=== PATIENT | female | born 1950 | race Caucasian/White ===

== ENCOUNTER 2024-05-24 18:58 | Emergency (ER) | payer OTHER ==
[2024-05-24] MEDS ORDERED: NA CHLORIDE 0.9% 1,000 ML ONE ×2 (19:07→21:14)
[2024-05-24 19:33] LABS: Absolute Basophils 0.1 K/uL (0-0.5); Absolute Eosinophils 0.2 K/uL (0-0.5); Absolute Lymphocytes (CBC) 0.6 K/uL (0.7-4.9); Absolute Monocytes 0.2 K/uL (0.1-1.3); Absolute Neutrophil 0.3 K/uL (1.8-8.0); Basophils % 6.2 % (0-1.3); Eosinophils % 16.1 % (0-4.4); Hematocrit 20.1 % (36.0-45.0); Hemoglobin 6.3 g/dL (12.0-15.0); Lymphocytes % 38.2 % (15.3-44.8); MCH 23.1 pg (27.0-35.0); MCHC 31.2 g/dL (32.0-36.0); MCV 73.9 fL (80-100); MPV 8.5 fL (7.6-11.3); Monocytes % 16.5 % (3.3-12.3); Nucleated Red Blood Cells % 0.6 % (0-0); Platelets 254 thou/uL (152-406); RBC Red Blood Cell Count 2.72 M/uL (3.86-4.86); Red Cell Distribution Width 18.5 % (12.1-15.2)
[2024-05-24 19:47] LABS: Albumin 2.8 g/dL (3.4-5.0); Albumin/Globulin Ratio 0.9 (1.1-1.8); Alkaline Phosphatase 71 U/L (45-117); Anion Gap 13.7 mEq/L (5.0-15.0); BUN Blood Urea Nitrogen 25 mg/dL (7-18); Bicarbonate 24 mEq/L (21-32); Bilirubin Total 0.2 mg/dL (0.2-1.0); Globulin 3.1 g/dL (2.3-3.5); Glomerular Filtration Rate 88 ml/min (=/>90); Glucose Level 123 mg/dL (74-106); Potassium 3.7 mEq/L (3.5-5.1); Protein, Total 5.9 g/dL (6.4-8.2); Sodium Level 137 mEq/L (136-145)
[2024-05-24 19:54] LABS: ALT/SGPT < 14 U/L (13-56); AST/SGOT < 10 U/L (15-37)
[2024-05-24 19:55] LABS: PTT, Activated Partial Thromb 26.4 SECONDS (24.3-36.9); Protime INR 1.17
[2024-05-24] MEDS ORDERED: NA CHLORIDE 0.9% 250 ML ONE ×2 (20:00→22:25)
[2024-05-24] MEDS ORDERED: PANTOPRAZOLE 40 MG INJ ONE (20:00)
--- NOTE | 2024-05-24 20:45 | RAD REPORT ---
EXAM DESCRIPTION: Simi Single View05/24/2024 7:55 pm CLINICAL HISTORY: hypotension COMPARISON: No comparisons TECHNIQUE: Portable AP view of the chest. FINDINGS: The lungs are clear. No pneumothorax or effusion. The cardiomediastinal contours are unre markable. IMPRESSION: No acute cardiopulmonary process.
[2024-05-24 20:58] LABS: Band Neutrophils 1 % (0-1); Differential Total Cells Count 100; Eosinophils 20 % (0-3); Lymphocytes 38 % (15-42); Monocytes 8 % (0-10); Nucleated Red Blood Cells 3 /100WBC; Segmented Neutrophils 26 % (40-80)
[2024-05-24 20:59] LABS: Blood Morphology Comment NOTED (NOT SEEN); Hypochromasia 3+; Platelet Estimate ADEQ
--- NOTE | 2024-05-24 21:24 | RAD REPORT ---
EXAM DESCRIPTION: CT - Abdomen Pelvis W Contrast - 05/24/2024 8:41 pm CLINICAL HISTORY: abd pain, hypotension COMPARISON: No comparisons TECHNIQUE: Thin cut axial CT imaging of the abdomen and pelvis was performed following intravenous a dministration of iodinated contrast PE Multiplanar reformats were generated and reviewed. All CT scans are performed using dose optimization technique as appropriate and may include automated exposure control or mA/KV adjustment according to patient size. FINDINGS: No suspicious findings in the lung bases. The liver, spleen, adrenal glands, and pancreas show no suspicious findings. Gallbladder and biliary tree are also without suspicious finding. Symmetric renal function is seen with no hydronephrosis or suspicious renal mass. Fat containing smal l right lower renal pole 13 mm lesion suggesting a small angiomyolipoma. No dilated bowel loops. Pronounced wall thickening along a short segment of small bowel in the right hemipelvis, measuring approximately 6.6 cm in length. Lumen patency is maintained. Wall thickening is circumferential and measuring up to 2.5 cm in thickness. No free air, free fluid or inflammatory str anding. Mild colonic diverticulosis without evidence of acute diverticulitis No hernia, mass or bulky lymphadenopathy. The urinary bladder is without significant finding. No suspicious bony findings. Sequelae of posterior approach L3-S1 hardware fusion. IMPRESSION: Marked circumferential wall thickening along a short segment of small bowel in the right hemipelvis, favored to represent lymphomatous involvement given the history. No other suspicious masses or adenopathy in the abdomen and pelvis. Other incidental findings as above.
--- NOTE | 2024-05-24 21:31 | ER ---
Nurse's Notes [facility] Name: Selina Juan Age: 74 yrs Sex: Female : 1950 Arrival Date: 05/24/2024 Time: 18:58 Bed 2 Private MD: Diagnosis: Anemia, unspecified;GI Bleed/ Gastrointestinal hemorrhage, unspecified Presentation: 05/24 19:05 Acuity: TALISHA 2 iw 19:05 Chief complaint: EMS states: low BP, GI bleed, black stool today. hx of lymphoma, iw recently started on chemo. 19:05 Onset of symptoms. iw 19:24 Coronavirus screen: At this time, the client does not indicate any symptoms associated iw with coronavirus-19. Ebola Screen: No symptoms or risks identified at this time. Initial Sepsis Screen: Does the patient meet any 2 criteria? HR > 90 bpm. Does the patient have a suspected source of infection?. Risk Assessment: Do you want to hurt yourself or someone else? Patient reports no desire to harm self or others. 19:24 Method Of Arrival: EMS: [facility] iw Historical: - Allergies: 19:26 Flagyl; iw 19:26 Adhesive; iw - Immunization history:: Adult Immunizations up to date. - Infectious Disease History:: Denies. - Family history:: not pertinent. - Hospitalizations: : Patient was recently seen at. - Social history:: Smoking status: Patient denies any tobacco usage or history of. Screenin:31 [facility] ED Fall Risk Assessment (Adult) History of falling in the last 3 months, iw including since admission No falls in past 3 months (0 pts) Confusion or Disorientation No (0 pts) Intoxicated or Sedated No (0 pts) Impaired Gait No (0 pts) Mobility Assist Device Used No (0 pt) Altered Elimination No (0 pt) Score/Fall Risk Level 0 - 2 = Low Risk Oriented to surroundings, Maintained a safe environment. Abuse screen: Denies injuries from another. Nutritional screening: No deficits noted. Tuberculosis screening: No symptoms or risk factors identified. Assessment: 19:30 General: Appears uncomfortable, ill, Behavior is cooperative, drowsy. Neuro: Level of iw Consciousness is obeys commands, Oriented to person, place, time, situation, Moves all extremities. Full function. Cardiovascular: Respiratory: Respiratory effort is even, unlabored, Respiratory pattern is regular. GI: Abdomen is flat, non-distended, Reports black stool. Derm: Skin is pale. Musculoskeletal: Range of motion: intact in all extremities. 20:30 Reassessment: Patient appears in no apparent distress at this time. No changes from al5 previously documented assessment. Patient and/or family updated on plan of care and expected duration. Pain level reassessed. Patient is alert, oriented x 3, equal unlabored respirations, skin warm/dry/pink. 22:07 Reassessment: Patient appears in no apparent distress at this time. Patient and/or al5 family updated on plan of care and expected duration. Pain level reassessed. Patient is alert, oriented x 3, equal unlabored respirations, skin warm/dry/pink. patient is more alert at this time. Pain: Denies pain. 23:48 Reassessment: Patient appears in no apparent distress at this time. No changes from al5 previously documented assessment. Patient and/or family updated on plan of care and expected duration. Pain level reassessed. Patient is alert, oriented x 3, equal unlabored respirations, skin warm/dry/pink. 05/25 01:13 Reassessment: Patient appears in no apparent distress at this time. No changes from al5 previously documented assessment. Patient and/or family updated on plan of care and expected duration. Pain level reassessed. Patient is alert, oriented x 3, equal unlabored respirations, skin warm/dry/pink. 01:27 Reassessment: patient complete blood transfusion. al5 03:29 Reassessment: gave report to LAXMI brooks at [facility]. al5 Vital Signs: 05/24 19:22 BP 117 / 50; Pulse 108; Resp 18; Temp 98.3; Pulse Ox 100% on R/A; Weight 65.77 kg; iw Height 5 ft. 4 in. ; 20:00 BP 115 / 59; Pulse 102; Resp 19; Pulse Ox 99% on R/A; al5 20:30 BP 116 / 51; Pulse 96; Resp 19; Pulse Ox 100% on R/A; al5 21:00 BP 116 / 51; Pulse 102; ec2 21:30 BP 114 / 54; Pulse 101; Resp 19; Pulse Ox 100% on R/A; al5 22:00 BP 127 / 49; Pulse 98; Resp 18; Pulse Ox 99% on R/A; al5 22:27 al5 23:56 BP 121 / 57; Pulse 92; ec2 05/25 01:27 BP 119 / 53; Pulse 89; Resp 17; Temp 98.5; Pulse Ox 99% on R/A; al5 02:35 BP 106 / 49; Pulse 93; Pulse Ox 97% on R/A; MAP 61 mmHg; tm6 05/24 19:22 Body Mass Index 24.89 (65.77 kg, 162.56 cm) iw 05/24 22:27 see blood transfusion flow sheet for vital signs. al5 ED Course: 18:59 Patient arrived in ED. rn 18:59 Glen Knight MD is Attending Physician. rn 19:04 Inserted saline lock: 20 gauge in left antecubital area, using aseptic technique. Blood iw collected. Flushed with 10 mL NS. 19:04 Inserted saline lock: 20 gauge in right antecubital area, using aseptic technique. iw Blood collected. Flushed with 10 mL NS. 19:13 Radiology exam delayed due to lab results not completed at this time. (BUN/Creatinine) nj IV insertion attempt and/or patient not having appropriate IV at this time. 19:16 Andrea Hernandez, LAXMI is Primary Nurse. tm6 19:24 Triage completed. iw 19:29 Arm band placed on. iw 19:55 Notified ED physician of a critical lab result(s). Lactate 5.1. vc1 19:57 Chest Single View XRAY In Process Unspecified. EDMS 20:26 Attending Physician role handed off by Glen Knight MD ec2 20:26 Bassam Garrison MD is Attending Physician. ec2 20:43 CT Abd/Pelvis - IV Contrast Only In Process Unspecified. EDMS 21:12 EKG done, by ED staff, reviewed by Bassam Garrison MD. tm6 21:32 Urinalysis w/ reflexes Sent. tm6 21:32 Assisted to bedside commode. tm6 22:06 No provider procedures requiring assistance completed. al5 22:07 Patient has correct armband on for positive identification. Placed in gown. Bed in low al5 position. Call light in reach. Side rails up X2. Provided Education on: Blood Transfusion, need for transfer. 05/25 02:48 Packed RBC Leukored Sent. al5 03:20 Patient transferred, IV remains in place. al5 Administered Medications: 05/24 19:15 Drug: NS 0.9% IV (20 ml/kg) 20 ml/kg IV at 1 bolus once Route: IV; Rate: 1 bolus; Site: iw right antecubital; 05/25 01:13 Follow up: Response: No adverse reaction; IV Status: Completed infusion; IV Intake: al5 658ml 02:48 Follow up: Response: No adverse reaction; IV Status: Completed infusion; IV Intake: al5 1000ml 05/24 20:17 Drug: Pantoprazole IVP 40 mg IVP once Route: IVP; Site: right antecubital; tm6 20:48 Follow up: Response: No adverse reaction tm6 20:17 Drug: Pantoprazole IV 8 mg/hr IV at 25 ml/hr continuous; (Standard dilution is 80 mg in tm6 250 mL NS) Route: IV; Rate: 25 ml/hr; Site: right antecubital; 20:48 Follow up: Response: No adverse reaction tm6 21:17 Drug: NS 0.9% IV (20 ml/kg) 10 ml/kg IV at 1 bolus once Route: IV; Rate: 1 bolus; Site: al5 left antecubital; 05/25 02:37 Follow up: Response: No adverse reaction; IV Status: Completed infusion; IV Intake: tm6 657ml Medication: 05/24 19:32 VIS not applicable for this client. iw Intake: 05/25 01:13 IV: 658ml; Total: 658ml. al5 02:37 IV: 657ml; Total: 1315ml. tm6 02:48 IV: 1000ml; Total: 2315ml. al5 Outcome: 05/24 21:30 ER care complete, transfer ordered by . ec2 05/25 03:20 Transferred by ground EMS to [facility], Transfer form completed. X-rays sent al5 w/ patient. Condition: stable Instructed on the need for transfer, 03:38 Patient left the ED. al5 Signatures: Dispatcher [employer] Jody Machuca RN RN iw Glen Knight MD MD rn Jordan, Nathan nj Calcote, Vanessa, RN RN vc1 Bassam Garrison MD MD 2 Andrea Hernandez RN RN tm6 Kacie Steve RN RN al5 Corrections: (The following items were deleted from the chart) 05/24 19:26 19:24 Chief complaint: EMS states: low BP, GI bleed, black stool today. hx of lymphoma, iw recently started on chemo iw 19:32 19:30 GI: Abdomen is flat, non-distended, iw iw 23:14 22:50 Patient admitted, IV remains in place. al5 al5 23:14 22:50 Admitted to Med/surg accompanied by nurse, accompanied by tech, via stretcher, al5 room 230, with chart, al5 23:14 22:50 Instructed on the need for admit, al5 al5 23:14 22:50 Condition: stable al5 al5 05/25 01:12 05/24 22:07 Reassessment: Patient appears in no apparent distress at this time. No al5 changes from previously documented assessment. Patient and/or family updated on plan of care and expected duration. Pain level reassessed. Patient is alert, oriented x 3, equal unlabored respirations, skin warm/dry/pink. al5
--- NOTE | 2024-05-24 21:31 | EDPHYS ---
Physician Documentation [facility] Name: Selina Juan Age: 74 yrs Sex: Female : 1950 Arrival Date: 05/24/2024 Time: 18:58 Bed 2 Private MD: ED Physician Bassam Garrison HPI: 05/24 19:02 This 74 yrs old Female presents to ER via Unassigned with complaints of abdominal pain. rn 19:02 The patient presents with abdominal pain right lower quadrant, in the left lower rn quadrant. Onset: The symptoms/episode began/occurred yesterday. The symptoms do not radiate. Associated signs and symptoms: Pertinent positives: blood in stools, diarrhea, Pertinent negatives: fever. The symptoms are described as achy, crampy. Modifying factors: The symptoms are alleviated by nothing, the symptoms are aggravated by touching the area. Severity of pain: At its worst the pain was moderate in the emergency department the pain is unchanged. The patient has experienced similar episodes in the past. Patient reports has lymphoma, just had her first chemotherapy treatment this past few weeks. Was doing okay, had H\T\H at [facility] [place] that showed was in the se[facility] this week. Comes in today for abdominal pain, lower abdomen, associated with loose stool and dark black stool. Feels generalized weakness. No fever.. Historical: - Allergies: 19:26 Flagyl; iw 19:26 Adhesive; iw - Immunization history:: Adult Immunizations up to date. - Infectious Disease History:: Denies. - Family history:: not pertinent. - Hospitalizations: : Patient was recently seen at. - Social history:: Smoking status: Patient denies any tobacco usage or history of. ROS: 19:02 Constitutional: Negative for fever, chills Cardiovascular: Negative for chest pain, rn palpitations, and edema, Respiratory: Negative for shortness of breath, cough, wheezing, and pleuritic chest pain, Abdomen/GI: Positive for abdominal pain with dark black stool MS/Extremity: Negative for injury and deformity, Skin: Negative for injury, rash, and discoloration, Neuro: Positive for generalized weakness Exam: 19:02 Constitutional: This is a well developed, well nourished patient who is awake, slow to rn respond, appears pale ENT: Dry mucous membranes Cardiovascular: Regular rate and rhythm. No pulse deficits. Respiratory: No increased work of breathing, no retractions or nasal flaring. Abdomen/GI: Soft, mild suprapubic and left lower quadrant as well as right lower quadrant tenderness. MS/ Extremity: Pulses equal, no cyanosis. Neuro: Awake and alert, GCS 15 Vital Signs: 19:22 BP 117 / 50; Pulse 108; Resp 18; Temp 98.3; Pulse Ox 100% on R/A; Weight 65.77 kg; iw Height 5 ft. 4 in. ; 20:00 BP 115 / 59; Pulse 102; Resp 19; Pulse Ox 99% on R/A; al5 20:30 BP 116 / 51; Pulse 96; Resp 19; Pulse Ox 100% on R/A; al5 21:00 BP 116 / 51; Pulse 102; ec2 21:30 BP 114 / 54; Pulse 101; Resp 19; Pulse Ox 100% on R/A; al5 22:00 BP 127 / 49; Pulse 98; Resp 18; Pulse Ox 99% on R/A; al5 22:27 al5 23:56 BP 121 / 57; Pulse 92; ec2 05/25 01:27 BP 119 / 53; Pulse 89; Resp 17; Temp 98.5; Pulse Ox 99% on R/A; al5 02:35 BP 106 / 49; Pulse 93; Pulse Ox 97% on R/A; MAP 61 mmHg; tm6 05/24 19:22 Body Mass Index 24.89 (65.77 kg, 162.56 cm) iw 05/24 22:27 see blood transfusion flow sheet for vital signs. al5 MDM: 18:59 Patient medically screened. rn 19:40 ED course: BP improving with IV fluid bolus. rn 20:38 Data reviewed: vital signs. ED course: Patient signed out to me of his physician, in ec2 brief patient arrives today for evaluation of melena, concern for hypotension. Labs are pertinent for a hemoglobin of 6.3. Patient had outpatient labs yesterday that had a hemoglobin of 7.6. Patient not anticoagulated or on blood thinners. Patient is on chemotherapy for non-Hodgkin's plan is follow-up CT scan of the abdomen pelvis, transfer, transfuse blood. lymphoma, recently treated 2 weeks ago.. 20:47 ED course: Chest x-ray shows no acute intrathoracic process. Chest x-ray independently ec2 reviewed and interpreted by me, shows no acute intrathoracic process.. 20:50 ED course: Family updated regarding plan of care and agreeable.. ec2 21:15 ED course: EKG independently reviewed and interpreted by me, shows sinus tachycardia, ec2 rate 102, no acute ST segment elevations, intervals are nonconcerning. . 21:29 ED course: CT imaging shows lymphomatous disease.Will proceed w/ transfer. . ec2 21:30 ED course: Will attempt transfer to [facility] as patient gets her cancer care ec2 there and also we do not have GI coverage.. 23:45 ED course: Patient with improving lactic acid.. ec2 05/24 19:01 Order name: Type And Screen rn 05/24 19:00 Order name: Blood Culture Adult (2) 05/24 19:00 Order name: CBC with Diff; Complete Time: 21:29 / 19:00 Order name: CMP; Complete Time: 20:27 / 19:00 Order name: Lactate w/ 2H reflex if indic.; Complete Time: 20:27 /16 19:00 Order name: Protime (+inr); Complete Time: 20:27 /16 19:00 Order name: Ptt, Activated; Complete Time: 20:27 /16 19:00 Order name: Urinalysis w/ reflexes; Complete Time: 22:00 / 19:55 Order name: Manual Differential; Complete Time: 21:29 EDDE 05/24 21:14 Order name: Packed RBC Leukored [facility] 05/24 21:41 Order name: ABO/RH no charge; Complete Time: 22:00 EDDE 05/24 22:00 Order name: Ghost Lactate-NO COLLECT Timer; Complete Time: 22:00 EDDE 05/24 22:45 Order name: Lactate Sepsis 2 HR Follow-up; Complete Time: 23:45 EDDE 05/24 19:00 Order name: Chest Single View XRAY; Complete Time: 20:47 rn 05/24 19:00 Order name: CT Abd/Pelvis - IV Contrast Only; Complete Time: 21:29 rn 16 19:00 Order name: Accucheck; Complete Time: 19:33 rn 05/24 19:00 Order name: Cardiac monitoring; Complete Time: 19:32 rn 05/24 19:00 Order name: EKG - Nurse/Tech; Complete Time: 21:07 rn 05/24 19:00 Order name: IV Saline Lock - Large Bore; Complete Time: 19:33 rn 05/24 19:00 Order name: Labs collected and sent; Complete Time: 19:32 rn 05/24 19:00 Order name: O2 Per Protocol; Complete Time: 19:33 rn 05/24 19:00 Order name: O2 Sat Monitoring; Complete Time: 19:33 rn 05/24 19:00 Order name: Vital Signs; Complete Time: 19:33 rn 05/24 20:29 Order name: Consent for Blood Transfusion; Complete Time: 21:06 ec2 05/24 20:29 Order name: IV Saline Lock; Complete Time: 20:52 ec2 Administered Medications: 19:15 Drug: NS 0.9% IV (20 ml/kg) 20 ml/kg IV at 1 bolus once Route: IV; Rate: 1 bolus; Site: iw right antecubital; 05/25 01:13 Follow up: Response: No adverse reaction; IV Status: Completed infusion; IV Intake: al5 658ml 02:48 Follow up: Response: No adverse reaction; IV Status: Completed infusion; IV Intake: al5 1000ml 05/24 20:17 Drug: Pantoprazole IVP 40 mg IVP once Route: IVP; Site: right antecubital; tm6 20:48 Follow up: Response: No adverse reaction tm6 20:17 Drug: Pantoprazole IV 8 mg/hr IV at 25 ml/hr continuous; (Standard dilution is 80 mg in tm6 250 mL NS) Route: IV; Rate: 25 ml/hr; Site: right antecubital; 20:48 Follow up: Response: No adverse reaction tm6 21:17 Drug: NS 0.9% IV (20 ml/kg) 10 ml/kg IV at 1 bolus once Route: IV; Rate: 1 bolus; Site: al5 left antecubital; 05/25 02:37 Follow up: Response: No adverse reaction; IV Status: Completed infusion; IV Intake: tm6 657ml Disposition Summary: 05/24/24 21:30 Transfer Ordered Notes: Transfer Location: [facility] ec2 Reason: Higher level of care ec2 Condition: Stable ec2 Problem: an acute exacerbation ec2 Symptoms: have improved ec2 Accepting Physician: transferring doc(05/25/24 03:38) al5 Diagnosis - Anemia, unspecified ec2 - GI Bleed/ Gastrointestinal hemorrhage, unspecified ec2 Forms: - Medication Reconciliation Form ec2 - SBAR form ec2 Critical care time excluding procedures: 05/24 20:38 Critical care time: Bedside Care: 30 minutes, Consultation: 5 minutes. Total time: 35 ec2 minutes Signatures: Dispatcher [employer] Jody Machuca RN RN Glen Knight MD MD rn Corral, Edwin, MD MD ec2 Andrea Hernandez RN RN tm6 Kacie Steve RN RN al5 Corrections: (The following items were deleted from the chart) 20:47 20:47 ED course: Chest x-ray shows no acute intrathoracic process.. ec2 ec2 21:13 20:29 PACKED RBC LEUKORED+BB.LAB.BRZ ordered. EDMS EDMS 21:13 20:32 ABO/RH typing ordered. EDMS EDMS 21:13 20:32 Antibody Screen ordered. EDMS EDMS 05/25 03:38 05/24 21:30 transferring doc ec2 al5
[2024-05-24 21:48] LABS: Specific Gravity > 1.030 (1.005-1.030); Sqamous Epithelial <5 /HPF (None Seen); Urine Bacteria None Seen /HPF (<20); Urine Bilirubin NEGATIVE (Negative); Urine Blood 2+ (Negative); Urine Clarity Clear (Clear); Urine Color Colorless (Yellow); Urine Culture Reflex Order NOT NEEDED; Urine Glucose NEGATIVE (Negative); Urine Ketones NEGATIVE (Negative); Urine Microscopic Reflex YN ORDER UMIC; Urine Nitrite NEGATIVE (Negative); Urine Protein NEGATIVE (Negative); Urine RBC <5 /HPF (None Seen); Urine Urobilinogen Normal (Normal); Urine WBC <5 /HPF (<5); Urine pH 6.5 (5.0-7.0)
[2024-05-25 03:55] VITALS: TEMP 98.5
[2024-05-25 03:56] VITALS: BP 106/49; O2SAT 97
== END 2024-05-25 03:38 | disposition short-term general hospital (02) ==
LOC: ER 18:58
PROC: 30233N1 Transfusion of Nonautologous Red Blood Cells into Peripheral Vein, Percutaneous Approach (ICD-10-PCS; principal; 2024-05-25)
DX: D64.9 Anemia, unspecified (principal); C85.90 Non-Hodgkin lymphoma, unspecified, unspecified site
CPT/HCPCS: 96361; 87040 ×2; 85025; 81001; 36415; 86900; 86850; 85610; 86901; 83605 ×2; 85730; 86920; 80053; 74177; 71045; 96374; 99285; 36430; Q9967; J2470; P9016; J7050 ×2; J7030 ×2; 93005

== ENCOUNTER 2024-07-17 06:20 | Day surgery (SDC) | payer OTHER ==
[2024-07-16 12:19] LABS: Absolute Basophils 0.1 K/uL (0-0.5); Absolute Eosinophils 0.2 K/uL (0-0.5); Absolute Lymphocytes (CBC) 0.4 K/uL (0.7-4.9); Absolute Monocytes 0.6 K/uL (0.1-1.3); Absolute Neutrophil 3.2 K/uL (1.8-8.0); Basophils % 2.5 % (0-1.3); Eosinophils % 3.9 % (0-4.4); Hematocrit 35.7 % (36.0-45.0); Hemoglobin 11.7 g/dL (12.0-15.0); Lymphocytes % 8.9 % (15.3-44.8); MCH 28.7 pg (27.0-35.0); MCHC 32.7 g/dL (32.0-36.0); MCV 87.7 fL (80-100); Monocytes % 13.4 % (3.3-12.3); Neutrophils % 71.3 % (41.7-73.7); Platelets 335 thou/uL (152-406); RBC Red Blood Cell Count 4.07 M/uL (3.86-4.86); Red Cell Distribution Width 15.1 % (12.1-15.2)
[2024-07-16 12:41] LABS: Anion Gap 8.8 mEq/L (5.0-15.0); Potassium 3.8 mEq/L (3.5-5.1)
[2024-07-17] MEDS: NA CHLORIDE 0.9% 1,000 ML ONE (06:50)
[2024-07-17] MEDS ORDERED: ONDANSETRON 4 MG/2 ML VIAL ONE (07:10)
[2024-07-17] MEDS ORDERED: FENTANYL CITR 100 MCG/2 ML ONE (07:10)
[2024-07-17] MEDS ORDERED: LIDOCAINE 2% MPF 5 ML VIAL ONE (07:10)
[2024-07-17] MEDS ORDERED: propofoL 200 MG/20 ML VIAL IV ONE (07:10)
[2024-07-17] MEDS ORDERED: LIDOCAINE 1% 20 ML MDV ONE (07:24)
[2024-07-17] MEDS ORDERED: NS 0.9% VIAL 20 ML ONE (07:24)
[2024-07-17] MEDS ORDERED: HEPARIN 5000 UNIT/ML 1 ML VIAL ONE (07:24)
[2024-07-17] MEDS: CEFAZOLIN SODIUM 2 GM/VIAL ONE (07:40)
[2024-07-17] MEDS ORDERED: dexAMETHasone 4 MG/ML VIAL ONE (07:55)
--- NOTE | 2024-07-17 08:49 | P.OP ---
Date of Service: 07/17/24 Preop diagnosis: Small bowel lymphoma Postop diagnosis: Same Procedure performed: Right IJ Port-A-Cath device, utilization of Doppler and fluoroscopy Surgeon: Delta Keita MD Electrical Design Engineer: Erum BARRIOS Estimated blood loss: Minimal Specimen: None Findings: Normal anatomy Anesthesia: General Complications: None Drains: None Fluids and blood products: Nonapplicable Disposition: Recovery room Operative note: Patient brought to the OR and placed in the supine position. General anesthesia began. Patient prepped and draped in the usual sterile fashion. Marcaine 0.5% obtained locally. Doppler device used to identify the right internal jugular vein. 18-gauge needle used to access the right internal jugular vein and guidewire passed. Position confirmed with fluoroscopy. 3 cm incision made on the right anterior chest. Pocket created. Bleeding controlled cautery. Tunneling device used to tunnel the catheter between the 2 wounds. Fluoroscopy used to put the tip of the catheter in the right atrial SVC junction. Catheter cut to appropriate size and attached to the Port-A-Cath device. Port-A-Cath device attached to subcutaneous tissue with 3-0 Vicryl. 0 chromic used to reapproximate subcutaneous tissue and close skin. Catheter flushed with heparin and packed with heparin with good blood flow. Sterile resting applied. Patient awakened and taken to recovery room in good general condition. A chest x-ray has been ordered. CC: Dr. Herrera's office
[2024-07-17] MEDS ORDERED: HYDROCODONE/APAP 7.5/325 MG TAB PO PRN (08:52)
--- NOTE | 2024-07-17 09:15 | RAD REPORT ---
EXAM: Fluoroscopy use, Fluoroscopy <1 Hour HISTORY: PORT A CATH COMPARISON: None FINDINGS: A total of 3 images were sent to PACS, during a fluoroscopically guided. No radiologist was involved in protocoling or performance of the study, and no radiologist was present for the duration of the procedure. No interpretation of the saved images will be provided. Total fluoroscopy time: 0.5 minutes. IMPRESSION: Documentation of fluoroscopy use as above.
--- NOTE | 2024-07-17 09:21 | RAD REPORT ---
EXAMINATION: ONE VIEW CHEST XR CLINICAL INDICATION: Status post Port-A-Cath device placement TECHNIQUE: Frontal chest projection is submitted. Examination is limited by patient positioning and t echnique. COMPARISON: 05/24/2024 FINDINGS: Right-sided port catheter is tip in the SVC. No postprocedure pneumothorax. The heart is upper limit of normal in size. IMPRESSION: No postprocedural pneumothorax seen.
[2024-07-17 10:44] VITALS: BP 103/54; TEMP 98; O2SAT 97
== END 2024-07-17 10:20 | disposition home or self-care (01) ==
LOC: OR 06:20
PROVIDERS: ATTEND Surgery
PROC: 0JH60WZ Insertion of Totally Implantable Vascular Access Device into Chest Subcutaneous Tissue and Fascia, Open Approach (ICD-10-PCS; principal; 2024-07-17 07:30)
DX: C83.00 Small cell B-cell lymphoma, unspecified site (principal); I10 Essential (primary) hypertension
CPT/HCPCS: 85025; 80048; 36415; 82947 ×2; 71045; 36561; J1644 ×2; A4216; J2704; J1100; J2001; J3010; J2405; J7030; C1788; 76000

== ENCOUNTER 2024-08-01 10:52 | Emergency (ER) | payer OTHER ==
[2024-08-01] MEDS ORDERED: NA CHLORIDE 0.9% 1,000 ML ONE ×2 (11:29→13:46)
[2024-08-01] MEDS ORDERED: LIDOCAINE HCL JELLY 2% 6 ML SYRINGE TOP ONE (11:39)
[2024-08-01 12:06] LABS: Absolute Monocytes 0.2 K/uL (0.1-1.3); Absolute Neutrophil 2.8 K/uL (1.8-8.0); Basophils % 0.1 % (0-1.3); Eosinophils % 0.1 % (0-4.4); Hemoglobin 10.4 g/dL (12.0-15.0); Lymphocytes % 0.9 % (15.3-44.8); MCHC 32.6 g/dL (32.0-36.0); MCV 85.6 fL (80-100); MPV 8.6 fL (7.6-11.3); Monocytes % 7.5 % (3.3-12.3); Neutrophils % 91.4 % (41.7-73.7); Nucleated Red Blood Cells % 0.1 % (0-0); Platelets 110 thou/uL (152-406); RBC Red Blood Cell Count 3.73 M/uL (3.86-4.86); Red Cell Distribution Width 14.8 % (12.1-15.2)
[2024-08-01 12:12] LABS: PT Prothrombin Time 15.3 SECONDS (9.4-12.5); Protime INR 1.38
[2024-08-01 12:30] LABS: ALT/SGPT 26 U/L (13-56); AST/SGOT 18 U/L (15-37); Albumin 1.9 g/dL (3.4-5.0); Albumin/Globulin Ratio 0.6 (1.1-1.8); Alkaline Phosphatase 70 U/L (45-117); Anion Gap 13.5 mEq/L (5.0-15.0); BUN Blood Urea Nitrogen 11 mg/dL (7-18); Bicarbonate 23 mEq/L (21-32); Bilirubin Direct 0.3 mg/dL (0-0.2); Bilirubin Indirect, Calculated 0.2 mg/dL (0.2-0.8); Bilirubin Total 0.5 mg/dL (0.2-1.0); Globulin 3.3 g/dL (2.3-3.5); Glomerular Filtration Rate 102 ml/min (=/>90); Glucose Level 117 mg/dL (74-106); Magnesium 1.9 mg/dL (1.6-2.4); NT PRO-BNP 318 pg/mL (<125); Potassium 3.5 mEq/L (3.5-5.1); Protein, Total 5.2 g/dL (6.4-8.2); Sodium Level 132 mEq/L (136-145); Troponin High Sensitivity 8.1 pg/mL (<58.9)
[2024-08-01 12:31] LABS: Lipase < 6 U/L (13-75)
--- NOTE | 2024-08-01 12:36 | RAD REPORT ---
EXAMINATION: ONE VIEW CHEST XR CLINICAL INDICATION: COUGH TECHNIQUE: Frontal chest projection is submitted. Examination is limited by patient positioning and t echnique. COMPARISON: 07/17/2024 FINDINGS: Mildly emphysematous lung murcia noted. The heart is upper limit of normal in size. No displaced frac tures identified. Right port catheter is tip in SVC. Left humeral head prosthesis. IMPRESSION: No acute intrathoracic abnormalities.
[2024-08-01 12:37] LABS: Atypical Lymphocytes 1 %; Band Neutrophils 9 % (0-1); Differential Total Cells Count 100; Lymphocytes 1 % (15-42); Monocytes 9 % (0-10); Platelet Estimate DECR; Segmented Neutrophils 80 % (40-80)
[2024-08-01 12:38] LABS: Anisocytosis 1+; Blood Morphology Comment NOTED (NOT SEEN); Dohle Bodies PRESENT; Toxic Granulation 2+
[2024-08-01 14:29] LABS: Specific Gravity < 1.005 (1.005-1.030); Sqamous Epithelial <5 /HPF (None Seen); Urine Bacteria <20 /HPF (<20); Urine Bilirubin NEGATIVE (Negative); Urine Blood Negative (Negative); Urine Clarity Turbid (Clear); Urine Color Light-Yellow (Yellow); Urine Culture Reflex Order NOT NEEDED; Urine Glucose NEGATIVE (Negative); Urine Ketones 1+ (Negative); Urine Microscopic Reflex YN ORDER UMIC; Urine Nitrite NEGATIVE (Negative); Urine Protein NEGATIVE (Negative); Urine RBC <5 /HPF (None Seen); Urine Urobilinogen Normal (Normal); Urine WBC <5 /HPF (<5); Urine WBC Clump Rare /HPF (None Seen); Urine pH 6.5 (5.0-7.0)
--- NOTE | 2024-08-01 15:19 | ER ---
Nurse's Notes [facility] Name: Selina Juan Age: 74 yrs Sex: Female : 1950 Arrival Date: 08/01/2024 Time: 10:52 Bed 6 Private MD: Diagnosis: Weakness;Dehydration Presentation: 08/01 11:04 Chief complaint: Patient states: DIARRHEA X 1 WEEK AND WEAKNESS X 3 DAYS. SENT BY [facility] FOR FLUID HYDRATION. STATES IS RECEIVING TREATMENT FOR LYMPHOMA STAGE 4. Coronavirus screen: Client denies travel out of the [place] in the last 14 days. At this time, the client does not indicate any symptoms associated with coronavirus-19. Ebola Screen: Patient negative for fever greater than or equal to 101.5 degrees Fahrenheit, and additional compatible Ebola Virus Disease symptoms Patient denies exposure to infectious person. Patient denies travel to an Ebola-affected area in the 21 days before illness onset. No symptoms or risks identified at this time. Initial Sepsis Screen: Does the patient meet any 2 criteria? No. Patient's initial sepsis screen is negative. Does the patient have a suspected source of infection? No. Patient's initial sepsis screen is negative. Risk Assessment: Do you want to hurt yourself or someone else? Patient reports no desire to harm self or others. Onset of symptoms was July 28, 2024. 11:04 Method Of Arrival: Wheelchair db 11:04 Acuity: TALISHA 3 db Triage Assessment: 11:05 General: Appears in no apparent distress. uncomfortable, Behavior is calm, cooperative. db Pain: Complains of pain in abdomen. Neuro: Level of Consciousness is awake, alert, obeys commands, Oriented to person, place, time, situation. Respiratory: Airway is patent Respiratory effort is even, unlabored, Respiratory pattern is regular, symmetrical. GI: Reports upper abdominal pain, diarrhea. GI: Reports nausea. Historical: - Allergies: 11: adhesive; db 11: Flagyl; db - PMHx: 11: LYMPHOMA STAGE 4; Hypertensive disorder; Diabetes mellitus; Hypercholesterolemia; db - PSHx: 11:05 MEDIPORT; db - Immunization history:: Adult Immunizations unknown. - Infectious Disease History:: Denies. - Social history:: Smoking status: Patient denies any tobacco usage or history of. Screenin:05 [facility] Fall Risk Assessment (Adult) History of falling in the last 3 months, rs5 including since admission No falls in past 3 months (0 pts) Confusion or Disorientation No (0 pts) Intoxicated or Sedated No (0 pts) Impaired Gait No (0 pts) Mobility Assist Device Used Yes (1 pt) Altered Elimination No (0 pt) Score/Fall Risk Level 0 - 2 = Low Risk Oriented to surroundings, Maintained a safe environment. Abuse screen: Denies threats or abuse. Nutritional screening: No deficits noted. Tuberculosis screening: No symptoms or risk factors identified. Assessment: 11:05 General: Appears in no apparent distress. uncomfortable, Behavior is calm, cooperative. rs5 Pain: Complains of pain in abdomen Pain currently is 3 out of 10 on a pain scale. Quality of pain is described as aching, Pain began suddenly. Neuro: Level of Consciousness is awake, alert, obeys commands, Oriented to person, place, time, situation. Cardiovascular: Patient's skin is warm and dry. Respiratory: Airway is patent Respiratory effort is even, unlabored, Respiratory pattern is regular, symmetrical. GI: Abdomen is round non-distended, Abd is soft and non tender X 4 quads. : No signs and/or symptoms were reported regarding the genitourinary system. EENT: No signs and/or symptoms were reported regarding the EENT system. Derm: Skin is intact, Skin is pink, warm \T\ dry. Musculoskeletal: Range of motion: intact in all extremities. 12:05 Reassessment: Patient and/or family updated on plan of care and expected duration. Pain rs5 level reassessed. Patient is alert, oriented x 3, equal unlabored respirations, skin warm/dry/pink. 13:10 Reassessment: Patient and/or family updated on plan of care and expected duration. Pain rs5 level reassessed. Patient is alert, oriented x 3, equal unlabored respirations, skin warm/dry/pink. 14:15 Reassessment: Patient and/or family updated on plan of care and expected duration. Pain rs5 level reassessed. Patient is alert, oriented x 3, equal unlabored respirations, skin warm/dry/pink. 15:01 Reassessment: No changes from previously documented assessment. rs5 15:35 Reassessment: Patient and/or family updated on plan of care and expected duration. Pain rs5 level reassessed. Patient is alert, oriented x 3, equal unlabored respirations, skin warm/dry/pink. Vital Signs: 11:04 BP 109 / 67; Pulse 113; Resp 18; Temp 98.7(O); Pulse Ox 95% ; Weight 58.97 kg; Height 5 db ft. 1 in. ; Pain 5/10; 12:54 BP 110 / 74; Pulse 80; Resp 17; Pulse Ox 97% on R/A; rs5 15:01 BP 107 / 70; Pulse 74; Resp 17; Pulse Ox 99% on R/A; rs5 11:04 Body Mass Index 24.56 (58.97 kg, 154.94 cm) db 11:04 Pain Scale: Adult db ED Course: 10:58 Patient arrived in ED. sj2 11:03 Cayden Collado MD is Attending Physician. alivia 11:05 Triage completed. db 11:05 Arm band placed on. db 11:05 Patient has correct armband on for positive identification. Placed in gown. Bed in low rs5 position. Call light in reach. Side rails up X2. 11:05 No provider procedures requiring assistance completed. rs5 11:33 Navin Ruffin, RN is Primary Nurse. rs5 12:26 XRAY Chest (1 view) In Process Unspecified. EDMS 15:38 IV discontinued, intact, bleeding controlled, No redness/swelling at site. Pressure rs5 dressing applied. Administered Medications: 11:20 Drug: NS 0.9% IV 1000 ml IV at 1 bolus Per protocol; to be given as a bolus over 60 rs5 minutes Route: IV; Rate: 1 bolus; Site: Port-a-cath; 12:17 Follow up: Response: No adverse reaction; IV Status: Completed infusion; IV Intake: rs5 1000ml 14:00 Drug: NS 0.9% IV 1000 ml IV at 1000 ml once; to be given as a bolus over 60 minutes rs5 Route: IV; Rate: 1000 ml; Site: Port-a-cath; 15:01 Follow up: Response: No adverse reaction; IV Status: Completed infusion rs5 Medication: 12:54 VIS not applicable for this client. rs5 Intake: 12:17 IV: 1000ml; Total: 1000ml. rs5 Outcome: 15:18 Discharge ordered by . alivia 15:38 Discharged to home ambulatory, rs5 15:38 Condition: stable rs5 15:38 Discharge instructions given to patient, family, Instructed on discharge instructions, follow up and referral plans. Demonstrated understanding of instructions, follow-up care, 15:40 Patient left the ED. ss Signatures: Dispatcher [employer] EDIL Cayden Collado MD MD cha Blanchard, Shelby, RN RN Sulma Zhou RN RN db Sotelo, Ricky, RN RN rs Issa Cope [facility]
--- NOTE | 2024-08-01 15:19 | EDPHYS ---
Physician Documentation [facility] Name: Selina Juan Age: 74 yrs Sex: Female : 1950 Arrival Date: 08/01/2024 Time: 10:52 Bed 6 Private MD: LIBERTY Physician Cayden Collado HPI: 08/01 15:11 This 74 yrs old Female presents to ER via Wheelchair with complaints of [facility] SENT FOR IV FLUIDS. 15:11 weak and dehydrated. Onset: The symptoms/episode began/occurred 2 day(s) ago. Severity alivia of symptoms: At their worst the symptoms were mild in the emergency department the symptoms are unchanged. The patient has experienced similar episodes in the past, several times. Historical: - Allergies: 11:05 adhesive; db 11:05 Flagyl; db - PMHx: 11:05 LYMPHOMA STAGE 4; Hypertensive disorder; Diabetes mellitus; Hypercholesterolemia; db - PSHx: 11:05 MEDIPORT; db - Immunization history:: Adult Immunizations unknown. - Infectious Disease History:: Denies. - Social history:: Smoking status: Patient denies any tobacco usage or history of. ROS: 15:15 Constitutional: Negative for fever, chills, and weight loss, Eyes: Negative for injury, alivia pain, redness, and discharge, ENT: Negative for injury, pain, and discharge, Neck: Negative for injury, pain, and swelling, Cardiovascular: Negative for chest pain, palpitations, and edema, Respiratory: Negative for shortness of breath, cough, wheezing, and pleuritic chest pain, Abdomen/GI: Negative for abdominal pain, nausea, vomiting, diarrhea, and constipation, Back: Negative for injury and pain, : Negative for injury, bleeding, discharge, and swelling, MS/Extremity: Negative for injury and deformity, Skin: Negative for injury, rash, and discoloration, Psych: Negative for depression, anxiety, suicide ideation, homicidal ideation, and hallucinations, Allergy/Immunology: Negative for hives, rash, and allergies, Endocrine: Negative for neck swelling, polydipsia, polyuria, polyphagia, and marked weight changes, Hematologic/Lymphatic: Negative for swollen nodes, abnormal bleeding, and unusual bruising, 15:15 Neuro: Positive for weakness, Exam: 15:15 Constitutional: This is a well developed, well nourished patient who is awake, alert, alivia and in no acute distress. Head/Face: Normocephalic, atraumatic. Eyes: Pupils equal round and reactive to light, extra-ocular motions intact. Lids and lashes normal. Conjunctiva and sclera are non-icteric and not injected. Cornea within normal limits. Periorbital areas with no swelling, redness, or edema. ENT: Nares patent. No nasal discharge, no septal abnormalities noted. Tympanic membranes are normal and external auditory canals are clear. Oropharynx with no redness, swelling, or masses, exudates, or evidence of obstruction, uvula midline. Mucous membranes moist. Neck: Trachea midline, no thyromegaly or masses palpated, and no cervical lymphadenopathy. Supple, full range of motion without nuchal rigidity, or vertebral point tenderness. No Meningismus. Chest/axilla: Normal chest wall appearance and motion. Nontender with no deformity. No lesions are appreciated. Cardiovascular: Regular rate and rhythm with a normal S1 and S2. No gallops, murmurs, or rubs. Normal PMI, no JVD. No pulse deficits. Respiratory: Lungs have equal breath sounds bilaterally, clear to auscultation and percussion. No rales, rhonchi or wheezes noted. No increased work of breathing, no retractions or nasal flaring. Abdomen/GI: Soft, non-tender, with normal bowel sounds. No distension or tympany. No guarding or rebound. No evidence of tenderness throughout. Back: No spinal tenderness. No costovertebral tenderness. Full range of motion. Female : Normal external genitalia. Skin: Warm, dry with normal turgor. Normal color with no rashes, no lesions, and no evidence of cellulitis. MS/ Extremity: Pulses equal, no cyanosis. Neurovascular intact. Full, normal range of motion. Neuro: Awake and alert, GCS 15, oriented to person, place, time, and situation. Cranial nerves II-XII grossly intact. Motor strength 5/5 in all extremities. Sensory grossly intact. Cerebellar exam normal. Normal gait. Psych: Awake, alert, with orientation to person, place and time. Behavior, mood, and affect are within normal limits. 15:15 ECG was reviewed by the Attending Physician. Vital Signs: 11:04 BP 109 / 67; Pulse 113; Resp 18; Temp 98.7(O); Pulse Ox 95% ; Weight 58.97 kg; Height 5 db ft. 1 in. ; Pain 5/10; 12:54 BP 110 / 74; Pulse 80; Resp 17; Pulse Ox 97% on R/A; rs5 15:01 BP 107 / 70; Pulse 74; Resp 17; Pulse Ox 99% on R/A; rs5 11:04 Body Mass Index 24.56 (58.97 kg, 154.94 cm) db 11:04 Pain Scale: Adult db MDM: 11:03 Medical Screening Exam initiated [facility] 15:16 Differential Diagnosis altered mental status, sepsis, flu. Data reviewed: vital signs, [facility] nurses notes, lab test result(s), EKG, radiologic studies, plain films. Consideration of Admission/Observation Escalation of care including admission/observation considered. I considered the following discharge prescriptions or medication management in the emergency department Medications were administered in the Emergency Department. See MAR. Independent interpretation of the following test(s) in the Emergency Department EKG: See my EKG interpretation above. Test considered but Not performed: MRI: no mri. Historians other than the Patient: Daughter/Son: daughter well informed. Care significantly affected by the following chronic conditions: Diabetes, Hypertension, Cancer, Chronic Kidney Disease, lymphoma, high chlesterol. Counseling: I had a detailed discussion with the patient and/or guardian regarding the historical points, exam findings, and any diagnostic results supporting the discharge/admit diagnosis, lab results, radiology results, the need for outpatient follow up, for definitive care, a family practitioner. 08/01 11:03 Order name: Basic Metabolic Panel; Complete Time: 13:35 [facility] 08/01 11:03 Order name: CBC with Diff; Complete Time: 13:35 [facility] 08/01 11:03 Order name: LFT's; Complete Time: 13:35 [facility] 08/01 11:03 Order name: Magnesium; Complete Time: 13:35 [facility] 08/01 11:03 Order name: NT PRO-BNP; Complete Time: 13:35 [facility] 08/01 11:03 Order name: PT-INR; Complete Time: 13:35 [facility] 08/01 11:03 Order name: Troponin HS; Complete Time: 13:35 [facility] 08/01 11:03 Order name: Urinalysis w/ reflexes; Complete Time: 15:10 [facility] 08/01 11:03 Order name: Lipase; Complete Time: 13:35 [facility] 08/01 12:38 Order name: Manual Differential; Complete Time: 13:35 EDMS 08/01 11:03 Order name: XRAY Chest (1 view); Complete Time: 13:35 [facility] 08/01 11:03 Order name: EKG; Complete Time: 11:04 [facility] 08/01 11:03 Order name: Cardiac monitoring; Complete Time: 12:52 [facility] 08/01 11:03 Order name: EKG - Nurse/Tech; Complete Time: 12:52 [facility] 08/01 11:03 Order name: IV Saline Lock; Complete Time: 12:52 [facility] 08/01 11:03 Order name: Labs collected and sent; Complete Time: 12:52 [facility] 08/01 11:03 Order name: O2 Per Protocol; Complete Time: 12:52 [facility] 08/01 11:03 Order name: O2 Sat Monitoring; Complete Time: 12:52 [facility] EC:15 Rate is 94 beats/min. Rhythm is regular. QRS [place] is Normal. PA interval is normal. QRS alivia interval is normal. QT interval is normal. No Q waves. T waves are Normal. No ST changes noted. Clinical impression: Normal ECG and No evidence of ischemia. Interpreted by me. Reviewed by me. Administered Medications: 11:20 Drug: NS 0.9% IV 1000 ml IV at 1 bolus Per protocol; to be given as a bolus over 60 rs5 minutes Route: IV; Rate: 1 bolus; Site: Port-a-cath; 12:17 Follow up: Response: No adverse reaction; IV Status: Completed infusion; IV Intake: rs5 1000ml 14:00 Drug: NS 0.9% IV 1000 ml IV at 1000 ml once; to be given as a bolus over 60 minutes rs5 Route: IV; Rate: 1000 ml; Site: Port-a-cath; 15:01 Follow up: Response: No adverse reaction; IV Status: Completed infusion rs5 Disposition Summary: 08/01/24 15:18 Discharge Ordered Notes: Location: Home alivia Problem: new alivia Symptoms: have improved alivia Condition: Stable alivia Diagnosis - Weakness alivia - Dehydration alivia Followup: alivia - With: Private Physician - When: 2 - 3 days - Reason: Recheck today's complaints, Continuance of care, Re-evaluation by your physician Discharge Instructions: - Discharge Summary Sheet alivia - Dehydration, Elderly alivia - Weakness alivia - Fatigue alivia - Weakness, [id number] alivia - Rehydration, Elderly alivia - Dehydration, Elderly, [id number] alivia - Deconditioning alivia Forms: - Medication Reconciliation Form alivia - Antibiotic Education alivia - Prescription Opioid Use alivia - Patient Portal Instructions alivia - Leadership Thank You Letter alivia Prescriptions: - ondansetron 4 mg Oral Tablet,disintegrating - take 1 tablet ORAL route every 8 hours for 5 days prn nausea; 20 tablet; alivia Refills: 0, Product Selection Permitted Signatures: Dispatcher [employer] EDCayden Fuchs MD MD cha Benton, Danielle, RN RN db Navin Ruffin RN RN rs5
[2024-08-01 20:34] VITALS: TEMP 98.7
[2024-08-01 20:37] VITALS: BP 107/70; O2SAT 99
--- NOTE | 2024-08-02 14:15 | EKG ---
Test Date: 2024-08-01 Test Time: 12:16:44 [employer]: GRIS MEASUREMENT RESULTS: Intervals: Rate: 94 CT: 150 QRSD: 84 QT: 372 QTc: 465 [place]: P: 60 CT: 150 QRS: 36 T: 44 INTERPRETIVE STATEMENTS: Normal sinus rhythm Normal ECG Compared to ECG 05/24/2024 21:06:44 Sinus tachycardia no longer present Electronically Signed On 08-02-24 14:12:35 CDT by John Adkins
== END 2024-08-01 15:40 | disposition home or self-care (01) ==
LOC: ER 10:52
DX: R53.1 Weakness (principal); E86.0 Dehydration; C85.90 Non-Hodgkin lymphoma, unspecified, unspecified site
CPT/HCPCS: 96361; 93005; 85025; 81001; 80048; 36415; 83735; 85610; 80076; 84484; 83690; 83880; 71045; 96360; 99284; J7030 ×2

== ENCOUNTER 2024-08-11 15:43 | Emergency (ER) | payer OTHER ==
[2024-08-11] MEDS ORDERED: NA CHLORIDE 0.9% 1,000 ML ONE (15:56)
[2024-08-11] MEDS ORDERED: ONDANSETRON 4 MG/2 ML VIAL ONE (15:56)
[2024-08-11] MEDS ORDERED: HYDROMORPHONE HCL 1 MG/ML INJ ONE (15:56)
[2024-08-11 16:45] LABS: Absolute Lymphocytes (CBC) 0.2 K/uL (0.7-4.9); Absolute Monocytes 1.5 K/uL (0.1-1.3); Absolute Neutrophil 11.7 K/uL (1.8-8.0); Basophils % 0.1 % (0-1.3); Eosinophils % 0.1 % (0-4.4); Hematocrit 29.4 % (36.0-45.0); Hemoglobin 9.7 g/dL (12.0-15.0); Lymphocytes % 1.3 % (15.3-44.8); MCH 27.6 pg (27.0-35.0); MCHC 32.9 g/dL (32.0-36.0); MCV 83.9 fL (80-100); MPV 6.8 fL (7.6-11.3); Monocytes % 11.5 % (3.3-12.3); Platelets 500 thou/uL (152-406); Red Cell Distribution Width 15.8 % (12.1-15.2)
[2024-08-11 16:57] LABS: ALT/SGPT 15 U/L (13-56); Albumin 1.9 g/dL (3.4-5.0); Albumin/Globulin Ratio 0.7 (1.1-1.8); Alkaline Phosphatase 72 U/L (45-117); BUN Blood Urea Nitrogen 14 mg/dL (7-18); Bicarbonate 22 mEq/L (21-32); Bilirubin Total 0.6 mg/dL (0.2-1.0); Globulin 2.7 g/dL (2.3-3.5); Glomerular Filtration Rate 101 ml/min (=/>90); Glucose Level 102 mg/dL (74-106); Protein, Total 4.6 g/dL (6.4-8.2); Sodium Level 134 mEq/L (136-145)
[2024-08-11 17:05] LABS: AST/SGOT < 10 U/L (15-37)
--- NOTE | 2024-08-11 17:38 | EDPHYS ---
Physician Documentation [facility] Name: Selina Juan Age: 74 yrs Sex: Female : 1950 Arrival Date: 08/11/2024 Time: 15:43 Bed 7 Private MD: ED Physician Srini Friedman HPI: 08/11 16:11 This 74 yrs old Female presents to ER via Wheelchair with complaints of Diarrhea. sp3 16:11 74-year-old female with history of diabetes, hypertension, stage IV lymphoma currently sp3 on chemo without any immunotherapy or radiation now presents to the ED with recurrent dehydration and profuse diarrhea post treatment. Patient was here for last week for similar symptoms. She denies any new pain or fever or any other out of routine side effect. Review of systems otherwise negative for headache, fever, neck pain, chest pain, shortness of breath, rash, or any other signs or symptoms on ROS at this time.. Historical: - Allergies: 15:46 adhesive; ll1 15:46 Flagyl; ll1 - PMHx: 15:46 diabetes mellitus; Hypercholesterolemia; Hypertensive disorder; LYMPHOMA STAGE 4; ll1 - PSHx: 15:46 MEDIPORT; ll1 - Immunization history:: Adult Immunizations up to date. - Infectious Disease History:: Denies. - Social history:: Smoking status: Patient denies any tobacco usage or history of. ROS: 16:12 Constitutional: Negative for fever, chills, and weight loss, Eyes: Negative for injury, sp3 pain, redness, and discharge, ENT: Negative for injury, pain, and discharge, Neck: Negative for injury, pain, and swelling, Cardiovascular: Negative for chest pain, palpitations, and edema, Respiratory: Negative for shortness of breath, cough, wheezing, and pleuritic chest pain, Back: Negative for injury and pain, MS/Extremity: Negative for injury and deformity, Skin: Negative for injury, rash, and discoloration, Neuro: Negative for headache, weakness, numbness, tingling, and seizure, Endocrine: Negative for neck swelling, polydipsia, polyuria, polyphagia, and marked weight changes, 16:12 All other systems are negative, Exam: 16:12 Constitutional: This is a well developed, well nourished patient who is awake, alert, sp3 and in no acute distress. Head/Face: Normocephalic, atraumatic. Eyes: Pupils equal round and reactive to light, extra-ocular motions intact. Lids and lashes normal. Conjunctiva and sclera are non-icteric and not injected. Cornea within normal limits. Periorbital areas with no swelling, redness, or edema. Neck: Trachea midline, no thyromegaly or masses palpated, and no cervical lymphadenopathy. Supple, full range of motion without nuchal rigidity, or vertebral point tenderness. No Meningismus. Chest/axilla: Normal chest wall appearance and motion. Nontender with no deformity. No lesions are appreciated. Cardiovascular: Regular rate and rhythm with a normal S1 and S2. No gallops, murmurs, or rubs. Normal PMI, no JVD. No pulse deficits. Respiratory: Lungs have equal breath sounds bilaterally, clear to auscultation and percussion. No rales, rhonchi or wheezes noted. No increased work of breathing, no retractions or nasal flaring. Back: No spinal tenderness. No costovertebral tenderness. Full range of motion. Skin: Warm, dry with normal turgor. Normal color with no rashes, no lesions, and no evidence of cellulitis. MS/ Extremity: Pulses equal, no cyanosis. Neurovascular intact. Full, normal range of motion. 16:12 Abdomen/GI: Diffuse mild tenderness to palpation without peritoneal signs, rebound or guarding., Vital Signs: 16:10 Resp 17; Temp 98.1; Weight 58.97 kg; Height 5 ft. 1 in. ; Pain 8/10; ll1 16:13 BP 143 / 65; Pulse 92; Pulse Ox 96% on R/A; ll1 18:20 BP 132 / 77; Pulse 77; Resp 16; Pulse Ox 97% on R/A; rs5 19:00 BP 137 / 74; Pulse 74; Resp 17; Pulse Ox 97% on R/A; rs5 16:10 Body Mass Index 24.56 (58.97 kg, 154.94 cm) ll1 16:10 Pain Scale: Adult ll1 MDM: 15:49 Medical Screening Exam initiated sp3 16:13 Data reviewed: vital signs, nurses notes, lab test result(s). ED course: 74-year-old sp3 female with diarrhea and dehydration as a side effect from chemotherapy. Not suspicious of primary infection or other concerning findings including sepsis or shock. Also not highly suspicious for acute coronary syndrome. Workup will include laboratory values and IV hydration coupled with ondansetron and Dilaudid for symptomatic control. Probable discharge if patient is improved and no significant findings on diagnostics.. 17:37 ED course: Patient feels better and we will safely discharge her home at this time sp3 after current IV fluids are complete.. 08/11 15:52 Order name: CBC with Diff sp3 08/11 15:52 Order name: CMP; Complete Time: 17:13 sp3 08/11 15:52 Order name: Magnesium; Complete Time: 17:13 sp3 08/11 15:52 Order name: Lactate w/ 2H reflex if indic.; Complete Time: 17:13 sp3 08/11 15:52 Order name: IV Saline Lock; Complete Time: 16:46 sp3 08/11 15:52 Order name: Labs collected and sent; Complete Time: 16:46 sp3 Administered Medications: 16:20 Drug: Ondansetron IVP 4 mg IVP once; over 2 minutes Route: IVP; Site: Port-a-cath; rs5 16:40 Follow up: Response: No adverse reaction; Nausea is decreased rs5 16:20 Drug: NS 0.9% IV 1000 ml IV at 1 bolus Per protocol; to be given as a bolus over 60 rs5 minutes Route: IV; Rate: 1 bolus; Site: Port-a-cath; 17:23 Follow up: Response: No adverse reaction; IV Status: Completed infusion; IV Intake: rs5 1000ml 16:20 Drug: HYDROmorphone IVP 1 mg IVP once Route: IVP; Site: Port-a-cath; rs5 16:41 Follow up: Response: No adverse reaction; Pain is decreased rs5 Disposition Summary: 08/11/24 17:38 Discharge Ordered Notes: Location: Home sp3 Condition: Stable sp3 Diagnosis - Nausea, vomiting, clinical dehydration, chemotherapy side effect sp3 Followup: sp3 - With: Private Physician - When: Upon discharge from the Emergency Department - Reason: Continuance of care Discharge Instructions: - Discharge Summary Sheet sp3 - Managing Chemotherapy Side Effects, Adult sp3 Forms: - Medication Reconciliation Form sp3 - Antibiotic Education sp3 - Prescription Opioid Use sp3 - Patient Portal Instructions sp3 - Leadership Thank You Letter sp3 Signatures: Dispatcher [employer] Mainor Abrams, RN RN ll1 Srini Friedman MD MD sp3 Navin Ruffin RN RN rs5
--- NOTE | 2024-08-11 17:38 | ER ---
Nurse's Notes [facility] Name: Selina Juan Age: 74 yrs Sex: Female : 1950 Arrival Date: 08/11/2024 Time: 15:43 Bed 7 Private MD: Diagnosis: Nausea, vomiting, clinical dehydration, chemotherapy side effect Presentation: 08/11 15:54 Chief complaint: Patient states: Diarrhea for 4 days with chills. Coronavirus screen: ll1 Client denies travel out of the [place] in the last 14 days. diarrhea, fatigue, Client presents with at least one sign or symptom that may indicate coronavirus-19. Standard/surgical mask placed on the client. Ebola Screen: Patient denies travel to an Ebola-affected area in the 21 days before illness onset. Initial Sepsis Screen: Does the patient meet any 2 criteria? No. Patient's initial sepsis screen is negative. Does the patient have a suspected source of infection? No. Patient's initial sepsis screen is negative. Risk Assessment: Do you want to hurt yourself or someone else? Patient reports no desire to harm self or others. 15:54 [facility] Acuity: TALISHA 3 ll1 16:10 Onset of symptoms was August 08, 2024. 1 Triage Assessment: 15:56 General: Appears uncomfortable, Behavior is calm, cooperative, appropriate for age. ll1 Pain: Denies pain. GI: Reports diarrhea, nausea. 15:56 General: Reports chills for. 1 Historical: - Allergies: 15:46 adhesive; ll1 15:46 Flagyl; ll1 - PMHx: 15:46 diabetes mellitus; Hypercholesterolemia; Hypertensive disorder; LYMPHOMA STAGE 4; ll1 - PSHx: 15:46 MEDIPORT; ll1 - Immunization history:: Adult Immunizations up to date. - Infectious Disease History:: Denies. - Social history:: Smoking status: Patient denies any tobacco usage or history of. Screenin:47 [facility] ED Fall Risk Assessment (Adult) History of falling in the last 3 months, rs5 including since admission No falls in past 3 months (0 pts) Confusion or Disorientation No (0 pts) Intoxicated or Sedated No (0 pts) Impaired Gait Yes (1 pt) Mobility Assist Device Used Yes (1 pt) Altered Elimination No (0 pt) Score/Fall Risk Level 0 - 2 = Low Risk Oriented to surroundings, Maintained a safe environment. Abuse screen: Denies threats or abuse. Nutritional screening: No deficits noted. Tuberculosis screening: No symptoms or risk factors identified. Assessment: 15:47 General: Appears in no apparent distress. uncomfortable, Behavior is calm, cooperative. rs5 15:47 Neuro: Level of Consciousness is awake, alert, obeys commands, Oriented to person, rs5 place, time, situation. Cardiovascular: Patient's skin is warm and dry. Respiratory: Airway is patent Respiratory effort is even, unlabored, Respiratory pattern is regular, symmetrical. GI: Abdomen is round non-distended, Abd is soft and non tender X 4 quads. Reports diarrhea. : No signs and/or symptoms were reported regarding the genitourinary system. EENT: No signs and/or symptoms were reported regarding the EENT system. Derm: Skin is intact, Skin is pink, warm \T\ dry. Musculoskeletal: Range of motion: intact in all extremities. 16:57 Reassessment: Patient and/or family updated on plan of care and expected duration. Pain rs5 level reassessed. Patient is alert, oriented x 3, equal unlabored respirations, skin warm/dry/pink. 18:01 Reassessment: Patient and/or family updated on plan of care and expected duration. Pain rs5 level reassessed. Patient is alert, oriented x 3, equal unlabored respirations, skin warm/dry/pink. 18:58 Reassessment: Patient and/or family updated on plan of care and expected duration. Pain rs5 level reassessed. Patient is alert, oriented x 3, equal unlabored respirations, skin warm/dry/pink. Vital Signs: 16:10 Resp 17; Temp 98.1; Weight 58.97 kg; Height 5 ft. 1 in. ; Pain 8/10; ll1 16:13 BP 143 / 65; Pulse 92; Pulse Ox 96% on R/A; ll1 18:20 BP 132 / 77; Pulse 77; Resp 16; Pulse Ox 97% on R/A; rs5 19:00 BP 137 / 74; Pulse 74; Resp 17; Pulse Ox 97% on R/A; rs5 16:10 Body Mass Index 24.56 (58.97 kg, 154.94 cm) ll1 16:10 Pain Scale: Adult ll1 ED Course: 15:44 Patient arrived in ED. ra3 15:46 Arm band placed on Patient placed in an exam room, on a stretcher. ll1 15:47 Srini Friedman MD is Attending Physician. sp3 15:47 Patient has correct armband on for positive identification. Bed in low position. Call rs5 light in reach. Side rails up X2. 15:47 No provider procedures requiring assistance completed. rs5 15:49 Srini Friedman MD is Attending Physician. sp3 15:54 Triage completed. ll1 16:00 Inserted port to right upper chest accessed using aseptic technique. rs5 16:03 Kirsten Cabrera, RN is Primary Nurse. me1 16:09 Navin Ruffin, LAXMI is Primary Nurse. rs5 17:38 Srini Friedman MD is Referral Physician. sp3 19:00 IV discontinued, intact, bleeding controlled, No redness/swelling at site. Pressure rs5 dressing applied. Administered Medications: 16:20 Drug: Ondansetron IVP 4 mg IVP once; over 2 minutes Route: IVP; Site: Port-a-cath; rs5 16:40 Follow up: Response: No adverse reaction; Nausea is decreased rs5 16:20 Drug: NS 0.9% IV 1000 ml IV at 1 bolus Per protocol; to be given as a bolus over 60 rs5 minutes Route: IV; Rate: 1 bolus; Site: Port-a-cath; 17:23 Follow up: Response: No adverse reaction; IV Status: Completed infusion; IV Intake: rs5 1000ml 16:20 Drug: HYDROmorphone IVP 1 mg IVP once Route: IVP; Site: Port-a-cath; rs5 16:41 Follow up: Response: No adverse reaction; Pain is decreased rs5 Medication: 17:01 VIS not applicable for this client. rs5 Intake: 17:23 IV: 1000ml; Total: 1000ml. rs5 Outcome: 17:38 Discharge ordered by . sp3 19:01 Discharged to home ambulatory, rs5 19:01 Discharged to home rs5 19:01 Condition: stable 19:01 Discharge instructions given to patient, family, Instructed on discharge instructions, follow up and referral plans. Demonstrated understanding of instructions, follow-up care, 19:04 Patient left the ED. rs5 Signatures: Mainor Martinez RN RN ll1 Srini Friedman MD MD sp3 Navin Ruffin RN RN rs5 Kirsten Cabrera RN RN me1 Ashley Yu ra3 Corrections: (The following items were deleted from the chart) 16:11 15:54 Chief complaint: Patient states: Diarrhea ll1 ll1 19:29 15:47 GI: Abdomen is round non-distended, Abd is soft and non tender X 4 quads. rs5 rs5
[2024-08-11] MEDS ORDERED: HEPARIN 500 UNIT/5 ML SYR IV ONE (18:46)
[2024-08-11 19:07] VITALS: TEMP 98.1
[2024-08-11 19:08] VITALS: BP 143/65; O2SAT 96
[2024-08-11 20:08] LABS: Blood Morphology Comment NOT SEEN (NOT SEEN); Platelet Estimate ADEQ; White Blood Cell Scan OK (OK)
== END 2024-08-11 19:04 | disposition home or self-care (01) ==
LOC: ER 15:43
DX: E86.0 Dehydration (principal); T45.1X5A Adverse effect of antineoplastic and immunosuppressive drugs, initial encounter; C85.90 Non-Hodgkin lymphoma, unspecified, unspecified site; E11.9 Type 2 diabetes mellitus without complications; I10 Essential (primary) hypertension
CPT/HCPCS: 96361; 85025; 36415; 83735; 83605; 80053; 96375; 96374; 99284; J1171; J1642; J2405; J7030

== ENCOUNTER 2024-08-30 14:13 | Inpatient (IN) | payer OTHER ==
[2024-08-30] MEDS ORDERED: NA CHLORIDE 0.9% 1,000 ML ONE ×3 (15:03→17:52)
[2024-08-30 15:18] LABS: Absolute Eosinophils 0.1 K/uL (0-0.5); Absolute Lymphocytes (CBC) 0.1 K/uL (0.7-4.9); Absolute Monocytes 0.5 K/uL (0.1-1.3); Absolute Neutrophil 2.4 K/uL (1.8-8.0); Basophils % 1.1 % (0-1.3); Eosinophils % 2.3 % (0-4.4); Hematocrit 25.8 % (36.0-45.0); Hemoglobin 8.8 g/dL (12.0-15.0); Lymphocytes % 4.6 % (15.3-44.8); MCH 28.3 pg (27.0-35.0); MCHC 33.9 g/dL (32.0-36.0); MCV 83.5 fL (80-100); MPV 8.6 fL (7.6-11.3); Monocytes % 15.4 % (3.3-12.3); Neutrophils % 76.6 % (41.7-73.7); Nucleated Red Blood Cells % 0.2 % (0-0); Platelets 175 thou/uL (152-406); Red Cell Distribution Width 19.1 % (12.1-15.2)
[2024-08-30 15:34] LABS: PT Prothrombin Time 15.7 SECONDS (9.4-12.5); PTT, Activated Partial Thromb 27.4 SECONDS (24.3-36.9); Protime INR 1.42
[2024-08-30 15:35] LABS: ALT/SGPT < 14 U/L (13-56); AST/SGOT < 10 U/L (15-37); Albumin 2.2 g/dL (3.4-5.0); Albumin/Globulin Ratio 0.8 (1.1-1.8); Alkaline Phosphatase 66 U/L (45-117); Anion Gap 10.7 mEq/L (5.0-15.0); BUN Blood Urea Nitrogen 13 mg/dL (7-18); Bicarbonate 23 mEq/L (21-32); Globulin 2.9 g/dL (2.3-3.5); Glomerular Filtration Rate 93 ml/min (=/>90); Glucose Level 104 mg/dL (74-106); NT PRO-BNP 317 pg/mL (<125); Potassium 2.7 mEq/L (3.5-5.1); Protein, Total 5.1 g/dL (6.4-8.2); Sodium Level 129 mEq/L (136-145); Troponin High Sensitivity 6.6 pg/mL (<58.9)
[2024-08-30 16:18] LABS: Specific Gravity 1.012 (1.005-1.030); Sqamous Epithelial <5 /HPF (None Seen); Urine Bacteria <20 /HPF (<20); Urine Bilirubin NEGATIVE (Negative); Urine Blood Negative (Negative); Urine Clarity Turbid (Clear); Urine Color Yellow (Yellow); Urine Crystals Unidentified Few /HPF (None Seen); Urine Culture Reflex Order REFLEXED; Urine Glucose NEGATIVE (Negative); Urine Ketones NEGATIVE (Negative); Urine Microscopic Reflex YN ORDER UMIC; Urine Mucus Slight /HPF (None Seen); Urine Nitrite NEGATIVE (Negative); Urine Protein TRACE (Negative); Urine RBC <5 /HPF (None Seen); Urine Urobilinogen 1+ (Normal); Urine WBC Clump Rare /HPF (None Seen); Urine Yeast (Budding) Trace /HPF (None Seen); Urine pH 6.5 (5.0-7.0)
[2024-08-30] MEDS ORDERED: KCL 20 MEQ/100 mL IVPB 100 ML IV ONE (16:42)
[2024-08-30] MEDS ORDERED: CEFTRIAXONE 1000 MG/VIAL ONE (16:42)
--- NOTE | 2024-08-30 16:43 | RAD REPORT ---
EXAM: CT brain without contrast HISTORY: Confusion/alteration of consciousness COMPARISON: None TECHNIQUE: Multiple contiguous axial images were obtained and a CT of the brain without contrast.. Sagittal and coronal reconstruction performed. Automated exposure control, adjustment of the mA and/or kV according to patient size, and/or iterative reconstruction. Unless otherwise specified, incidental f indings do not require dedicated imaging follow-up FINDINGS: An intracranial bleed is not seen Ventricles are normal caliber No extra-axial fluid collection noted No significant hypodensity within the brain No fluid within the visualized sinuses or mastoids noted. IMPRESSION: No acute intracranial abnormality noted. If the patient's symptoms persist MRI of the brain would be recommended.
--- NOTE | 2024-08-30 16:54 | RAD REPORT ---
EXAMINATION: CT ABDOMEN AND PELVIS WITH CONTRAST CLINICAL INDICATION: Abdominal pain TECHNIQUE: CT abdomen and pelvis was performed, after the administration of 100 cc Isovue-300.. Sagit lisa and coronal reconstructions were obtained. One or more of the following dose reduction techniques were used: Automated exposure control, adjustment of the mA and kV according to patient si ze, and iterative reconstruction. Unless otherwise specified, incidental findings do not require dedicated imaging follow-up. [id number]. Oral contrast was not given which limits evaluation of bowel and appendix. COMPARISON: May 2024 FINDINGS: Liver, spleen, pancreas, adrenals and kidneys appear unremarkable No evidence of diverticulitis. Marked thickening wall of the entire colon. Post surgical changes involve the small bowel. Postsurgical changes lumbar spine with prominent spondylosis. Hysterectomy. No adnexal mass : IMPRESSION: Marked thickening wall of the entire colon compatible with a pancolitis
[2024-08-30 16:55] LABS: Band Neutrophils 39 % (0-1); Differential Total Cells Count 100; Eosinophils 2 % (0-3); Lymphocytes 9 % (15-42); Monocytes 15 % (0-10); Segmented Neutrophils 29 % (40-80)
--- NOTE | 2024-08-30 16:55 | RAD REPORT ---
Procedure: Chest Single View HISTORY: Hypotension COMPARISON: July 2024 FINDINGS: The lungs appear clear of acute infiltrate. No significant pleural effusion noted. The heart is normal size. Central venous catheter in place IMPRESSION: No acute abnormality is displayed.
[2024-08-30 16:56] LABS: Anisocytosis 1+; Blood Morphology Comment NOTED (NOT SEEN); Dohle Bodies PRESENT; Metamyelocytes 4 % (0-0); Platelet Estimate ADEQ; Polychromasia SLIGHT; Toxic Granulation PRESENT
[2024-08-30] MEDS ORDERED: PIPERACIL/TAZO 3.375 GM VIAL IV ONE (17:53)
[2024-08-30] MEDS ORDERED: NA CHLORIDE 0.9% 100 ML ONE (17:53)
--- NOTE | 2024-08-30 18:10 | ER ---
Nurse's Notes [facility] Name: Selina Juan Age: 74 yrs Sex: Female : 1950 Arrival Date: 08/30/2024 Time: 14:13 Bed 7 Private MD: Diagnosis: Severe sepsis without septic shock;Colitis;Hypokalemia;Altered mental status, unspecified Presentation: 08/30 14:25 Chief complaint: Patient states: Patient presents in the ED c/o hypotension and altered os mental status for the past 3 days. Coronavirus screen: Vaccine status: Patient reports receiving the 2nd dose of the covid vaccine. At this time, the client does not indicate any symptoms associated with coronavirus-19. Ebola Screen: No symptoms or risks identified at this time. Initial Sepsis Screen: Does the patient meet any 2 criteria? Systolic BP < 90 mmHg. Mean Arterial Pressure (MAP) < 65. Altered Mental Status. HR > 90 bpm. Yes Does the patient have a suspected source of infection?. Risk Assessment: Do you want to hurt yourself or someone else? Patient reports no desire to harm self or others. Onset of symptoms was August 27, 2024. 14:25 Method Of Arrival: Wheelchair os 14:25 Acuity: TALISHA 2 os Historical: - Allergies: 14:29 adhesive; os 14:29 Flagyl; os - PMHx: 14:29 diabetes mellitus; Hypercholesterolemia; Hypertensive disorder; LYMPHOMA STAGE 4; os - PSHx: 14:29 MEDIPORT; os - Immunization history:: Adult Immunizations up to date. - Infectious Disease History:: Denies. - Social history:: Smoking status: Patient denies any tobacco usage or history of. Screenin:45 [facility] ED Fall Risk Assessment (Adult) History of falling in the last 3 months, aa5 including since admission No falls in past 3 months (0 pts) Confusion or Disorientation No (0 pts) Intoxicated or Sedated No (0 pts) Impaired Gait Yes (1 pt) Mobility Assist Device Used Yes (1 pt) Altered Elimination Yes (1 pt) Score/Fall Risk Level 3 or more points = High Risk Oriented to surroundings, Maintained a safe environment, Educated pt \T\ family on fall prevention, incl call for assistance when getting out of bed, Assessed \T\ reinforced patient's understanding of fall precautions, Hourly rounding (assess needs \T\ fall precautionary measures) done. Abuse screen: Denies threats or abuse. Nutritional screening: No deficits noted. Tuberculosis screening: No symptoms or risk factors identified. Assessment: 14:45 General: Appears comfortable, Behavior is calm, cooperative. Pain: Denies pain. Neuro: aa5 Level of Consciousness is awake, alert, obeys commands, Oriented to person, place, time, situation, Appropriate for age Moves all extremities. Cardiovascular: Heart tones S1 S2 present Patient's skin is warm and dry. Rhythm is sinus rhythm. Respiratory: Airway is patent Respiratory effort is even, unlabored, Respiratory pattern is regular, symmetrical, Denies cough, shortness of breath. GI: Abdomen is round non-distended, Bowel sounds present X 4 quads. Abd is soft and non tender X 4 quads. : No signs and/or symptoms were reported regarding the genitourinary system. EENT: No signs and/or symptoms were reported regarding the EENT system. Derm: Skin is pink, warm \T\ dry. Musculoskeletal: Range of motion: intact in all extremities. 15:30 Reassessment: Patient is alert, oriented x 3, equal unlabored respirations, skin aa5 warm/dry/pink. Pt assisted to bedside commode and urine specimen collection. . 16:00 Reassessment: Patient is alert, oriented x 3, equal unlabored respirations, skin aa5 warm/dry/pink. 17:11 Reassessment: Patient is alert, oriented x 3, equal unlabored respirations, skin aa5 warm/dry/pink. 18:16 Reassessment: Patient is alert, oriented x 3, equal unlabored respirations, skin aa5 warm/dry/pink. 19:30 Reassessment: No changes from previously documented assessment. Patient is alert, dd2 oriented x 3, equal unlabored respirations, skin warm/dry/pink. Pt c/o pain 05/18. Medicated per DEC. Patient states symptoms have not improved. Vital Signs: 14:25 BP 88 / 48; Pulse 104; Resp 17; Temp 97.6; Pulse Ox 100% on R/A; Weight 56.93 kg; os 15:00 BP 100 / 55; Pulse 98; aa5 15:43 BP 105 / 44; Pulse 97; Resp 18 S; Pulse Ox 98% on R/A; aa5 16:30 BP 101 / 45; Pulse 99; Resp 16 S; Pulse Ox 100% on R/A; aa5 17:23 BP 92 / 50; Pulse 100; Resp 16 S; Pulse Ox 100% on R/A; aa5 17:41 BP 93 / 54; Pulse 102; Resp 16 S; Pulse Ox 99% on R/A; aa5 18:16 BP 112 / 58; Pulse 91; Resp 14 S; Pulse Ox 100% on R/A; aa5 19:30 BP 107 / 52; Pulse 97; Resp 16; Pulse Ox 100% on R/A; dd2 19:55 BP 106 / 65; Pulse 108; Resp 16; Temp 98.1; Pulse Ox 98% ; dd2 ED Course: 14:15 Patient arrived in ED. ec2 14:16 Cayden Johansen PA is PHCP. cp 14:16 Bassam Garrison MD is Attending Physician. cp 14:29 Triage completed. os 14:34 Susan Brooks, LAXMI is Primary Nurse. aa5 14:45 Patient has correct armband on for positive identification. Bed in low position. Call aa5 light in reach. Side rails up X2. Adult w/ patient. Client placed on continuous cardiac and pulse oximetry monitoring. NIBP monitoring applied. commercial credit head on. Pulse ox on. NIBP on. 14:53 Inserted saline lock: 20 gauge in right forearm, using aseptic technique. Flushed with aa5 10 mL NS. 14:56 Initial lab(s) drawn, by me, sent to lab. aa5 14:56 First set of blood cultures drawn by me. aa5 15:02 EKG done, by ED staff. tm3 15:15 Second set of blood cultures drawn by me. aa5 15:54 Chest Single View XRAY In Process Unspecified. EDMS 16:11 Urine collected: clean catch specimen, clear. tm3 16:25 CT Head Brain wo Cont In Process Unspecified. EDMS 16:26 CT Abd/Pelvis - IV Contrast Only In Process Unspecified. EDMS 18:07 Prince Aguayo MD is Hospitalizing Provider. cp 19:00 No provider procedures requiring assistance completed. aa5 19:00 Report given to LAXMI Cabrales and LAXMI Stevens. aa5 19:30 Awaiting bed assignment. dd2 19:30 Patient maintains SpO2 saturation greater than 95% on room air. dd2 19:30 Provided Education on: CALL LIGHT, MEDICATION/SIDE EFFECTS. Door closed. Noise dd2 minimized. Lights dimmed. Warm blanket given. Pillow given. PO fluids given. Verbal reassurance given. 20:46 Patient admitted, IV remains in place. dd2 Administered Medications: 15:00 Drug: NS 0.9% IV 1000 ml IV at 1000 ml once; to be given as a bolus over 60 minutes aa5 Route: IV; Rate: 1000 ml; Site: right forearm; 16:00 Follow up: IV Status: Completed infusion; IV Intake: 1000ml aa5 17:11 Drug: Potassium Chloride IV 20 mEq IV at calculated rate once; administer over 1-2 aa5 hours Route: IV; Rate: calculated rate; Site: right forearm; 18:16 Follow up: Response: No adverse reaction aa5 17:11 Drug: Rocephin IV 1 grams IV at calculated rate once; Given slow IV push per pharmacy aa5 instructions Route: IV; Rate: calculated rate; Site: right forearm; 17:20 Follow up: Response: No adverse reaction aa5 17:11 Drug: NS 0.9% IV 1000 ml IV at 75 ml/hr continuous Route: IV; Rate: 75 ml/hr; Site: aa5 right forearm; 19:33 Follow up: Response: No adverse reaction dd2 20:48 Follow up: IV Status: Infusion continued upon admission dd2 17:39 Drug: NS 0.9% IV 680 ml IV at 1 bolus Per protocol; to be given as a bolus over 60 aa5 minutes Route: IV; Rate: 1 bolus; Site: right forearm; 18:39 Follow up: IV Status: Completed infusion; IV Intake: 680ml aa5 17:40 CANCELLED (Physician Discretion): ns 0.9% 710 ml IV at calculated rate once; for total aa5 bolus of 30 cc/kg 18:00 Drug: Piperacillin-Tazobactam IVPB 3.375 grams IVPB once over 60 mins; (mix in NS 100 aa5 mL) Route: IVPB; Infused Over: 60 mins; Site: right forearm; 19:00 Follow up: IV Status: Completed infusion; IV Intake: 100ml aa5 19:09 CANCELLED (Physician Discretion): ativan0.5 mg IVP once cp 19:09 CANCELLED (Physician Discretion): [id number] mg IVP once cp 19:16 CANCELLED (Physician Discretion): hydromorphone1 mg IVP once cp 19:28 Drug: HYDROmorphone IVP 0.5 mg IVP once Route: IVP; Site: right forearm; dd2 19:43 Follow up: Response: No adverse reaction; Pain is decreased dd2 Medication: 15:44 VIS not applicable for this client. aa5 Intake: 16:00 IV: 1000ml; Total: 1000ml. aa5 18:39 IV: 680ml; Total: 1680ml. aa5 19:00 IV: 100ml; Total: 1780ml. aa5 Outcome: 18:09 Decision to Hospitalize by Provider. cp 20:46 Admitted to Med/surg accompanied by tech, room 205, with chart, dd2 20:46 Condition: stable 20:46 Instructed on the need for admit, 20:47 Patient left the ED. dd2 Signatures: Dispatcher [facility] EDKS Troy Sabillon tm3 Susan Brooks, RN RN aa5 Cayden Johansen PA PA cp Lionel Hernandez, RN RN os Bassam Garrison MD MD ec2 RADHA FULTON RN RN dd2 Corrections: (The following items were deleted from the chart) 19:19 14:45 [facility] ED Fall Risk Assessment (Adult) History of falling in the last 3 months, aa5 including since admission No falls in past 3 months (0 pts) Confusion or Disorientation No (0 pts) Intoxicated or Sedated No (0 pts) Impaired Gait No (0 pts) Mobility Assist Device Used No (0 pt) Altered Elimination No (0 pt) Score/Fall Risk Level 0 - 2 = Low Risk Oriented to surroundings, Maintained a safe environment, Educated pt \T\ family on fall prevention, incl call for assistance when getting out of bed, aa5
--- NOTE | 2024-08-30 18:10 | EDPHYS ---
Physician Documentation [facility] Name: Selina Juan Age: 74 yrs Sex: Female : 1950 Arrival Date: 08/30/2024 Time: 14:13 Bed 7 Private MD: ED Physician Bassam Garrison HPI: 08/30 14:45 This 74 yrs old Female presents to ER via Wheelchair with complaints of Altered Mental cp Status, LOW BP. 14:45 The patient presents with confusion. cp 14:45 Onset: The symptoms/episode began/occurred 3 day(s) ago. cp 14:45 Possible causes: uti. Associated signs and symptoms: Pertinent positives: weakness, cp Pertinent negatives: abdominal pain, chest pain, combativeness, diarrhea, headache, vomiting. Current symptoms: In the emergency department the patient's symptoms are unchanged from the initial presentation, despite home interventions. Patient's baseline: Neuro: alert and fully oriented, Motor: no deficits, Ambulation: walks without assistance, Speech: normal. Historical: - Allergies: 14:29 adhesive; os 14:29 Flagyl; os - PMHx: 14:29 diabetes mellitus; Hypercholesterolemia; Hypertensive disorder; LYMPHOMA STAGE 4; os - PSHx: 14:29 MEDIPORT; os - Immunization history:: Adult Immunizations up to date. - Infectious Disease History:: Denies. - Social history:: Smoking status: Patient denies any tobacco usage or history of. ROS: 14:50 Neuro: Positive for altered mental status, weakness, cp 14:50 Eyes: Negative for injury, pain, redness, and discharge, cp 14:50 Constitutional: Negative for fever, 14:50 Cardiovascular: Negative for chest pain, 14:50 Respiratory: Negative for cough, shortness of breath, wheezing, 14:50 Abdomen/GI: Negative for abdominal pain, vomiting, diarrhea, constipation, 14:50 Skin: Negative for rash, 14:50 All other systems are negative, Exam: 14:55 Constitutional: The patient appears in no acute distress, alert, awake, cp non-diaphoretic, non-toxic, well developed, well nourished, 14:55 Head/Face: Normocephalic, atraumatic. cp 14:55 Eyes: Periorbital structures: appear normal, Pupils: equal, round, and reactive to light and accomodation, Extraocular movements: intact throughout, Conjunctiva: normal, no exudate, no injection, Sclera: no appreciated abnormality, Lids and lashes: appear normal, bilaterally, 14:55 ENT: External ear(s): are unremarkable, Nose: is normal, Mouth: Lips: moist, Oral mucosa: pink and intact, moist, Posterior pharynx: Airway: no evidence of obstruction, patent, 14:55 Chest/axilla: Inspection: normal, 14:55 Cardiovascular: Rate: tachycardic, Rhythm: regular, Edema: is not appreciated, JVD: is not appreciated, 14:55 Respiratory: the patient does not display signs of respiratory distress, Respirations: normal, no use of accessory muscles, no retractions, labored breathing, is not present, Breath sounds: are clear throughout, no decreased breath sounds, no stridor, no wheezing, 14:55 Abdomen/GI: Inspection: abdomen appears normal, Bowel sounds: active, all quadrants, Palpation: abdomen is soft and non-tender, in all quadrants, 14:55 Skin: cellulitis, is not appreciated, no rash present. 14:55 Neuro: Orientation: to person, place, situation, Mentation: able to follow commands, Motor: moves all fours, no focal deficits, Sensation: no obvious gross deficits, 15:03 ECG was reviewed by the Attending Physician. cp Vital Signs: 14:25 BP 88 / 48; Pulse 104; Resp 17; Temp 97.6; Pulse Ox 100% on R/A; Weight 56.93 kg; os 15:00 BP 100 / 55; Pulse 98; aa5 15:43 BP 105 / 44; Pulse 97; Resp 18 S; Pulse Ox 98% on R/A; aa5 16:30 BP 101 / 45; Pulse 99; Resp 16 S; Pulse Ox 100% on R/A; aa5 17:23 BP 92 / 50; Pulse 100; Resp 16 S; Pulse Ox 100% on R/A; aa5 17:41 BP 93 / 54; Pulse 102; Resp 16 S; Pulse Ox 99% on R/A; aa5 18:16 BP 112 / 58; Pulse 91; Resp 14 S; Pulse Ox 100% on R/A; aa5 19:30 BP 107 / 52; Pulse 97; Resp 16; Pulse Ox 100% on R/A; dd2 19:55 BP 106 / 65; Pulse 108; Resp 16; Temp 98.1; Pulse Ox 98% ; dd2 MDM: 17:15 Data reviewed: vital signs, nurses notes, lab test result(s), EKG, radiologic studies, cp CT scan, plain films, and as a result, I will admit patient. 17:15 Differential Diagnosis: electrolyte abnormality, pneumonia, sepsis, UTI, volume cp depletion. I considered the following discharge prescriptions or medication management in the emergency department Medications were administered in the Emergency Department. See MAR. Independent interpretation of the following test(s) in the Emergency Department EKG: See my EKG interpretation above. Historians other than the Patient: Daughter/Son: daughter provides HPI. Care significantly affected by the following chronic conditions: Diabetes, Hypertension, Cancer. Counseling: I had a detailed discussion with the patient and/or guardian regarding the historical points, exam findings, and any diagnostic results supporting the discharge/admit diagnosis, lab results, radiology results, the need for further work-up and treatment in the hospital. 18:09 Medical Screening Exam initiated 18:15 Management of patient was discussed with the following: Hospitalist: DR Aguayo will cp admit after discussion. 18:15 Post IV fluid administration reassessment for Sepsis: Client prescribed 30 mL/kg IVF. Sepsis focused reassessment complete. Heart: Regular rate/rhythm noted. Lungs: Noted to be clear bilaterally. Current vital signs reviewed: Yes. Neuro: Neurological examination improved from previous exam. Cardio: Cardiovascular examination improved from previous exam. Heart rate and blood pressure have improved. Response to treatment: the patient's symptoms have mildly improved after treatment. 08/30 14:43 Order name: Blood Culture Adult (2) 08/30 14:43 Order name: CBC with Diff; Complete Time: 17:11 08/30 15:30 Interpretation: Normal except: WBC 3.10; RBC 3.10; HGB 8.8; HCT 25.8; RDW 19.1; NYA% cp 76.6; LYM% 4.6; MN% 15.4; LYMA 0.1. 08/30 14:43 Order name: CMP; Complete Time: 16:19 08/30 16:19 Interpretation: Normal except: NA 129; K 2.7; AST < 10; TP 5.1; ALB 2.2; A/G 0.8. cp 08/30 14:43 Order name: Lactate w/ 2H reflex if indic.; Complete Time: 15:29 cp 08/30 15:30 Interpretation: Reviewed. 08/30 14:43 Order name: Protime (+inr); Complete Time: 16:19 cp 08/30 14:43 Order name: Ptt, Activated; Complete Time: 16:19 cp 08/30 14:43 Order name: Urinalysis w/ reflexes; Complete Time: 16:19 08/30 16:19 Interpretation: Normal except: UCLA Turbid; UPROT TRACE; UUROB 1+; UESTR 25; UWBC cp 10-20; BYST Trace. 08/30 14:44 Order name: Troponin High Sensitivity; Complete Time: 16:19 08/30 14:44 Order name: BNP; Complete Time: 16:19 08/30 16:21 Order name: Urine Culture EDMS 08/30 16:57 Order name: Manual Differential; Complete Time: 17:11 EDMS 08/30 17:12 Interpretation: Reviewed. 08/30 18:20 Order name: Lactate w/ 2H reflex if indic. EDMS 08/30 18:20 Order name: Magnesium EDMS 08/30 18:20 Order name: Phosphorus EDMS 08/30 18:20 Order name: T4 Free EDMS 08/30 18:20 Order name: Thyroid Stimulating Hormone EDMS 08/30 18:20 Order name: Urinalysis w/ reflexes EDMS 08/30 18:20 Order name: Basic Metabolic Panel EDMS 08/30 18:20 Order name: Basic Metabolic Panel EDMS 08/30 18:20 Order name: CBC with Automated Diff EDMS 08/30 18:20 Order name: CBC with Automated Diff EDMS 08/30 18:20 Order name: Lipid Profile EDMS 08/30 18:20 Order name: Lipid Profile EDMS 08/30 18:23 Order name: Ammonia EDMS 08/30 18:23 Order name: Procalcitonin EDMS 08/30 18:48 Order name: Stool Culture EDMS 08/30 18:51 Order name: Basic Metabolic Panel EDMS 08/30 14:43 Order name: Chest Single View XRAY; Complete Time: 17:11 08/30 14:44 Order name: CT Head Brain wo Cont; Complete Time: 17:11 08/30 14:44 Order name: CT Abd/Pelvis - IV Contrast Only 08/30 18:49 Order name: Occupational Therapy Consult [facility] 08/30 18:49 Order name: Physical Therapy Consult [facility] 08/30 14:43 Order name: Cardiac monitoring; Complete Time: 15:00 08/30 14:44 Order name: EKG - Nurse/Tech; Complete Time: 15:00 08/30 14:44 Order name: IV Saline Lock - Large Bore; Complete Time: 15:01 08/30 14:44 Order name: Labs collected and sent; Complete Time: 15:01 08/30 14:44 Order name: O2 Per Protocol; Complete Time: 15:01 08/30 14:44 Order name: O2 Sat Monitoring; Complete Time: 15:01 08/30 14:44 Order name: Vital Signs; Complete Time: 15:01 EC:03 Rate is 100 beats/min. Rhythm is regular. AK interval is normal. QRS interval is cp normal. QT interval is normal. Interpreted by me. Reviewed by me. Administered Medications: 15:00 Drug: NS 0.9% IV 1000 ml IV at 1000 ml once; to be given as a bolus over 60 minutes aa5 Route: IV; Rate: 1000 ml; Site: right forearm; 16:00 Follow up: IV Status: Completed infusion; IV Intake: 1000ml aa5 17:11 Drug: Potassium Chloride IV 20 mEq IV at calculated rate once; administer over 1-2 aa5 hours Route: IV; Rate: calculated rate; Site: right forearm; 18:16 Follow up: Response: No adverse reaction aa5 17:11 Drug: Rocephin IV 1 grams IV at calculated rate once; Given slow IV push per pharmacy aa5 instructions Route: IV; Rate: calculated rate; Site: right forearm; 17:20 Follow up: Response: No adverse reaction aa5 17:11 Drug: NS 0.9% IV 1000 ml IV at 75 ml/hr continuous Route: IV; Rate: 75 ml/hr; Site: aa5 right forearm; 19:33 Follow up: Response: No adverse reaction dd2 20:48 Follow up: IV Status: Infusion continued upon admission dd2 17:39 Drug: NS 0.9% IV 680 ml IV at 1 bolus Per protocol; to be given as a bolus over 60 aa5 minutes Route: IV; Rate: 1 bolus; Site: right forearm; 18:39 Follow up: IV Status: Completed infusion; IV Intake: 680ml aa5 17:40 CANCELLED (Physician Discretion): ns 0.9% 710 ml IV at calculated rate once; for total aa5 bolus of 30 cc/kg 18:00 Drug: Piperacillin-Tazobactam IVPB 3.375 grams IVPB once over 60 mins; (mix in NS 100 aa5 mL) Route: IVPB; Infused Over: 60 mins; Site: right forearm; 19:00 Follow up: IV Status: Completed infusion; IV Intake: 100ml aa5 19:09 CANCELLED (Physician Discretion): ativan0.5 mg IVP once cp 19:09 CANCELLED (Physician Discretion): [id number] mg IVP once cp 19:16 CANCELLED (Physician Discretion): hydromorphone1 mg IVP once cp 19:28 Drug: HYDROmorphone IVP 0.5 mg IVP once Route: IVP; Site: right forearm; dd2 19:43 Follow up: Response: No adverse reaction; Pain is decreased dd2 Disposition: 08/31 16:08 Critical Care:. cp Disposition Summary: 08/30/24 18:09 Hospitalization Ordered Notes: Hospitalization Status: Inpatient Admission cp Provider: Prince amanda Aguayo Condition: Stable cp Problem: new cp Symptoms: have improved cp Bed/Room Type: Standard cp [facility] 19:37[facility] Room Assignment: [facility](08/30/24 19:37) Diagnosis - Severe sepsis without septic shock cp - Colitis cp - Hypokalemia cp - Altered mental status, unspecified cp Forms: - Medication Reconciliation Form cp - SBAR form cp - Leadership Thank You Letter cp Critical care time excluding procedures: 16:08 Critical care time: Bedside Care: 5 minutes, Consultation: 25 minutes, Family cp Intervention: 5 minutes. Total time: 35 minutes Addendum: 09/18/2024 09:55 I was immediately available for consultation during this patient's visit. I did not e c2 personally see the patient or discuss the patient with the NICOLETTE. . Signatures: Dispatcher [employer] Susan oMon RN RN aa5 Gardenia Nascimento RN RN ss Cayden Johansen PA PA cp Ethel Vallejo RN RN vc1 Lionel Hernandez, RN RN os Bassam Garrison MD MD ec2 RADHA FULTON RN RN dd2 Corrections: (The following items were deleted from the chart) 08/30 14:44 14:44 Chest Single View+RAD.RAD.BRZ ordered. EDMS EDMS 14:44 14:44 Head Brain Wo Cont+CT.RAD.BRZ ordered. EDMS EDMS 14:44 14:44 Abdomen Pelvis W Con+CT.RAD.BRZ ordered. EDMS EDMS 15:20 14:43 Accucheck ordered. cp aa5 17:40 17:39 NS 0.9% IV 710 ml IV at calculated rate once; for total bolus of 30 cc/kg aa5 ordered. cp 19:09 19:07 Ativan IVP 0.5 mg IVP once ordered. cp cp 19:09 19:07 Ketorolac IVP 15 mg IVP once ordered. cp cp 19:16 19:09 HYDROmorphone IVP 1 mg IVP once ordered. cp cp 19:27 18:09 Telemetry/MedSurg (Inpatient) cp vc1 19:27 18:09 cp vc1 19:37 19:27 BR ER HOLD vc1 ss 19:37 19:27 ERHOLD- vc1 ss
[2024-08-30] MEDS ORDERED: SODIUM CHLORIDE 0.9% 10ML INJ IV PRN (18:26)
[2024-08-30] MEDS: PIPER TAZO 3.375 GM in NA CHLORIDE 0.9% 100 ML IV SCH (18:30)
--- NOTE | 2024-08-30 18:46 | P.HP ---
Certification for Inpatient Patient admitted to: Inpatient With expected LOS: >2 Midnights Practitioner: I am a practitioner with admitting privileges, knowledge of patient current condition, hospital course, and medical plan of care. 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 She presented to the ER accompanied by daughter. Patient has been having altered mental status for the past 3 days. Her altered mental status is manifested by confusion and irritability. Patient also states she has been having abdominal pain accompanied by diarrhea. Her diarrhea is nonbloody. She has nausea but no vomiting. She denies fever and chills. Workup in the ER reveals evidence of pancolitis on CAT scan. Patient is also hypokalemic and hyponatremic with a potassium level of 2.7 and a sodium of 129 respectively. During my evaluation, patient was awake and answered questions appropriately. Daughter was at bedside. Patient is DNR. She received potassium replacement an d 1 dose of ceftriaxone and Zosyn in the ER. Allergies metronidazole [From Flagyl] Allergy (Verified 07/16/24 12:04) Anaphylaxis adhesive Adverse Reaction (Verified 07/16/24 12:04) Rash Home Medications: Duloxetine HCl 90 mg PO DAILY 07/16/24 Fluconazole 200 mg PO DAILY 07/16/24 Lansoprazole 30 mg PO BEDTIME 07/16/24 Losartan/Hydrochlorothiazide [Losartan-Hctz 100-25 mg Tab] 1 tab PO DAILY 07/16/24 Metformin ER [Glucophage ER*] 500 mg PO BEDTIME 07/16/24 Rosuvastatin [Crestor*] 20 mg PO BEDTIME 07/16/24 Valacyclovir [Valtrex*] 500 mg PO BID 07/16/24 Physical Examination - Physical Exam General: Other (Frail) HEENT: Atraumatic, Normocephalic Respiratory: Clear to auscultation bilaterally, Normal air movement Cardiovascular: No edema, Normal pulses, Regular rate/rhythm, Normal S1 S2, O ther (Chemo-Port in place), Systolic murmur Gastrointestinal: Soft and benign, Non-distended Integumentary: Other (Dry skin. Pale) Neurological: Normal speech - Studies Laboratory Data (last 24 hrs) 08/30/24 08/30/24 08/30/24 15:15 14:56 14:56 WBC 3.10 L Hgb 8.8 L Hct 25.8 L Plt Count 175 PT 15.7 H INR 1.42 APTT 27.4 Sodium 129 L Potassium 2.7 L BUN 13 Creatinine 0.64 Glucose 104 Total Bilirubin 1.0 AST < 10 L ALT < 14 Alkaline Phosphatase 66 Assessment and Plan - Problems (Diagnosis) (1) Pancolitis Current Visit: Yes Status: Acute (2) Lymphoma of small bowel Current Visit: Yes Status: Acute (3) Hyponatremia Current Visit: Yes Status: Acute (4) Hypokalemia Current Visit: Yes Status: Acute - Plan Assessment This is a 74-year-old female with a past medical history of small bowel lymphoma status post resection and currently on chemotherapy. She is being admitted for pancolitis after she presented with altered mental status. She has a negative CT head. Patient also has several electrolyte abnormalities. Pancolitis Small bowel lymphoma Hypokalemia Hyponatremia Generalized weakness Plan: Will admit inpatient with telemetry Continue supportive care with IV fluid infusion Will also continue patient on Zosyn Follow blood culture ordered by ER Will also add stool cultures Antiemetics and GI prophylaxis Will obtain PT and OT before discharge Patient is DNR - Advance Directives Does patient have a Living Will: No Does patient have a Durable POA for Healthcare: No
[2024-08-30] MEDS: NA CHLORIDE 0.9% 1,000 ML IV SCH (19:00)
[2024-08-30] MEDS ORDERED: HYDROMORPHONE HCL 0.5 MG/0.5 ML INJ ONE (19:21)
[2024-08-30 21:16] VITALS: BMI 23.7
[2024-08-30] MEDS: PANTOPRAZOLE 40 MG INJ IVP SCH (22:32)
[2024-08-30 23:00] LABS: Anion Gap 9.2 mEq/L (5.0-15.0); Magnesium 1.6 mg/dL (1.6-2.4); Phosphorus 2.2 mg/dL (2.5-4.9); Potassium 3.2 mEq/L (3.5-5.1); Thyroid Stimulating Hormone 1.16 uIU/mL (0.358-3.740)
[2024-08-30] MEDS: MAGNESIUM SULFATE 1 gm IVPB 1 GM/100 ML BAG IV ONE (23:32)
[2024-08-31] MEDS: POTASSIUM PHOS IN 0.9 % NACL 15 MMOL/250 ML BAG IV ONE (01:17)
[2024-08-31 06:11] LABS: Absolute Eosinophils 0.1 K/uL (0-0.5); Absolute Lymphocytes (CBC) 0.1 K/uL (0.7-4.9); Absolute Monocytes 0.9 K/uL (0.1-1.3); Absolute Neutrophil 4.5 K/uL (1.8-8.0); Basophils % 0.8 % (0-1.3); Eosinophils % 1.4 % (0-4.4); Hematocrit 19.7 % (36.0-45.0); Hemoglobin 6.6 g/dL (12.0-15.0); Lymphocytes % 2.4 % (15.3-44.8); MCHC 33.3 g/dL (32.0-36.0); MCV 84.2 fL (80-100); MPV 8.2 fL (7.6-11.3); Monocytes % 16.4 % (3.3-12.3); Nucleated Red Blood Cells % 0.1 % (0-0); Platelets 183 thou/uL (152-406); RBC Red Blood Cell Count 2.34 M/uL (3.86-4.86); Red Cell Distribution Width 18.8 % (12.1-15.2)
[2024-08-31 06:26] LABS: Anion Gap 10.2 mEq/L (5.0-15.0); Potassium 3.2 mEq/L (3.5-5.1)
[2024-08-31] MEDS ORDERED: NA CHLORIDE 0.9% 250 ML IV SCH (07:00)
[2024-08-31] MEDS ORDERED: POTASSIUM CL 40 MEQ in NA CHLORIDE 0.9% 500 ML IV SCH (08:00)
[2024-08-31 08:05] LABS: Anisocytosis 1+; Band Neutrophils 25 % (0-1); Blood Morphology Comment NOTED (NOT SEEN); Differential Total Cells Count 100; Eosinophils 1 % (0-3); Hypochromasia 1+; Lymphocytes 3 % (15-42); Metamyelocytes 2 % (0-0); Monocytes 17 % (0-10); Myelocytes 2 % (0-0); Platelet Estimate ADEQ; Segmented Neutrophils 49 % (40-80); Toxic Granulation 1+
[2024-08-31 08:06] LABS: Polychromasia SLIGHT
[2024-08-31] MEDS: ENOXAPARIN 40 MG/0.4 ML SQ SCH (08:27)
[2024-08-31] MEDS: KCL 20 MEQ/100 mL IVPB 100 ML IV SCH (08:27)
--- NOTE | 2024-08-31 10:25 | P.PN ---
Subjective Date of Service: 08/31/24 Chief Complaint: altered mental status, colitis Subjective: No new changes Patient complaining of back pain, watery diarrhea 1 or 2 times since admission, small amount,, nausea but no vomiting, anorexia. She reports that she has a same problem each time she received chemotherapy for her cancer. Review of Systems Other: Consitutional; fever(-), chills (-), rigor(-), night sweat(-), unintentional weight loss(-) HEENT; epistaxis (-), otorrhea (-), otalgia (-) Respiratory; shortness of breath (-), wheezing (-), cough (-), sputum (-), pleuritic chest pain (-) Cardiovascular; chest pain (-), peripheral edema (-), paroxysmal nocturnal dyspnea (-), orthopnea (-) Gastrointestinal; nausea (+), vomiting (-), abdominal pain (+), diarrhea (+), constipation (-), melena (-), hematochezia (-) Urinary; urinary frequency (-), dysuria (-), urgency (-), flank pain (-), gross hematuria (-) Skin; rash (-), pruritus (-) 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 General: Fragile, chronic ill-looking, in no apparent distress,. HEENT: Normocephalic, atraumatic,. Neck: Supple, without JVD or goiter or thyroid mass. Respiratory: Normal breathing effort, clear to auscultation bilaterally, no crackles no wheezing or rhonchi. Cardiovascular: Regular rate and rhythm, S1, S2 normal, no murmur no gallop. Gastrointestinal: Surgical scar on abdomen , increased bowel sounds, nondistended, nontender, No ascites, , No masses, no hepatosplenomegaly. Musculoskeletal: No clubbing, No peripheral edema. Integumentary: No rashes. Lymphatics: No axilla or cervical lymphadenopathy. Neurology; alert awake oriented x3, no focal neurologic deficit - Studies Laboratory Data (last 24 hrs) 08/30/24 08/30/24 08/30/24 15:15 14:56 14:56 WBC 3.10 L Hgb 8.8 L Hct 25.8 L Plt Count 175 PT 15.7 H INR 1.42 APTT 27.4 Sodium 129 L Potassium 2.7 L BUN 13 Creatinine 0.64 Glucose 104 Total Bilirubin 1.0 AST < 10 L ALT < 14 Alkaline Phosphatase 66 Assessment And Plan - Plan This is a 74-year-old female with a past medical history of small bowel lymphoma status post resection and currently on chemotherapy. Her last chemotherapy was a week ago. She was admitted through ER for pancolitis after she presented with confusion, irritation, abdominal pain and diarrhea. #1 chemotherapy-induced acute diarrhea with pancolitis by CT scan #2 history of GI lymphoma on ongoing chemotherapy #3 anemia secondary to dilutional anemia and bone marrow suppression due to chemotherapy Borderline hypotension, remained afebrile, CT of the abdomen on admission personally reviewed, mucosal and submucosal edema of entire small bowel, no sign of toxic megacolon, absolute neutrophil was 2400, no neutropenia today but repeat hemoglobin 6.6 from 8.8, no clinical bleeding, will give 1 unit packed RBCs transfusion, check C. difficile toxin, continue IV fluid, pain medication and empiric antibiotic with Zosyn. Patient wants to leave after transfusion because she cannot tolerate hospital food. I informed the patient she needs to sign AMA paper. Patient is DNR
[2024-08-31] MEDS: ACETAMINOPHEN 500 MG TAB PO ONE (10:43)
[2024-08-31] MEDS: DIPHENHYDRAMINE 50 MG/ML VIAL IV ONE (10:44)
[2024-08-31] MEDS: MORPHINE 2 MG/ML SYR IV PRN (11:01)
[2024-08-31] MEDS: ONDANSETRON 4 MG/2 ML VIAL IV PRN (11:03)
[2024-08-31] MEDS: POTASSIUM CL SA 10 MEQ TAB PO ONE ×2 (13:16→20:10)
[2024-08-31 15:59] LABS: Hematocrit 23.8 % (36.0-45.0); Hemoglobin 7.9 g/dL (12.0-15.0)
[2024-09-01 04:07] LABS: C.diff Antigen/Toxin Ag pos : Tox pos (NEG : NEG); CDIFF INTERNAL NEG CONTROL White Background (WHITE BKGD); STOOL CONSISTENCY Formed/Solid (soft)
[2024-09-01] MEDS: LOPERAMIDE HCL 2 MG CAPSULE PO ONE (04:32)
[2024-09-01] MEDS: VANCOMYCIN HCL 125 MG CAPSULE PO SCH (09:04)
[2024-09-01] MEDS: DULOXETINE 30 MG CAP PO SCH (10:30)
--- NOTE | 2024-09-01 11:53 | P.PN ---
Subjective Date of Service: 09/01/24 Chief Complaint: altered mental status, colitis Subjective: Worsening She is complaining of multiple watery diarrhea overnight, epigastric cramping pain but no nausea and vomiting fever chills. She denied any urinary symptoms such as dysuria or urinary frequency or flank pain. Patient states that she goes to [facility] in [place]. Review of Systems Other: Consitutional; fever(-), chills (-), rigor(-), night sweat(-), unintentional weight loss(-) HEENT; epistaxis (-), otorrhea (-), otalgia (-) Respiratory; shortness of breath (-), wheezing (-), cough (-), sputum (-), pleuritic chest pain (-) Cardiovascular; chest pain (-), peripheral edema (-), paroxysmal nocturnal dyspnea (-), orthopnea (-) Gastrointestinal; nausea (-), vomiting (-), abdominal pain (+), diarrhea (+), constipation (-), melena (-), hematochezia (-) Urinary; urinary frequency (-), dysuria (-), urgency (-), flank pain (-), gross hematuria (-) Skin; rash (-), pruritus (-) TRACK GREASER; headache (-), paresthesia (-), numbness (-), paralysis (-), tremor (-), ataxia (-), dysphagia (-), dysarthria (-), diplopia (-) Physical Examination - Vital Signs Temperature: 98.5 F Blood Pressure: 126/58 Pulse: 82 Respirations: 18 Pulse Ox (%): 98 - Physical Exam Other Physical/Emotional Findings: - Physical Exam. General: Fragile, chronic ill-looking, in no apparent distress,. HEENT: Normocephalic, atraumatic,. Nec k: Supple, without JVD or goiter or thyroid mass. Respiratory: Normal breathing effort, clear to auscultation bilaterally, no crackles no wheezing or rhonchi. Cardiovascular: Regular rate and rhythm, S1, S2 normal, no murmur no gallop. Gastrointestinal: Surgical scar on abdomen , increased bowel sounds, nondistended, nontender, No ascites, , No masses, no hepatosplenomegaly. Musculoskeletal: No clubbing, No peripheral edema, port a catheter in place in the chest wall. Integumentary: No rashes. Lymphatics: No axilla or cervical lymphadenopathy. Neurology; alert awake oriented x3, no focal neurologic deficit - Studies Microbiology Data (last 24 hrs): 08/30/24 16:00 Clean Catch Urine Moody Count - Final BETWEEN 10,000 & 100,000 CFU/ML 08/30/24 16:00 Clean Catch Urine - Final Escherichia Coli Esbl Assessment And Plan - Plan This is a 74-year-old female with a past medical history of small bowel lymphoma status post resection and currently on chemotherapy. Her last chemotherapy was a week ago. She was admitted through ER for pancolitis after she presented with confusion, irritation, abdominal pain and diarrhea. #1 chemotherapy-induced acute diarrhea with pancolitis by CT scan CT of the abdomen on admission personally reviewed, mucosal and submucosal edema of entire small bowel, no sign of toxic megacolon, #2 nonsevere C. difficile colitis #3 history of GI lymphoma on ongoing chemotherapy #4 anemia secondary to dilutional anemia and bone marrow suppression due to chemotherapy #5 asymptomatic bacteriuria with ESBL E. coli C. difficile toxin came back positive, hemoglobin up to 7.9 from 6.6 after 1 unit packed cell transfusion, remained afebrile, borderline hypotension, absolute neutrophil was 2400, no neutropenia, no clinical bleeding, I will start oral vancomycin 125 mg 4 times daily, Imodium as needed, continue IV fluid, pain medication. I will discontinue empiric antibiotics because patient diarrhea most likely due to a combination of C. difficile colitis and chemotherapy induced and she is not neutropenic. She does not need any treatment for asymptomatic bacteriuria. I will request a follow-up CBC, and electrolytes tomorrow morning. Patient 's condition and treatment plan was discussed during rounding with her daughter on the phone. Patient is DNR
[2024-09-01] MEDS: VALACYCLOVIR 500 MG TAB PO SCH (13:51)
[2024-09-01] MEDS: FLUCONAZOLE 100 MG TAB PO SCH (13:51)
[2024-09-02] MEDS: LOPERAMIDE HCL 2 MG CAPSULE PO PRN (03:54)
[2024-09-02 05:46] LABS: Absolute Basophils 0.1 K/uL (0-0.5); Absolute Eosinophils 0.1 K/uL (0-0.5); Absolute Lymphocytes (CBC) 0.4 K/uL (0.7-4.9); Absolute Monocytes 0.9 K/uL (0.1-1.3); Absolute Neutrophil 13.7 K/uL (1.8-8.0); Basophils % 0.7 % (0-1.3); Eosinophils % 0.5 % (0-4.4); Hematocrit 27.9 % (36.0-45.0); Lymphocytes % 2.5 % (15.3-44.8); MCH 27.9 pg (27.0-35.0); MCHC 32.4 g/dL (32.0-36.0); MCV 86.1 fL (80-100); MPV 8.1 fL (7.6-11.3); Neutrophils % 90.3 % (41.7-73.7); Platelets 322 thou/uL (152-406); RBC Red Blood Cell Count 3.24 M/uL (3.86-4.86); Red Cell Distribution Width 18.5 % (12.1-15.2)
[2024-09-02 05:48] LABS: Magnesium 1.7 mg/dL (1.6-2.4); Phosphorus 1.9 mg/dL (2.5-4.9)
--- NOTE | 2024-09-02 06:02 | P.PN ---
Date of Service: 09/02/24 Subjective Reports 3 loose stools overnight, currently being treated for C. difficile, Review of Systems 10 point review of system negative unless listed in HPI Physical Examination - Vital Signs reviewed - Physical Exam - Physical Exam General: Other (Frail) HEENT: Atraumatic, Normocephalic Respiratory: Clear to auscultation bilaterally, Normal air movement Cardiovascular: No edema, Normal pulses, Regular rate/rhythm, Normal S1 S2, Gastrointestinal: Abdominal tenderness, Integumentary: Other (Dry skin. Pale) Neurological: Normal speech Assessment And Plan - Plan C. difficile diarrhea Severe on admission with hypotension improved Hypotension with tachycardia on admission IV fluids, treated with Zosyn, transition to p.o. vancomycin, noted on probiotic Contact precaution E. coli ESBL of the urine IV meropenem Blood cultures no growth chemotherapy-induced acute diarrhea with pancolitis by CT scan Imodium, prior to C. difficile diagnosis history of GI lymphoma on ongoing chemotherapy Follow-up with oncology after discharge anemia secondary to dilutional anemia and bone marrow suppression due to chemotherapy Iron infusion Trend H&H DNR DVT Diet Disposition Home independent Time with patient 30-minute
[2024-09-02] MEDS: PIPER TAZO 3.375 GM in NA CHLORIDE 0.9% 100 ML IV SCH (06:14)
[2024-09-02 08:19] LABS: Band Neutrophils 2 % (0-1); Differential Total Cells Count 100; Lymphocytes 5 % (15-42); Metamyelocytes 2 % (0-0); Monocytes 13 % (0-10); Segmented Neutrophils 75 % (40-80)
[2024-09-02 08:20] LABS: Anisocytosis 1+; Blood Morphology Comment NOTED (NOT SEEN); Dohle Bodies PRESENT; Myelocytes 2 % (0-0); Platelet Estimate ADEQ; Platelets Clumped MANY; Toxic Granulation PRESENT
[2024-09-02] MEDS: LACTOBACILLUS/ACIDOPHILUS TAB PO SCH (09:52)
[2024-09-02 11:15] LABS: Absolute Basophils 0.1 K/uL (0-0.5); Absolute Eosinophils 0.1 K/uL (0-0.5); Absolute Lymphocytes (CBC) 0.3 K/uL (0.7-4.9); Absolute Monocytes 1.1 K/uL (0.1-1.3); Absolute Neutrophil 12.7 K/uL (1.8-8.0); Basophils % 0.8 % (0-1.3); Eosinophils % 0.4 % (0-4.4); Hematocrit 26.3 % (36.0-45.0); Hemoglobin 8.5 g/dL (12.0-15.0); MCH 27.9 pg (27.0-35.0); MCHC 32.4 g/dL (32.0-36.0); MCV 86.1 fL (80-100); MPV 7.8 fL (7.6-11.3); Monocytes % 7.8 % (3.3-12.3); Platelets 311 thou/uL (152-406); RBC Red Blood Cell Count 3.06 M/uL (3.86-4.86); Red Cell Distribution Width 18.9 % (12.1-15.2)
--- NOTE | 2024-09-02 12:04 | EKG ---
Test Date: 2024-08-30 Test Time: 14:54:36 Replanting Machine Crewman: GABBY MEASUREMENT RESULTS: Intervals: Rate: 100 TN: 138 QRSD: 76 QT: 404 QTc: 521 [place]: P: 67 TN: 138 QRS: 42 T: 74 INTERPRETIVE STATEMENTS: Normal sinus rhythm Nonspecific ST abnormality Prolonged QT Abnormal ECG Compared to ECG 08/01/2024 12:16:44 ST (T wave) deviation now present Prolonged QT interval now present Electronically Signed On 09-02-24 12:01:34 [employer] by John Adkins
[2024-09-02] MEDS: Meropenem 1,000 MG in NA CHLORIDE 0.9% 100 ML IV SCH (21:46)
[2024-09-02 23:15] VITALS: O2SAT 97
[2024-09-03 05:20] LABS: Absolute Basophils 0.1 K/uL (0-0.5); Absolute Eosinophils 0.1 K/uL (0-0.5); Absolute Lymphocytes (CBC) 0.4 K/uL (0.7-4.9); Absolute Monocytes 1.3 K/uL (0.1-1.3); Absolute Neutrophil 14.7 K/uL (1.8-8.0); Basophils % 0.7 % (0-1.3); Eosinophils % 0.4 % (0-4.4); Hematocrit 25.1 % (36.0-45.0); Hemoglobin 8.3 g/dL (12.0-15.0); Lymphocytes % 2.2 % (15.3-44.8); MCH 28.1 pg (27.0-35.0); MCHC 33.3 g/dL (32.0-36.0); MCV 84.5 fL (80-100); MPV 7.9 fL (7.6-11.3); Monocytes % 7.7 % (3.3-12.3); Nucleated Red Blood Cells % 0.1 % (0-0); Platelets 350 thou/uL (152-406); RBC Red Blood Cell Count 2.97 M/uL (3.86-4.86); Red Cell Distribution Width 18.5 % (12.1-15.2)
[2024-09-03 05:41] LABS: Albumin 1.8 g/dL (3.4-5.0); Anion Gap 9.3 mEq/L (5.0-15.0); Phosphorus 2.9 mg/dL (2.5-4.9); Potassium 4.3 mEq/L (3.5-5.1)
--- NOTE | 2024-09-03 07:35 | P.PN ---
Date of Service: 09/03/24 Subjective Tolerated breakfast, reports 1 loose stool overnight Review of Systems 10 point review of system negative unless listed in HPI Physical Examination - Vital Signs reviewed - Physical Exam General: Alert oriented x 3, no acute distress HEENT: Atraumatic, Normocephalic Respiratory: Clear to auscultation bilaterally, Normal air movement Cardiovascular: No edema, Normal pulses, Regular rate/rhythm, Normal S1 S2, Gastrointestinal: Abdominal tenderness, Musculoskeletal moderate generalized weakness Integumentary: Other (Dry skin. Pale) Neurological: Normal speech Assessment And Plan - Plan C. difficile diarrhea Severe on admission with hypotension improved Hypotension with tachycardia on admission IV fluids, treated with Zosyn, transition to p.o. vancomycin, noted on probiotic, Questran Contact precaution E. coli ESBL of the urine IV meropenem Blood cultures no growth Afebrile, leukocytosis, ESBL of the urine, started on meropenem Plan for PICC line for Invanz for IV antibiotics for ESBL urine after Infectious disease consulted for leukocytosis chemotherapy-induced acute diarrhea with pancolitis by CT scan Imodium, prior to C. 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
[2024-09-03] MEDS: MAGNESIUM SULFATE 1 gm IVPB 1 GM/100 ML BAG IV ONE ×2 (08:00→11:45)
--- NOTE | 2024-09-03 10:08 | EKG ---
Test Date: 2024-08-30 Test Time: 14:56:10 Branch Service Representative: GABBY MEASUREMENT RESULTS: Intervals: Rate: 100 WI: 144 QRSD: 82 QT: 338 QTc: 436 [place]: P: 69 WI: 144 QRS: 37 T: 61 INTERPRETIVE STATEMENTS: Normal sinus rhythm Nonspecific ST and T wave abnormality Abnormal ECG Compared to ECG 08/30/2024 14:54:36 Prolonged QT interval no longer present ST (T wave) deviation still present Electronically Signed On 09-03-24 10:06:57 [employer] by John Adkins
[2024-09-03] MEDS: Magnesium Sulfate 2gm IVPB 2 G/50 ML BAG IV ONE (12:37)
--- NOTE | 2024-09-03 12:59 | P.DS ---
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 She presented to the ER accompanied by daughter. Patient has been having altered mental status for the past 3 days. Her altered mental status is manifested by confusion and irritability. Patient also states she has been having abdominal pain accompanied by diarrhea. Her diarrhea is nonbloody. She has nausea but no vomiting. She denies fever and chills. Workup in the ER reveals evidence of pancolitis on CAT scan. Patient is also hypokalemic and hyponatremic with a potassium level of 2.7 and a sodium of 129 respectively. During my evaluation, patient was awake and answered questions appropriately. Daughter was at bedside. Patient is DNR. She received potassium replacement and 1 dose of ceftriaxone and Zosyn in the ER. She was seen by infectious disease, was noted to have a UTI, C. difficile, plan to discharge home on p.o. antibiotics for C. difficile, IV antibiotics for UTI, tolerating diet, stable to discharge follow-up with oncology after discharge - Physical Exam General: Other (Frail) HEENT: Atraumatic, Normocephalic Respiratory: Clear to auscultation bilaterally, Normal air movement Cardiovascular: No edema, Normal pulses, Regular rate/rhythm, Normal S1 S2, Gastrointestinal: Abdominal tenderness, Integumentary: Other (Dry skin. 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 She presented to the ER accompanied by daughter. Patient has been having altered mental status for the past 3 days. Her altered mental status is manifested by confusion and irritability. Patient also states she has been having abdominal pain accompanied by diarrhea. Her diarrhea is nonbloody. She has nausea but no vomiting. She denies fever and chills. Workup in the ER reveals evidence of pancolitis on CAT scan. Patient is also hypokalemic and hyponatremic with a potassium level of 2.7 and a sodium of 129 treated with electrolyte replacement. Patient is DNR. She received potassium replacement and 1 dose of ceftriaxone and Zosyn in the ER. She was seen by infectious disease, was noted to have a UTI, C. difficile, plan to discharge home on p.o. antibiotics for C. difficile, IV antibiotics for UTI, tolerating diet, stable to discharge follow-up with oncology after discharge with [facility] for IV antibiotics. Discharge medications Questran, probiotics, Vancomycin p.o. daily for total of 14 days Invanz 1 g IV daily for 5 days, Assessment C. difficile teated with po vancomyacin 4 times daily for total of 14 days E. coli ESBL of the urine plan to discharge home on Invanz 1 g daily for 5 days Chemotherapy-induced vs c diff, with acute diarrhea with pancolitis History of GI lymphoma with ongoing chemotherapy Anemia secondary to bone marrow suppression due to chemotherapy potassium level of 2.7 and a sodium of 129 treated with electrolyte replacement Continue home medicines as previously prescribed GOAL: Clear understanding of disease process INSTRUCTIONS: Physician Discharge Instructions: -Follow-up with oncology after -Follow-up with PCP in 1 to 2 weeks -Please call Dr. Dickinson at [phone] if any questions regarding hospital stay -Please call nursing station at [phone] if any nursing or medication questions -Return to the emergency room if symptoms worsen Diet: ADA, low sodium Activity: Fall precautions Vital Signs/Physical Exam: Temp Pulse Resp BP Pulse Ox 97.6 F 94 H 18 144/69 H 98 09/03/24 12:00 09/03/24 12:00 09/03/24 12:00 09/03/24 12:00 09/03/24 12:00 Other Physical/Emotional Findings: - Physical Exam. General: Fragile, chronic ill-looking, in no apparent distress,. HEENT: Normocephalic, atraumatic,. Neck: Supple, without JVD or goiter or thyroid mass. Respiratory: Normal breathing effort, clear to auscultation bilaterally, no crackles no wheezing or rhonchi. Cardiovascular: Regular rate and rhythm, S1, S2 normal, no murmur no gallop. Gastrointestinal: Surgical scar on abdomen , increased bowel sounds, nondistended, nontender, No ascites, , No masses, no hepatosplenomegaly. Musculoskeletal: No clubbing, No peripheral edema, port a catheter in place in the chest wall. Integumentary: No rashes. Lymphatics: No axilla or cervical lymphadenopathy. Neurology; alert awake oriented x3, no focal neurologic deficit Laboratory Data at Discharge: WBC 16.60 thou/uL (4.3-10.9) H 09/03/24 04:39 Hgb 8.3 g/dL (12.0-15.0) L 09/03/24 04:39 Hct 25.1 % (36.0-45.0) L 09/03/24 04:39 Plt Count 350 thou/uL (152-406) 09/03/24 04:39 PT 15.7 SECONDS (9.4-12.5) H 08/30/24 15:15 INR 1.42 08/30/24 15:15 APTT 27.4 SECONDS (24.3-36.9) 08/30/24 15:15 Sodium 135 mEq/L (136-145) L 09/03/24 04:39 Potassium 4.3 mEq/L (3.5-5.1) 09/03/24 04:39 BUN 6 mg/dL (7-18) L 09/03/24 04:39 Creatinine 0.48 mg/dL (0.55-1.02) L 09/03/24 04:39 Glucose 102 mg/dL (74-106) 09/03/24 04:39 Phosphorus 2.9 mg/dL (2.5-4.9) 09/03/24 04:39 Magnesium 1.7 mg/dL (1.6-2.4) 09/03/24 04:39 Total Bilirubin 1.0 mg/dL (0.2-1.0) 08/30/24 14:56 AST < 10 U/L (15-37) L 08/30/24 14:56 ALT < 14 U/L (13-56) 08/30/24 14:56 Alkaline Phosphatase 66 U/L (45-117) 08/30/24 14:56 Triglycerides 161 mg/dL (<150) H 08/31/24 05:53 Cholesterol 93 mg/dL (<200) 08/31/24 05:53 HDL Cholesterol 11 mg/dL (40-60) L 08/31/24 05:53 Cholesterol/HDL Ratio 8.45 08/31/24 05:53 Home Medications: Duloxetine HCl 90 mg PO DAILY 10/08/24 Fluconazole 200 mg PO DAILY 07/16/24 Valacyclovir [Valtrex*] 500 mg PO DAILY 07/16/24 Acidophilus/Bifido Longum [Lactobacillus Capsule] 16 mg PO BID 30 Days #60 cap 09/04/24 Cholestyramine/Asp [Questran Light*] 4 gm PO BIDWM 30 Days #60 packet 09/04/24 Loperamide [Imodium*] 2 mg PO Q4H PRN #0 cap 09/04/24 Valacyclovir [Valtrex*] 500 mg PO DAILY tab 09/04/24 Vancomycin HCl 125 mg PO QID 7 Days #28 cap 09/04/24 New Medications: Acidophilus/Bifido Longum [Lactobacillus Capsule] 16 mg PO BID 30 Days #60 cap Cholestyramine/Asp [Questran Light*] 4 gm PO BIDWM 30 Days #60 packet Vancomycin HCl 125 mg PO QID 7 Days #28 cap Physician Discharge Instructions: 74-year-old female with a 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 She presented to the ER accompanied by daughter. Patient has been having altered mental status for the past 3 days. Her altered mental status is manifested by confusion and irritability. Patient also states she has been having abdominal pain accompanied by diarrhea. Her diarrhea is nonbloody. She has nausea but no vomiting. She denies fever and chills. Workup in the ER reveals evidence of pancolitis on CAT scan. Patient is also hypokalemic and hyponatremic with a potassium level of 2.7 and a sodium of 129 respectively. During my evaluation, patient was awake and answered questions appropriately. Daughter was at bedside. Patient is DNR. She received potassium replacement and 1 dose of ceftriaxone and Zosyn in the ER. She was seen by infectious disease, was noted to have a UTI, C. difficile, plan to discharge home on p.o. antibiotics for C. difficile, IV antibiotics for UTI, tolerating diet, stable to discharge follow-up with oncology after discharge Discharge medications As needed Questran for thickening stools,, , (while on antibiotic) probiotics,- Vancomycin p.o. daily for total of 14 days Invanz 1 g IV daily for 4 days, Assessment C. difficile 4 times daily for total of 14 days E. coli ESBL of the urine plan to discharge home on Invanz 1 g daily for 5 days Chemotherapy-induced acute diarrhea with pancolitis History of GI lymphoma with ongoing chemotherapy Anemia secondary to bone marrow suppression due to chemotherapy Continue home medicines as previously prescribed GOAL: Clear understanding of disease process INSTRUCTIONS: Physician Discharge Instructions: -Follow-up with oncology after -Follow-up with PCP in 1 to 2 weeks -Please call Dr. Dickinson at [phone] if any questions regarding hospital stay -Please call nursing station at [phone] if any nursing or medication questions -Return to the emergency room if symptoms worsen Diet: ADA, low sodium Activity: Fall precautions Followup: Frances Vázquze MD [Primary Care Provider] - 1-2 Weeks Time spent managing pt's care (in minutes): 45
[2024-09-03] MEDS: CHOLESTYRAMINE/ASP 4 GM/PKT PO SCH (14:17)
--- NOTE | 2024-09-03 16:41 | CON ---
History Of Present Illness: This is a 74-year-old female was consulted to evaluate for worsening WBC and urinary tract infection secondary to ESBL. The patient was found to have E coli ESBL in urine c ultures from 08/30, also her C diff toxin has been positive. The patient was brought in to hospital on August 30 with significant past medical history of small bowel lymphoma, status post bowel res ection and currently getting chemotherapy with a Port-A-Cath placed in the right chest wall. The pat annamaria was brought to the emergency room because of altered mental status for 3 days. Patient also hav ing abdominal discomfort and diarrhea. Currently, patient is being treated with meropenem and p.o. v ancomycin. The patient also getting Valtrex, probiotics, fluconazole. Past Medical History: As per HPI. Social History: Nonsmoker, nondrinker. Family History: Noncontributory. Medication: Meropenem, fluconazole, probiotic, Imodium, Valtrex, vancomycin p.o. See MARs for other medication. Allergies: TO METRONIDAZOLE AND ADHESIVE. Review of Systems: A 10-point review was performed. Physical Examination: General: This is a 74-year-old female, sitting in bed, daughter by the bedside, not in any acute car diopulmonary distress. Vital Signs: Temperature 98, pulse 91, respirations 18, blood pressure 149/73. HEENT: Unremarkable. Neck: Supple. Lungs: Basal crackles. Heart: S1, S2. Regular. Abdomen: Soft. Bowel sounds hyperactive. Extremities: No edema. Laboratory Data: Shows WBC 16.6, hemoglobin 8.3, platelets are 350. Chemistry shows BUN of 6, creat inine 0.4. Analysis shows WBC of 10 to 20. Micro data shows urine cultures being positive for E coli . Blood cultures negative. CT abdomen and pelvis done on 08/30 marked thickening wall of the entire colon compatible with pancolitis and C diff antigen and toxin are positive from 09/01. Assessment And Plan: Leukocytosis in a 74-year-old female with history of small bowel lymphoma statu s post resection and currently being treated with vancomycin p.o. and probiotics. We will recommend to add Questran and consider starting Dificid for 10 days if not improved on current regimen. Merope nem for urinary tract infection, extended-spectrum beta-lactamase, will be continued or can be switch ed to Invanz if the patient is going home for 7 days to complete total course of 7 days. Leukocytosi s most likely secondary to pancolitis versus urinary tract infection. Monitor CBC and BMP if the pat ient is going home. Continue supportive care and hydration. The patient was also told that if she g oes home, then she needs to be aware of possible transmission of this bacteria to people with low imm une system will stay away during the weekend from family members and friends who have is madhavi with low immune system. We will follow the patient closely. Thank you Dr. Dickinson for consult. NF/ARAMISL Voice ID: [id number] Report ID: [id number]
[2024-09-04 05:07] LABS: Absolute Basophils 0.1 K/uL (0-0.5); Absolute Eosinophils 0.1 K/uL (0-0.5); Absolute Lymphocytes (CBC) 0.3 K/uL (0.7-4.9); Absolute Neutrophil 10.1 K/uL (1.8-8.0); Basophils % 0.9 % (0-1.3); Eosinophils % 0.6 % (0-4.4); Hematocrit 22.7 % (36.0-45.0); Hemoglobin 7.6 g/dL (12.0-15.0); Lymphocytes % 2.4 % (15.3-44.8); MCH 28.1 pg (27.0-35.0); MCHC 33.3 g/dL (32.0-36.0); MCV 84.4 fL (80-100); MPV 7.4 fL (7.6-11.3); Monocytes % 8.7 % (3.3-12.3); Nucleated Red Blood Cells % 0.1 % (0-0); Platelets 394 thou/uL (152-406); RBC Red Blood Cell Count 2.69 M/uL (3.86-4.86); Red Cell Distribution Width 19.1 % (12.1-15.2)
[2024-09-04 05:12] LABS: Neutrophils % 87.4 % (41.7-73.7)
[2024-09-04 05:27] LABS: Albumin 1.7 g/dL (3.4-5.0); Magnesium 2.1 mg/dL (1.6-2.4)
[2024-09-04] MEDS ORDERED: ERTAPENEM SODIUM 1 GM VIAL IVPB SCH (06:00)
[2024-09-04] MEDS: ERTAPENEM NA 1 GM in NA CHLORIDE 0.9% 100 ML IVPB SCH (07:38)
[2024-09-04 12:22] VITALS: BP 135/59; TEMP 98.1
--- NOTE | 2024-09-04 14:23 | PN ---
Subjective: Patient is being discharged today. No new acute event. Chart reviewed. Objective: Vital Signs: Temperature 98, pulse 80, respirations 20, blood pressure 143/67. Lungs: Basal crackles. Heart: S1, S2. Regular. Abdomen: Soft. Bowel sounds present. Extremities: No edema. Laboratory Data: Shows WBC 11.5, hemoglobin 7.6, platelets 394. Assessment And Plan: Escherichia coli extended-spectrum beta-lactamase urosepsis. Continue meropene m total of 7 days. The patient will be discharged on getting IV antibiotic to complete her course. Clostridium difficile colitis with pancolitis. The patient is currently on vancomycin p.o. If not i mproved, we will recommend to start patient on Dificid. Continue probiotic and consider adding Quest ran. We will follow the patient as needed. Leukocytosis. Anemia of chronic disease. Small bowel c ancer. We will follow the patient as needed. NF/MODL Voice ID: [id number] Report ID: [id number]
== END 2024-09-04 12:40 | disposition home health service (06) | DRG 872 ==
LOC: ER 14:13 → ERHOLD 18:15 → 2ND 20:37
PROVIDERS: ADMIT Internal Medicine; ATTEND Hospitalist
PROC: 02HV33Z Insertion of Infusion Device into Superior Vena Cava, Percutaneous Approach (ICD-10-PCS; 2024-08-30)
PROC: 30233N1 Transfusion of Nonautologous Red Blood Cells into Peripheral Vein, Percutaneous Approach (ICD-10-PCS; principal; 2024-08-31)
DX: A41.51 Sepsis due to Escherichia coli [E. coli] (principal); C85.90 Non-Hodgkin lymphoma, unspecified, unspecified site; E87.1 Hypo-osmolality and hyponatremia; K52.1 Toxic gastroenteritis and colitis; Z16.12 Extended spectrum beta lactamase (ESBL) resistance; A04.72 Enterocolitis due to Clostridium difficile, not specified as recurrent; N39.0 Urinary tract infection, site not specified; R65.20 Severe sepsis without septic shock; E11.9 Type 2 diabetes mellitus without complications; E78.00 Pure hypercholesterolemia, unspecified; I10 Essential (primary) hypertension; E87.6 Hypokalemia; D64.81 Anemia due to antineoplastic chemotherapy; T45.1X5A Adverse effect of antineoplastic and immunosuppressive drugs, initial encounter; Z66 Do not resuscitate; Z88.8 Allergy status to other drugs, medicaments and biological substances; Z79.84 Long term (current) use of oral hypoglycemic drugs; Z79.899 Other long term (current) drug therapy
CPT/HCPCS: 36415; 70450; 71045; 74177; 80048; 80053; 80061; 80069; 81001; 82140; 83605; 83735; 83880; 84100; 84132; 84145; 84439; 84443; 84484; 85014; 85018; 85025; 85610; 85730; 86850; 86900; 86901; 86920; 87040; 87077; 87086; 87088; 87186; 87324; 93005; 96361; 96365; 96375; 99285; J0696; J1171; J1200; J1335; J1650; J2185; J2270; J2405; J2470; J2543; J3475; J3480; J7030; J7040; J7050; P9016; Q9967

== ENCOUNTER 2024-10-12 11:27 | Inpatient (IN) | payer OTHER ==
[2024-10-12] MEDS ORDERED: IPRATROPIUM BROM 0.5MG/2.5ML ONE (11:43)
[2024-10-12] MEDS ORDERED: NA CHLORIDE 0.9% 250 ML ONE (11:43)
[2024-10-12] MEDS ORDERED: CEFTRIAXONE 1000 MG/VIAL ONE (11:43)
[2024-10-12] MEDS ORDERED: NA CHLORIDE 0.9% 2,000 ML ONE (11:43)
[2024-10-12] MEDS ORDERED: AZITHROMYCIN 500 MG INJ IVPB ONE (11:43)
[2024-10-12] MEDS ORDERED: ALBUTEROL 2.5 MG/3 ML NEB SOL ONE (11:43)
[2024-10-12 12:11] LABS: PT Prothrombin Time 18.2 SECONDS (9.4-12.5); PTT, Activated Partial Thromb 29.4 SECONDS (24.3-36.9); Protime INR 1.65
[2024-10-12 12:12] LABS: Absolute Lymphocytes (CBC) 0.1 K/uL (0.7-4.9); Absolute Monocytes 0.4 K/uL (0.1-1.3); Absolute Neutrophil 5.7 K/uL (1.8-8.0); Basophils % 0.1 % (0-1.3); Eosinophils % 0.1 % (0-4.4); Hematocrit 24.5 % (36.0-45.0); Hemoglobin 8.1 g/dL (12.0-15.0); Lymphocytes % 1.3 % (15.3-44.8); MCH 31.3 pg (27.0-35.0); MCHC 33.1 g/dL (32.0-36.0); MCV 94.6 fL (80-100); MPV 9.3 fL (7.6-11.3); Monocytes % 6.2 % (3.3-12.3); Neutrophils % 92.3 % (41.7-73.7); Nucleated Red Blood Cells % 0.1 % (0-0); Platelets 255 thou/uL (152-406); RBC Red Blood Cell Count 2.59 M/uL (3.86-4.86); Red Cell Distribution Width 16.8 % (12.1-15.2)
[2024-10-12 12:22] LABS: Albumin/Globulin Ratio 0.6 (1.1-1.8); Alkaline Phosphatase 75 U/L (45-117); Anion Gap 9.3 mEq/L (5.0-15.0); BUN Blood Urea Nitrogen 18 mg/dL (7-18); Bicarbonate 27 mEq/L (21-32); Bilirubin Total 0.5 mg/dL (0.2-1.0); Globulin 3.4 g/dL (2.3-3.5); Glomerular Filtration Rate 97 ml/min (=/>90); Glucose Level 149 mg/dL (74-106); Potassium 3.3 mEq/L (3.5-5.1); Protein, Total 5.4 g/dL (6.4-8.2); Sodium Level 135 mEq/L (136-145)
[2024-10-12 12:27] LABS: ALT/SGPT < 14 U/L (13-56); AST/SGOT < 10 U/L (15-37)
--- NOTE | 2024-10-12 13:04 | RAD REPORT ---
EXAMINATION: ONE VIEW CHEST XR CLINICAL INDICATION: COUGH TECHNIQUE: Frontal chest projection is submitted. Examination is limited by patient positioning and t echnique. COMPARISON: 08/30/2024 FINDINGS: Bilateral pulmonary opacities are noted, similar to prior study likely related to chronic underlying changes. The heart is normal in size. No displaced fractures identified. Right-sided venous catheters tip in SVC. IMPRESSION: Stable chest since comparative study dated 08/30/2024.
[2024-10-12] MEDS ORDERED: LORazepam 2 MG/ML VIAL ONE (13:34)
[2024-10-12 13:47] LABS: Arterial Blood Carboxyhemoglob 0.8 % (0-1.5); Blood Gas Oxyhemoglobin 88.6 % (94-97); Blood Gas THB 7.4 g/dl (12-18); Blood O2 Saturation 90.9 % (92-98.5)
[2024-10-12 14:27] LABS: Band Neutrophils 55 % (0-1); Blood Morphology Comment NOTED (NOT SEEN); Differential Total Cells Count 100; Lymphocytes 8 % (15-42); Metamyelocytes 2 % (0-0); Monocytes 4 % (0-10); Myelocytes 2 % (0-0); Platelet Estimate ADEQ; Reactive Lymphocytes 11 %; Segmented Neutrophils 18 % (40-80)
[2024-10-12 14:28] LABS: Anisocytosis 1+; Teardrop Cell 1+; Toxic Granulation 2+
--- NOTE | 2024-10-12 14:57 | RAD REPORT ---
EXAMINATION: CTA CHEST PE CLINICAL INDICATION: eval for pe TECHNIQUE: This examination was performed according to an angiographic protocol with 3D post-processi ng. This involves 3D reconstructions, MIPs, volume rendered images and/or shaded surface rendering. One or more of the following dose reduction techniques were used: Automated exposure control, adjustm ent of the mA and/or kV according to patient size, and/or iterative reconstruction. Unless otherwise specified, incidental findings do not require dedicated imaging follow-up. COMPARISON: No prior exam. FINDINGS: PULMONARY ARTERIES: Normal caliber. No evidence of pulmonary emboli to the segmental level. Assessme nt limited by respiratory motion artifact. THORACIC AORTA: Normal caliber and configuration. LUNGS: Extensive chronic changes throughout the lungs. Areas of airspace opacity are present in the u pper lobes, greater on the right as well as in the right middle lobe suggestive of superimposed infiltrate/pneumonia. PLEURA: No pleural effusion. No pneumothorax. MEDIASTINUM AND LYMPH NODES: No mediastinal mass or fluid collection. Normal size mediastinal, hilar, and axillary lymph nodes. OSSEOUS STRUCTURES AND CHEST WALL: Intact. Mild thoracic dextroscoliosis. UPPER ABDOMEN: No significant abnormalities. IMPRESSION: No evidence of pulmonary emboli to the segmental level. The distal vessel assessment is limited by respiratory motion artifact. Chronic changes throughout the lungs with superimposed pneumonia/infiltrate likely present particular ly in the right upper lobe and right middle lobe.
--- NOTE | 2024-10-12 15:02 | ER ---
Nurse's Notes [facility] Name: Selina Juan Age: 74 yrs Sex: Female : 1950 Arrival Date: 10/12/2024 Time: 11:27 Bed 4 Private MD: Diagnosis: Severe sepsis without septic shock;Pneumonia, unspecified organism Presentation: 10/12 11:38 Chief complaint: Patient states: shortness of breath and cough X3 days. Pt currently cm10 being treated for URI with antibiotics and steroids. Coronavirus screen: Client denies travel out of the [place] in the last 14 days. Ebola Screen: Patient denies travel to an Ebola-affected area in the 21 days before illness onset. Initial Sepsis Screen: Does the patient meet any 2 criteria? RR > 20 per min. HR > 90 bpm. Does the patient have a suspected source of infection? No. Patient's initial sepsis screen is negative. Risk Assessment: Do you want to hurt yourself or someone else? Patient reports no desire to harm self or others. Onset of symptoms was October 09, 2023. 11:38 Method Of Arrival: Wheelchair cm10 11:38 Acuity: TALISHA 2 cm10 Triage Assessment: 11:40 General: Appears distressed, uncomfortable, Behavior is anxious. Pain: Denies pain. cm10 Neuro: No deficits noted. Level of Consciousness is awake, alert, Oriented to person, place, time, situation, Appropriate for age. Respiratory: Reports shortness of breath cough that is labored breathing since 3 days Airway is patent Respiratory effort is labored, Respiratory pattern is tachypnea Breath sounds are diminished bilaterally. Onset: The symptoms/episode began/occurred 3 days, the patient has moderate shortness of breath. Historical: - Allergies: 11:39 adhesive; cm10 11:39 Flagyl; cm10 - PMHx: 11:39 diabetes mellitus; Hypercholesterolemia; Hypertensive disorder; LYMPHOMA STAGE 4; cm10 - PSHx: 11:39 MEDIPORT; cm10 - Immunization history:: Adult Immunizations up to date. - Infectious Disease History:: Denies. - Social history:: Smoking status: unknown. Screenin:45 [facility] ED Fall Risk Assessment (Adult) History of falling in the last 3 months, cm10 including since admission No falls in past 3 months (0 pts) Confusion or Disorientation No (0 pts) Intoxicated or Sedated No (0 pts) Impaired Gait Yes (1 pt) Mobility Assist Device Used Yes (1 pt) Altered Elimination No (0 pt) Score/Fall Risk Level 0 - 2 = Low Risk Oriented to surroundings, Maintained a safe environment, Hourly rounding (assess needs \T\ fall precautionary measures) done. Abuse screen: Denies threats or abuse. Denies injuries from another. Nutritional screening: No deficits noted. Tuberculosis screening: No symptoms or risk factors identified. Assessment: 11:39 Cardiovascular: Rhythm is sinus tachycardia. cm10 13:19 Reassessment: Pt complaining of increased shortness of breath. O2 sat 81% on 3L NC. Pt cm10 placed on non-rebreather and RT paged to place pt on BiPap. Dr. Garrison at bedside speaking with pt. Pt states that in the event that intubation is needed, she would not like to be intubated. 13:19 Respiratory: Airway is patent Respiratory effort is labored, Respiratory pattern is cm10 tachypnea. 13:30 General: Pt placed on BiPap at this time.. cm10 16:22 Reassessment: Patient appears in no apparent distress at this time. Patient and/or cm10 family updated on plan of care and expected duration. Pain level reassessed. Patient states feeling better. Patient states symptoms have improved. Vital Signs: 11:38 BP 157 / 77; Pulse 116; Resp 28; Temp 98.1; Pulse Ox 74% on R/A; Weight 58.97 kg; cm10 Height 5 ft. 1 in. ; Pain 0/10; 11:39 Pulse Ox 94% ; ec2 12:15 BP 155 / 85; Pulse 117; Resp 28; Pulse Ox 100% on 8 lpm Nebulizer Mask; cm10 12:45 BP 154 / 74; Pulse 113; Resp 26; Pulse Ox 97% on 3 lpm NC; cm10 13:00 BP 163 / 94; Pulse 119; Resp 37; Pulse Ox 97% on 3 lpm NC; cm10 13:30 BP 135 / 63; Pulse 130; Resp 35; Pulse Ox 97% on BiPAP; FiO2 40 %; cm10 15:00 BP 123 / 68; Pulse 119; Resp 28; Pulse Ox 95% on BiPAP; FiO2 40 %; cm10 15:04 Pulse 122; ec2 15:30 BP 105 / 87; Pulse 119; Resp 26; Pulse Ox 95% on BiPAP; FiO2 40 %; cm10 16:00 BP 118 / 65; Pulse 117; Resp 27; Pulse Ox 96% on BiPAP; FiO2 40 %; cm10 17:00 BP 121 / 68; Pulse 115; Resp 27; Pulse Ox 97% on BiPAP; FiO2 40 %; cm10 11:38 Body Mass Index 24.56 (58.97 kg, 154.94 cm) cm10 11:38 Pain Scale: Adult cm10 ED Course: 11:28 Patient arrived in ED. ra3 11:30 Bassam Garrison MD is Attending Physician. ec2 11:38 Amanda Jugde, LAXMI is Primary Nurse. cm10 11:39 Triage completed. cm10 11:39 Arm band placed on right wrist. Patient placed in an exam room, on a stretcher, on cm10 oxygen, on pulse oximetry. 11:39 Patient has correct armband on for positive identification. Placed in gown. Bed in low cm10 position. Call light in reach. Side rails up X2. 11:39 Provided Education on: ER process and procedures. Client placed on continuous cardiac cm10 and pulse oximetry monitoring. NIBP monitoring applied. cafeteria monitor on. 11:39 Oxygen administration via nasal cannula \T\ 3L/min. cm10 11:52 Initial lab(s) drawn, by me, sent to lab. First set of blood cultures drawn by me. cm10 Inserted saline lock: 20 gauge in left antecubital area, using aseptic technique. Blood collected. Flushed with 10 mL NS. 11:58 CBC with Diff Sent. cm10 11:58 CMP Sent. cm10 11:58 Lactate w/ 2H reflex if indic. Sent. cm10 11:58 Protime (+inr) Sent. cm10 11:58 Ptt, Activated Sent. cm10 12:24 Accessed peripheral vein via ultrasound, utilizing dynamic ultrasound technique Blood cm10 collected. Clean \T\ dry. Dressing intact. Good blood return. Flushes easily. 20g right upper arm. 12:24 Second set of blood cultures drawn by me. cm10 12:58 Chest Single View XRAY In Process Unspecified. EDMS 13:33 Radiology exam delayed due to Patient not stable for CT at this time, per , RN, and mw3 RT. 14:45 CT Chest For PE Angio In Process Unspecified. EDMS 15:00 Ivan Knight MD is Hospitalizing Provider. ec2 17:29 No provider procedures requiring assistance completed. Patient admitted, IV remains in cm10 place. Administered Medications: 11:45 Drug: DuoNeb Nebulize (3:1) (2.5 mg - 0.5 mg) 3 ml Nebulizer once Route: Nebulizer; cm10 12:24 Follow up: Response: No adverse reaction cm10 12:26 Drug: NS 0.9% IV 2000 ml IV at 2 bolus Per protocol; to be given as a bolus over 60 cm10 minutes Route: IV; Rate: 2 bolus; Site: left antecubital; 13:42 Follow up: Response: No adverse reaction; IV Status: Completed infusion; IV Intake: cm10 1500ml 12:34 Drug: Rocephin IV 1 grams IV at calculated rate once; Given slow IV push per pharmacy cm10 instructions Route: IV; Rate: calculated rate; Site: right upper arm; 12:36 Follow up: Response: No adverse reaction; IV Status: Completed infusion; IV Intake: [id number] 12:37 Drug: AZITHromycin IVPB 500 mg IVPB once over 1 hrs; (mix in 250 mL NS) Route: IVPB; cm10 Infused Over: 1 hrs; Site: right upper arm; 13:42 Follow up: Response: No adverse reaction; IV Status: Completed infusion; IV Intake: cm10 250ml 13:42 Drug: Ativan IVP 0.5 mg IVP once Route: IVP; Site: left antecubital; cm10 14:22 Follow up: Response: No adverse reaction cm10 Medication: 17:30 VIS not applicable for this client. cm10 Intake: 12:36 IV: 10ml; Total: 10ml. cm10 13:42 IV: 250ml; Total: 260ml. cm10 13:42 IV: 1500ml; Total: 1760ml. cm10 Outcome: 15:01 Decision to Hospitalize by Provider. ec2 17:29 Admitted to ICU accompanied by nurse, via stretcher, room 4, with oxygen, on monitor, cm10 Report called to LAXMI Wilson 17:29 Condition: good 17:29 Instructed on the need for admit, 17:32 Patient left the ED. cm10 Addendum: 10/14/2024 14:41 Addendum: Other Bipap ordered \T\ 1319 on 10/12/24. Pt placed on Bipap by Solange RT at kb3 1330 on 10/12/24. Signatures: Dispatcher [employer] Kirsten Horne mw3 Ashley Thompson RN RN kb3 Amanda Judge RN RN cm10 Bladimir, MD TARAN Banegas ec2 Ashley Yu 3 Corrections: (The following items were deleted from the chart) 10/12 13:51 13:19 Reassessment: Pt complaining of increased shortness of breath. O2 sat 81% on 3L cm10 NC. Pt placed on non-rebreather and RT paged to place pt on BiPap. Dr. Garrison at bedside speaking with pt. Pt states that in the event that intubation is needed, she would not like to be intubated. cm10
--- NOTE | 2024-10-12 15:02 | EDPHYS ---
Physician Documentation [facility] Name: Selina Juan Age: 74 yrs Sex: Female : 1950 Arrival Date: 10/12/2024 Time: 11:27 Bed 4 Private MD: ED Physician Bassam Garrison HPI: 10/12 12:12 This 74 yrs old Female presents to ER via Wheelchair with complaints of ec2 Breathing Difficulty. 12:12 Patient with history of blood-borne cancer arrives today for cough and cold symptoms, ec2 difficulty breathing. Reports she been feeling unwell and had poor p.o. intake. Recent chemotherapy.. Historical: - Allergies: 11:39 adhesive; cm10 11:39 Flagyl; cm10 - PMHx: 11:39 diabetes mellitus; Hypercholesterolemia; Hypertensive disorder; LYMPHOMA STAGE 4; cm10 - PSHx: 11:39 MEDIPORT; cm10 - Immunization history:: Adult Immunizations up to date. - Infectious Disease History:: Denies. - Social history:: Smoking status: unknown. ROS: 12:13 Constitutional: as per hpi ec2 Exam: 12:13 Constitutional: GEN: NAD Head: atraumatic Eyes: EOMI Ears: External ears are ec2 normal. CV: Tachycardia LUNGS: Tachypnea, resting multiple lung murcia. ABD: non-distended SKIN: no evidence of rashes MSK: no evidence of trauma Vital Signs: 11:38 BP 157 / 77; Pulse 116; Resp 28; Temp 98.1; Pulse Ox 74% on R/A; Weight 58.97 kg; cm10 Height 5 ft. 1 in. ; Pain 0/10; 11:39 Pulse Ox 94% ; ec2 12:15 BP 155 / 85; Pulse 117; Resp 28; Pulse Ox 100% on 8 lpm Nebulizer Mask; cm10 12:45 BP 154 / 74; Pulse 113; Resp 26; Pulse Ox 97% on 3 lpm NC; cm10 13:00 BP 163 / 94; Pulse 119; Resp 37; Pulse Ox 97% on 3 lpm NC; cm10 13:30 BP 135 / 63; Pulse 130; Resp 35; Pulse Ox 97% on BiPAP; FiO2 40 %; cm10 15:00 BP 123 / 68; Pulse 119; Resp 28; Pulse Ox 95% on BiPAP; FiO2 40 %; cm10 15:04 Pulse 122; ec2 15:30 BP 105 / 87; Pulse 119; Resp 26; Pulse Ox 95% on BiPAP; FiO2 40 %; cm10 16:00 BP 118 / 65; Pulse 117; Resp 27; Pulse Ox 96% on BiPAP; FiO2 40 %; cm10 17:00 BP 121 / 68; Pulse 115; Resp 27; Pulse Ox 97% on BiPAP; FiO2 40 %; cm10 11:38 Body Mass Index 24.56 (58.97 kg, 154.94 cm) cm10 11:38 Pain Scale: Adult cm10 MDM: 11:33 Medical Screening Exam initiated ec2 12:13 Data reviewed: vital signs, nurses notes. ED course: Patient arrives today for ec2 respiratory complaints. Examination he is tachycardic and tachypneic individual. Will obtain a septic workup, empirically treat with antibiotics.. 12:34 ED course: EKG independently reviewed and interpreted by me, shows sinus tachycardia, ec2 rate of 119, no acute ST segment elevations, intervals are nonactionable.. 12:35 ED course: Metabolic profile shows slight hypokalemia with potassium of 3.3. Lactate ec2 within normal ranges. CBC shows slight anemia.. 13:50 ED course: Patient with increased work of breathing, will hold additional crystalloid ec2 at this time. Placed on BiPAP, will obtain CT scan of the chest to evaluate for PE as well.. 13:50 ED course: Or distress and BiPAP, I discussed possible intubation if symptoms progress, ec2 patient states that she did not want to be intubated and understood that if she underwent respiratory failure and could no longer breathe that she would .. 13:57 ED course: Family member agreed and stated that her being DNI was consistent with her ec2 wishes.. 14:17 ED course: On reassessment patient with improving respiratory status.. ec2 15:00 ED course: CT imaging shows likely superimposed pneumonia. Will admit for sepsis ec2 secondary to pneumonia. Discussed with hospitalist, pending admission.. 10/12 11:39 Order name: Blood Culture Adult (2) ec2 10/12 11:39 Order name: CBC with Diff; Complete Time: 14:59 ec2 10/12 11:39 Order name: CMP; Complete Time: 12:35 ec2 10/12 11:39 Order name: Lactate w/ 2H reflex if indic.; Complete Time: 12:35 ec2 10/12 11:39 Order name: Protime (+inr); Complete Time: 12:35 ec2 10/12 11:39 Order name: Ptt, Activated; Complete Time: 12:35 ec2 10/12 12:17 Order name: Manual Differential; Complete Time: 14:59 EDMS 10/12 13:22 Order name: BNP; Complete Time: 14:17 ec2 10/12 13:22 Order name: Influenza Screen (a \T\ B); Complete Time: 15:21 ec2 10/12 13:22 Order name: SARS RAPID; Complete Time: 15:21 ec2 10/12 13:22 Order name: ABG; Complete Time: 14:17 ec2 10/12 11:39 Order name: Chest Single View XRAY; Complete Time: 13:05 ec2 10/12 13:06 Order name: CT Chest For PE Angio; Complete Time: 14:59 ec2 10/12 11:39 Order name: EKG; Complete Time: 11:39 ec2 10/12 11:39 Order name: Accucheck; Complete Time: 13:48 ec2 10/12 11:39 Order name: Cardiac monitoring; Complete Time: 12:41 ec2 10/12 11:39 Order name: EKG - Nurse/Tech; Complete Time: 12:41 ec2 10/12 11:39 Order name: IV Saline Lock - Large Bore; Complete Time: 11:58 ec2 10/12 11:39 Order name: Labs collected and sent; Complete Time: 11:58 ec2 10/12 11:39 Order name: O2 Per Protocol; Complete Time: 11:58 ec2 10/12 11:39 Order name: O2 Sat Monitoring; Complete Time: 11:58 ec2 10/12 11:39 Order name: Vital Signs; Complete Time: 11:58 ec2 Administered Medications: 11:45 Drug: DuoNeb Nebulize (3:1) (2.5 mg - 0.5 mg) 3 ml Nebulizer once Route: Nebulizer; cm10 12:24 Follow up: Response: No adverse reaction cm10 12:26 Drug: NS 0.9% IV 2000 ml IV at 2 bolus Per protocol; to be given as a bolus over 60 cm10 minutes Route: IV; Rate: 2 bolus; Site: left antecubital; 13:42 Follow up: Response: No adverse reaction; IV Status: Completed infusion; IV Intake: cm10 1500ml 12:34 Drug: Rocephin IV 1 grams IV at calculated rate once; Given slow IV push per pharmacy cm10 instructions Route: IV; Rate: calculated rate; Site: right upper arm; 12:36 Follow up: Response: No adverse reaction; IV Status: Completed infusion; IV Intake: [id number] 12:37 Drug: AZITHromycin IVPB 500 mg IVPB once over 1 hrs; (mix in 250 mL NS) Route: IVPB; cm10 Infused Over: 1 hrs; Site: right upper arm; 13:42 Follow up: Response: No adverse reaction; IV Status: Completed infusion; IV Intake: cm10 250ml 13:42 Drug: Ativan IVP 0.5 mg IVP once Route: IVP; Site: left antecubital; cm10 14:22 Follow up: Response: No adverse reaction cm10 Disposition Summary: 10/12/24 15:01 Hospitalization Ordered Notes: Hospitalization Status: Inpatient Admission ec2 Provider: Ivan Knight ec2 Location: Intensive Care Unit ec2 Condition: Fair ec2 Problem: an acute exacerbation ec2 Symptoms: have improved ec2 Bed/Room Type: Standard ec2 Room Assignment: 4-(10/12/24 17:29) eb Diagnosis - Severe sepsis without septic shock ec2 - Pneumonia, unspecified organism ec2 Forms: - Medication Reconciliation Form ec2 - SBAR form ec2 - Leadership Thank You Letter ec2 Critical care time excluding procedures: 15:00 Critical care time: Bedside Care: 30 minutes, Consultation: 5 minutes. Total time: 35 ec2 minutes Signatures: Dispatcher [employer] EDMS Bartolo Gaytan, ENGINEERING AGENT-C ENGINEERING AGENT-Cla1 Lorena Vargas Clarissa, RN RN cm10 Bassam Garrison MD MD ec2 Corrections: (The following items were deleted from the chart) 13:22 13:22 PROBNP+C.LAB.BRZ ordered. EDMS EDMS 13:22 13:22 Influenza Screen (A \T\ B)+BA.LAB.BRZ ordered. EDMS EDMS 13:22 13:22 SARS-COV-2 Antigen Rapid+I.LAB.BRZ ordered. EDMS EDMS 13:22 13:22 Arterial Blood Gas+RC.LAB.BRZ ordered. EDMS EDMS 17:29 15:01 ec2 eb
[2024-10-12 15:20] LABS: SARS-CoV-2 Antigen CONTROL BLUE LINE VIS/BG OK; SARS-CoV-2 Antigen Rapid Res Negative (Negative)
[2024-10-12] MEDS ORDERED: ONDANSETRON 4 MG/2 ML VIAL IV PRN (16:08)
[2024-10-12] MEDS ORDERED: ACETAMINOPHEN 325 MG TABLET PO PRN (16:08)
--- NOTE | 2024-10-12 16:50 | P.HP ---
Certification for Inpatient Patient admitted to: Inpatient With expected LOS: >2 Midnights Patient will require the following post-hospital care: None Practitioner: I am a practitioner with admitting privileges, knowledge of patient current condition, hospital course, and medical plan of care. Services: Services provided to patient in accordance with Admission requirements found in Title 42 Section 412.3 of the Code of Federal Regulations Patient History Date of Service: 10/12/24 Reason for admission: Pneumonia, sepsis History of Present Illness: 74-year-old female with history of hypertension, diet-controlled diabetes, lymphoma on chemotherapy presents to the emergency department with chief complaint of shortness of breath. Daughters report that she began having symptoms about 3 days ago, she was seen at an urgent care and given steroids and breathing treatments, subsequently prescribed different steroids and breathing treatments by her PCP but not getting better. She was brought to the emergency department found to be hypoxic and placed on nasal cannula, she was still in respiratory distress despite the use of nasal cannula and for that reason she was placed on BiPAP. Her imaging was significant for a right sided pneumonia. Her last chemotherapy was on September 30, she gets it every 3 weeks and has a port in place. She is a DNI/DNR. Of note she was also treated for C. difficile and ESBL UTI in late August at our facility. She was started on IV antibiotics and placed on BiPAP, will need to be admitted to the ICU for close monitoring/continuous BiPAP. Family states that he be okay with vasopressors, no CPR or intubation. Allergies metronidazole [From Flagyl] Allergy (Verified 07/16/24 12:04) Anaphylaxis adhesive Adverse Reaction (Verified 07/16/24 12:04) Rash Home Medications: Duloxetine HCl 90 mg PO DAILY 07/16/24 Fluconazole 200 mg PO DAILY 07/16/24 Valacyclovir [Valtrex*] 500 mg PO DAILY 07/16/24 Acidophilus/Bifido Longum [Lactobacillus Capsule] 16 mg PO BID 30 Days #60 cap 09/04/24 Cholestyramine/Asp [Questran Light*] 4 gm PO BIDWM 30 Days #60 packet 09/04/24 Loperamide [Imodium*] 2 mg PO Q4H PRN #0 cap 09/04/24 Valacyclovir [Valtrex*] 500 mg PO DAILY tab 09/04/24 Vancomycin HCl 125 mg PO QID 7 Days #28 cap 09/04/24 - Past Medical/Surgical History -: small bowel lymphoma-current chemo -: Hypertension -: Diet controlled diabetes -: Bowel resection Psychosocial/ Personal History: Lives at home with daughter - Social History Alcohol use: No CD- Drugs: No Place of Residence: Home Review of Systems 10-point ROS is otherwise unremarkable Respiratory: Cough, Shortness of Breath Physical Examination - Vital Signs Pulse: 134 Pulse Ox (%): 97 - Physical Exam General: Oriented x2, Other (Drowsy) HEENT: Atraumatic Neck: Supple Respiratory: Diminished, Other (BiPAP 40% FiO2) Cardiovascular: Normal pulses, Normal S1 S2 Capillary refill: <2 Seconds Gastrointestinal: Non-distended Musculoskeletal: No contractures, No erythema Integumentary: No tenderness/swelling, No erythema Neurological: Sensation intact - Studies Laboratory Data (last 24 hrs) 10/12/24 10/12/24 10/12/24 11:52 11:52 11:52 WBC 6.20 Hgb 8.1 L Hct 24.5 L Plt Count 255 PT 18.2 H INR 1.65 APTT 29.4 Sodium 135 L Potassium 3.3 L BUN 18 Creatinine 0.54 L Glucose 149 H Total Bilirubin 0.5 AST < 10 L ALT < 14 Alkaline Phosphatase 75 Microbiology Data (last 24 hrs): 10/12/24 14:56 Nasopharnyx Influenza Type A Antigen Screen - Final 10/12/24 14:56 Nasopharnyx Influenza Type B Antigen Screen - Final Assessment and Plan - Plan Assessment: Sepsis secondary to right-sided pneumonia Acute hypoxic respiratory failure secondary to above Lymphoma on chemotherapy last dose 09/30/2024 Hypertension Diet controlled diabetes mellitus type 2 Plan: Sepsis secondary to right-sided pneumonia Acute hypoxic respiratory failure secondary to above Continue broad-spectrum antibiotics, BiPAP for respiratory support Pulmonology consult Admit to ICU for continuous BiPAP DNR/DNI, okay for vasopressor therapy As needed medications for anxiety to tolerate BiPAP Family states patient very sensitive to medications, try low doses first Lymphoma on chemotherapy last dose 09/30/2024 Family states patient has 1 more chemo in 3 weeks They also report oncology say during scans they did not see for cancer and the chemo is working Hypertension Takes or blood pressure medicine Hold during acute phase of infection/sepsis Resume when appropriate Diet controlled diabetes mellitus type 2 Monitor glucose with labs, if persistently elevated will increase to ACHS Accu- Chek and sliding scale insulin DVT PPX: Lovenox Code status:DNR Discharge Plan: Home Plan to discharge in: Greater than 2 days - Advance Directives Does patient have a Living Will: Yes Does patient have a Durable POA for Healthcare: Yes - Code Status/Comfort Care Code Status Assessed: Yes (DNR) Critical Care: No Time Spent Managing Pts Care (In Minutes): 70
[2024-10-12] MEDS: METHYLPREDNISOLONE 40 MG INJ IV SCH (18:09)
[2024-10-12] MEDS: NA CHLORIDE 0.9% 1,000 ML IV SCH (18:10)
[2024-10-12] MEDS: CEFEPIME 1 GM in NA CHLORIDE 0.9% 100 ML IV SCH (18:10)
[2024-10-12] MEDS: VANCOMYCIN 1 GM in NA CHLORIDE 0.9% 250 ML IVPB SCH (18:10)
[2024-10-12 18:38] VITALS: BMI 24.3
[2024-10-13] MEDS: LORazepam 2 MG/ML VIAL IV PRN (03:38)
[2024-10-13] MEDS: HYDROMORPHONE HCL 1 MG/ML INJ IV ONE (03:59)
[2024-10-13 06:22] LABS: Hematocrit 20.1 % (36.0-45.0); Hemoglobin 6.7 g/dL (12.0-15.0); MCH 31.7 pg (27.0-35.0); MCHC 33.3 g/dL (32.0-36.0); MCV 95.2 fL (80-100); Platelets 204 thou/uL (152-406); RBC Red Blood Cell Count 2.11 M/uL (3.86-4.86); Red Cell Distribution Width 16.8 % (12.1-15.2)
[2024-10-13 06:31] LABS: Albumin 1.6 g/dL (3.4-5.0); Albumin/Globulin Ratio 0.6 (1.1-1.8); Alkaline Phosphatase 64 U/L (45-117); Anion Gap 9.9 mEq/L (5.0-15.0); BUN Blood Urea Nitrogen 17 mg/dL (7-18); Bicarbonate 24 mEq/L (21-32); Bilirubin Total 0.3 mg/dL (0.2-1.0); Globulin 2.7 g/dL (2.3-3.5); Glomerular Filtration Rate 106 ml/min (=/>90); Glucose Level 148 mg/dL (74-106); Potassium 3.9 mEq/L (3.5-5.1); Protein, Total 4.3 g/dL (6.4-8.2); Sodium Level 140 mEq/L (136-145)
[2024-10-13 06:33] LABS: ALT/SGPT < 14 U/L (13-56); AST/SGOT < 10 U/L (15-37)
[2024-10-13] MEDS ORDERED: NA CHLORIDE 0.9% 250 ML IV SCH (07:00)
[2024-10-13 07:23] LABS: Band Neutrophils 5 % (0-1); Blood Morphology Comment NOT SEEN (NOT SEEN); Differential Total Cells Count 100; Lymphocytes 3 % (15-42); Metamyelocytes 2 % (0-0); Monocytes 5 % (0-10); Platelet Estimate ADEQ; Segmented Neutrophils 85 % (40-80)
[2024-10-13] MEDS: ENOXAPARIN 40 MG/0.4 ML SQ SCH (08:42)
[2024-10-13] MEDS: POTASSIUM 25 MEQ EFFERV TAB PO ONE (08:42)
[2024-10-13] MEDS ORDERED: LOPERAMIDE HCL 2 MG CAPSULE PO PRN (08:46)
[2024-10-13] MEDS: HOME MED 1 EA UNK (Duloxetine Hcl [Duloxetine Hcl] 60 MG Capsule.Dr) PO SCH (08:47)
--- NOTE | 2024-10-13 08:47 | P.PN ---
Date of Service: 10/13/24 Subjective: Was able to be weaned off of BiPAP overnight Has had some improvement Hemoglobin dropped overnight to 6.6 ROS: 10 point ROS as noted above, otherwise negative Physical exam GEN: Alert, oriented, NAD HEENT: Pale conjunctiva, sclera anicteric, CV: Regular rate and rhythm, no edema Pulm: Nonlabored respirations on nasal cannula ABD: Soft, nontender, nondistended MSK: No joint tenderness Integumentary: No rashes,skin pale Neuro: Normal speech, normal affect Vitals reviewed Assessment: Sepsis secondary to right-sided pneumonia Acute hypoxic respiratory failure secondary to above Lymphoma on chemotherapy last dose 09/30/2024 Anemia of chronic disease/malignancy Hypertension Diet controlled diabetes mellitus type 2 Plan: Sepsis secondary to right-sided pneumonia Acute hypoxic respiratory failure secondary to above Continue broad-spectrum antibiotics Weaned off BiPAP, tolerating nasal cannula at this time Pulmonology consult DNR/DNI, okay for vasopressor therapy As needed medications for anxiety to tolerate BiPAP Family states patient very sensitive to medications, try low doses first Overnight, hemoglobin dropped, irradiated PRBCs ordered Lymphoma on chemotherapy last dose 09/30/2024 Family states patient has 1 more chemo in 3 weeks They also report oncology say during scans they did not see for cancer and the chemo is working Anemia of chronic disease/malignancy Hemoglobin 6.6 this morning Ordered 1 unit irradiated PRBC Check H&H hours after blood is transfused Monitor H&H daily Iron studies ordered No signs of active bleeding, hold Lovenox today Hypertension Takes or blood pressure medicine Hold during acute phase of infection/sepsis Resume when appropriate Diet controlled diabetes mellitus type 2 ACHS Accu-Cheks, sliding scale insulinmild DVT PPX: Lovenox Code status:DNR Discharge Plan: Home Plan to discharge in: Greater than 2 days Time Spent Managing Pts Care (In Minutes): 35
[2024-10-13] MEDS ORDERED: HYDROCODONE/APAP 5/325 MG TAB PO PRN (08:50)
[2024-10-13] MEDS: Mupirocin NASAL 2 APPL/1 GM TUBE NAS SCH ×2 (08:55→20:56)
[2024-10-13] MEDS: DULOXETINE 30 MG CAP PO SCH (09:00)
[2024-10-13 09:15] LABS: Ferritin 3202.7 ng/mL (8-252)
--- NOTE | 2024-10-13 10:49 | RAD REPORT ---
Procedure: Chest Single View HISTORY: PICC line placement FINDINGS: PICC line with its tip in the SVC..
[2024-10-13] MEDS: NA CHLORIDE 0.9% 250 ML ONE (15:21)
[2024-10-13 18:16] LABS: Sqamous Epithelial <5 /HPF (None Seen); Urine Bacteria None Seen /HPF (<20); Urine Bilirubin NEGATIVE (Negative); Urine Blood Negative (Negative); Urine Clarity Clear (Clear); Urine Color Yellow (Yellow); Urine Crystals Unidentified Few /HPF (None Seen); Urine Culture Reflex Order NOT NEEDED; Urine Glucose NEGATIVE (Negative); Urine Ketones 1+ (Negative); Urine Microscopic Reflex YN ORDER UMIC; Urine Nitrite NEGATIVE (Negative); Urine Protein 1+ (Negative); Urine RBC <5 /HPF (None Seen); Urine Urobilinogen Normal (Normal); Urine WBC <5 /HPF (<5); Urine Yeast (Budding) Trace /HPF (None Seen)
[2024-10-13 18:17] LABS: Specific Gravity > 1.030 (1.005-1.030)
[2024-10-13 21:33] LABS: Hematocrit 27.9 % (36.0-45.0); Hemoglobin 9.2 g/dL (12.0-15.0)
[2024-10-14] MEDS: GUAIFENESIN 600 MG SA TAB PO SCH (04:05)
[2024-10-14] MEDS: BENZONATATE 100 MG CAP PO SCH (04:05)
[2024-10-14] MEDS: HYDROMORPHONE HCL 1 MG/ML INJ IV ONE (04:17)
[2024-10-14 05:26] LABS: Absolute Lymphocytes (CBC) 0.1 K/uL (0.7-4.9); Absolute Monocytes 0.2 K/uL (0.1-1.3); Absolute Neutrophil 7.2 K/uL (1.8-8.0); Basophils % 0.2 % (0-1.3); Hematocrit 27.6 % (36.0-45.0); Hemoglobin 9.5 g/dL (12.0-15.0); Lymphocytes % 1.4 % (15.3-44.8); MCH 31.4 pg (27.0-35.0); MCHC 34.3 g/dL (32.0-36.0); MCV 91.5 fL (80-100); MPV 9.1 fL (7.6-11.3); Monocytes % 2.3 % (3.3-12.3); Neutrophils % 96.1 % (41.7-73.7); Nucleated Red Blood Cells % 0.2 % (0-0); Platelets 245 thou/uL (152-406); RBC Red Blood Cell Count 3.02 M/uL (3.86-4.86); Red Cell Distribution Width 18.9 % (12.1-15.2)
[2024-10-14] MEDS: LORazepam 2 MG/ML VIAL IV ONE (05:33)
[2024-10-14 05:45] LABS: Albumin 1.8 g/dL (3.4-5.0); Albumin/Globulin Ratio 0.7 (1.1-1.8); Alkaline Phosphatase 68 U/L (45-117); BUN Blood Urea Nitrogen 27 mg/dL (7-18); Bicarbonate 24 mEq/L (21-32); Bilirubin Total 0.5 mg/dL (0.2-1.0); Globulin 2.7 g/dL (2.3-3.5); Glomerular Filtration Rate 102 ml/min (=/>90); Glucose Level 164 mg/dL (74-106); Protein, Total 4.5 g/dL (6.4-8.2); Sodium Level 143 mEq/L (136-145)
[2024-10-14 05:47] LABS: ALT/SGPT < 14 U/L (13-56); AST/SGOT < 10 U/L (15-37)
--- NOTE | 2024-10-14 08:18 | P.CNS ---
Date of Consult: 10/14/24 Reason for Consult: Pneumonia sepsis Chief Complaint: Pneumonia, sepsis History of Present Illness: Patient is 74 years of age metabolic syndrome she has lymphoma on chemotherapy admitted with dyspnea currently nonverbal she has to had to receive some Ativan and Dilaudid last night apparently she was having symptoms about 3 days ago went to urgent care was treated with steroids became worse has some respiratory distress last chemotherapy September 30 is currently DNR was also has a history of C. difficile and ESBL 7 Allergies metronidazole [From Flagyl] Allergy (Verified 07/16/24 12:04) Anaphylaxis adhesive Adverse Reaction (Verified 07/16/24 12:04) Rash Home Medications: Duloxetine HCl 90 mg PO DAILY 07/16/24 Loperamide [Imodium*] 2 mg PO Q4H PRN #0 cap 09/04/24 Azithromycin Tab [Zithromax*] 250 mg PO DAILY 10/12/24 Ipratropium/Albuterol Sulfate [Iprat-Albut 0.5-3(2.5) mg/3 ml] 1 amp NEB PRN PRN 10/12/24 Losartan/Hydrochlorothiazide [Losartan-Hctz 50-12.5 mg Tab] 1 tab PO DAILY 10/12/24 Methylprednisolone [Medrol dosepack] 4 mg PO BID 10/12/24 - Past Medical/Surgical History Diabetic: Yes -: small bowel lymphoma-current chemo -: Hypertension -: Diet controlled diabetes -: HTN -: Bowel resection Psychosocial/ Personal History: Lives at home with daughter - Family History Father Medical History: Heart disease, Cancer Mother Medical History: Hypertension, Diabetes Brother Medical History: Hypertension - Social History Smoking Status: Unknown if ever smoked Alcohol use: No CD- Drugs: No Caffeine use: Yes Place of Residence: Home Review of Systems is unable to be obtained Physical Examination Temp Pulse Resp BP Pulse Ox 98 F 88 14 125/68 98 10/14/24 04:00 10/14/24 06:00 10/14/24 06:00 10/14/24 06:00 10/14/24 06:00 General: Unresponsive Respiratory: Clear to auscultation bilaterally, Friction rub Cardiovascular: Regular rate/rhythm, Normal S1 S2 Gastrointestinal: Normal bowel sounds, Soft and benign Musculoskeletal: No clubbing, No swelling Integumentary: No rashes, No breakdown - Problems (1) Pneumonia Current Visit: Yes Status: Acute Plan: Patient is 74 years of age history of lymphoma on chemotherapy last treatment was September 30 admitted with worsening dyspnea or respiratory distress she has some interstitial changes with bilateral superimposed infiltrates labs chemistries reviewed mildly anemic normal renal function so far all cultures are negative patient is on broad-spectrum antibiotics no evidence of pulmonary embolism patient had a respiratory acidosis on admission currently stable Qualifiers: Pneumonia type: due to unspecified organism Lung location: unspecified part of lung
[2024-10-14] MEDS: LOSARTAN/HCTZ 50-12.5 PO SCH (08:32)
--- NOTE | 2024-10-14 09:42 | P.PN ---
Date of Service: 10/14/24 Subjective: On nasal cannula hemoglobin stable Patient drowsy but alert to verbal stimulus ROS: 10 point ROS as noted above, otherwise negative Physical exam GEN:drowsy, oriented, NAD HEENT: Pale conjunctiva, sclera anicteric, CV: Regular rate and rhythm, no edema Pulm: Nonlabored respirations on nasal cannula ABD: Soft, nontender, nondistended MSK: No joint tenderness Integumentary: No rashes,skin pale Neuro: Normal speech, normal affect Vitals reviewed Assessment: Sepsis secondary to right-sided pneumonia Acute hypoxic respiratory failure secondary to above Lymphoma on chemotherapy last dose 09/30/2024 Anemia of chronic disease/malignancy Hypertension Diet controlled diabetes mellitus type 2 Plan: Sepsis secondary to right-sided pneumonia Acute hypoxic respiratory failure secondary to above Continue broad-spectrum antibiotics Blood cultures with no growth in 24 hours Weaned off BiPAP, tolerating nasal cannula at this time Pulmonology following DNR/DNI, okay for vasopressor therapy-not necessary to this point Family states patient very sensitive to medications, try low doses first HGB stable PT consulted Lymphoma on chemotherapy last dose 09/30/2024 Family states patient has 1 more chemo in 3 weeks They also report oncology say during scans they did not see for cancer and the chemo is working Anemia of chronic disease/malignancy Ordered 1 unit irradiated PRBC 1/5 H/H stable so far after transfusion No signs of active bleeding Hypertension Home blood pressure medications resumed Diet controlled diabetes mellitus type 2 ACHS Accu-Cheks, sliding scale insulinmild DVT PPX: Lovenox Code status:DNR Discharge Plan: Home Plan to discharge in: Greater than 2 days Time Spent Managing Pts Care (In Minutes): 35
[2024-10-14] MEDS: VANCOMYCIN 1 GM in NA CHLORIDE 0.9% 250 ML IVPB SCH (17:05)
[2024-10-14] MEDS ORDERED: VANCOMYCIN 1.25 GM in NA CHLORIDE 0.9% 250 ML IVPB SCH (18:00)
[2024-10-14] MEDS: GUAIFENESIN/DM 5 ML UCUP PO PRN (23:50)
[2024-10-15 04:51] LABS: Absolute Lymphocytes (CBC) 0.2 K/uL (0.7-4.9); Absolute Monocytes 0.8 K/uL (0.1-1.3); Absolute Neutrophil 9.8 K/uL (1.8-8.0); Basophils % 0.2 % (0-1.3); Hematocrit 26.6 % (36.0-45.0); Lymphocytes % 1.7 % (15.3-44.8); MCH 30.6 pg (27.0-35.0); MCHC 33.8 g/dL (32.0-36.0); MCV 90.6 fL (80-100); MPV 9.1 fL (7.6-11.3); Monocytes % 7.3 % (3.3-12.3); Nucleated Red Blood Cells % 0.1 % (0-0); Platelets 194 thou/uL (152-406); RBC Red Blood Cell Count 2.94 M/uL (3.86-4.86); Red Cell Distribution Width 18.5 % (12.1-15.2)
[2024-10-15 04:54] LABS: Neutrophils % 90.8 % (41.7-73.7)
[2024-10-15 04:55] LABS: Albumin 1.8 g/dL (3.4-5.0); Albumin/Globulin Ratio 0.8 (1.1-1.8); Alkaline Phosphatase 67 U/L (45-117); Anion Gap 7.4 mEq/L (5.0-15.0); BUN Blood Urea Nitrogen 19 mg/dL (7-18); Bicarbonate 27 mEq/L (21-32); Bilirubin Total 0.5 mg/dL (0.2-1.0); Globulin 2.3 g/dL (2.3-3.5); Glomerular Filtration Rate 102 ml/min (=/>90); Glucose Level 101 mg/dL (74-106); Potassium 3.4 mEq/L (3.5-5.1); Protein, Total 4.1 g/dL (6.4-8.2); Sodium Level 142 mEq/L (136-145)
[2024-10-15 05:01] LABS: ALT/SGPT < 14 U/L (13-56); AST/SGOT < 10 U/L (15-37)
--- NOTE | 2024-10-15 07:54 | P.PN ---
Subjective Date of Service: 10/15/24 Chief Complaint: Pneumonia, sepsis Subjective: Improving (Patient is improving more alert responsive cooperative) Review of Systems General: Weakness Respiratory: Shortness of Breath Physical Examination - Vital Signs Temperature: 98.1 F Blood Pressure: 147/72 Pulse: 79 Respirations: 20 Pulse Ox (%): 95 - Physical Exam General: Alert, Oriented x2 Respiratory: Clear to auscultation bilaterally Cardiovascular: No edema, Regular rate/rhythm, Normal S1 S2 Assessment And Plan - Current Problems (Diagnosis) (1) Pneumonia Current Visit: Yes Status: Acute Plan: Patient admitted with bilateral pneumonia feels very weak currently stable white count normal vital signs stable initially satisfactory DC IV fluid transferred to the floor physical therapy once patient is 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
[2024-10-15] MEDS: POTASSIUM 25 MEQ EFFERV TAB ONE (08:15)
[2024-10-15] MEDS: POTASSIUM 25 MEQ EFFERV TAB PO ONE (08:35)
[2024-10-15] MEDS ORDERED: LORAZEPAM 0.5 MG TABLET PO PRN (10:01)
--- NOTE | 2024-10-15 11:56 | P.PN ---
Date of Service: 10/15/24 Subjective: Continues on 2 LNC awake and conversing, but with dyspnea Downgrade to the Floor today ROS: 10 point ROS as noted above, otherwise negative Physical exam GEN:Awake, alert, and oriented, NAD HEENT: Pale conjunctiva, sclera anicteric, CV: NSR, S1 S2 present , no edema Pulm: Nonlabored respirations, dyspnea present, on nasal cannula ABD: Soft on palpation, ND/NT MSK: No joint tenderness Integumentary: No rashes,skin pale Neuro: Normal speech, normal affect Vitals reviewed Assessment: Sepsis secondary to right-sided pneumonia Acute hypoxic respiratory failure secondary to above Lymphoma on chemotherapy last dose 09/30/2024 Anemia of chronic disease/malignancy Hypertension Diet controlled diabetes mellitus type 2 Plan: Sepsis secondary to right-sided pneumonia Acute hypoxic respiratory failure secondary to above Continue broad-spectrum antibiotics Blood cultures with no growth in 24 hours Tolerating nasal cannula Pulmonology following DNR/DNI, okay for vasopressor therapy-not necessary to this point Family states patient very sensitive to medications, try low doses first HGB stable PT consulted Lymphoma on chemotherapy last dose 09/30/2024 Family states patient has 1 more chemo in 3 weeks Family reports oncology says during scans they did not see cancer and the chemo is working Anemia of chronic disease/malignancy Ordered 1 unit irradiated PRBC 1/5 H/H stable 10/16 No signs of active bleeding Hypertension continue Home blood pressure medications Diet controlled diabetes mellitus type 2 ACHS Accu-Cheks, sliding scale insulinmild DVT PPX: Lovenox Code status:DNR Discharge Plan: Home Plan to discharge in: Greater than 2 days
--- NOTE | 2024-10-15 12:28 | P.CNS ---
Date of Consult: 10/15/24 This is a 74-year-old female I was consulted for pneumonia, patient has significant past medical history of hypertension, diet controlled diabetes mellitus, lymphoma on chemotherapy coming into the hospital with shortness of breath as patient is confused most of the history was obtained through medical record and his staff. Patient chest x-ray showed she has right-sided pneumonia and she was admitted for further evaluation and management. Her last chemotherapy was on September 30 and she was recently treated for C. difficile and UTI secondary to ESBL in August. Patient is in ICU on IV antibiotic and oxygen therapy Past medical history as per HPI Social history: Non-smoker nondrinker Medications Acetaminophen (Acetaminophen 325 Mg Tablet) 650 mg PO Q4HP PRN PRN Reason: Pain scale 2-4 (Mild) Albuterol Sulfate (Albuterol 2.5 Mg/3 Ml Neb Stacie) 2.5 mg NEB Q6HP PRN PRN Reason: SHORTNESS OF BREATH Benzonatate (Benzonatate 100 Mg Cap) 100 mg PO TID [facility] Last Admin: 10/15/24 08:36 Dose: 100 mg Duloxetine HCl (Duloxetine 30 Mg Cap) 90 mg PO DAILY [facility] Last Admin: 10/15/24 08:35 Dose: 90 mg Enoxaparin Sodium (Enoxaparin 40 Mg/0.4 Ml) 40 mg SQ DAILY [facility] Last Admin: 10/15/24 08:36 Dose: 40 mg Guaifenesin (Guaifenesin 600 Mg Sa Tab) 600 mg PO BID [facility] Last Admin: 10/15/24 08:35 Dose: 600 mg Guaifenesin/Dextromethorphan (Guaifenesin/Dm 5 Ml Ucup) 10 ml PO Q4HR PRN PRN Reason: COUGH Last Admin: 10/15/24 03:17 Dose: 10 ml HCTZ/Losartan Potassium (Losartan/Hctz 50-12.5) 1 tab PO DAILY [facility] Last Admin: 10/15/24 08:36 Dose: 1 tab Cefepime HCl 1 gm/ Sodium (Chloride) 100 mls @ 200 mls/hr IV Q12H [facility]; Protocol Last Admin: 10/15/24 04:17 Dose: 100 mls Sodium Chloride (Sodium Chloride) 250 mls @ 0 mls/hr IV .Q0M [facility] Loperamide HCl (Loperamide Hcl 2 Mg Capsule) 2 mg PO Q4H PRN PRN Reason: DIARRHEA Lorazepam (Lorazepam 0.5 Mg Tablet) 0.5 mg PO Q8H PRN PRN Reason: ANXIETY Mupirocin (Mupirocin Nasal 2 Appl/1 Gm Tube) 1 appl DAVID BID [facility] Stop: 10/18/24 09:01 Last Admin: 10/15/24 08:35 Dose: 1 appl Ondansetron HCl (Ondansetron 4 Mg/2 Ml Vial) 4 mg IV Q6HP PRN PRN Reason: NAUSEA / VOMITING Allergy/AdvReac Type Severity Reaction Status Date / Time metronidazole [From Flagyl] Allergy Anaphylaxis Verified 07/16/24 12:04 adhesive AdvReac Rash Verified 07/16/24 12:04 Review of system: Unable to obtain Physical exam: Patient laying in bed on nasal cannula not in any acute distress Temp Pulse Resp BP Pulse Ox 98.1 F 80 23 H 144/80 H 95 10/15/24 07:54 10/15/24 10:25 10/15/24 10:25 10/15/24 10:25 10/15/24 10:25 HEENT: Within normal limits Neck: Supple, no JVD Lungs: Basal crackles Heart: S1-S2 regular Abdomen: Soft, bowel sound present Extremity: No edema Laboratory Last Values WBC 6.20 thou/uL (4.3-10.9) 10/12/24 11:52 RBC 2.59 M/uL (3.86-4.86) L 10/12/24 11:52 Hgb 8.1 g/dL (12.0-15.0) L 10/12/24 11:52 Hct 24.5 % (36.0-45.0) L 10/12/24 11:52 MCV 94.6 fL (80-100) 10/12/24 11:52 MCH 31.3 pg (27.0-35.0) 10/12/24 11:52 MCHC 33.1 g/dL (32.0-36.0) 10/12/24 11:52 RDW 16.8 % (12.1-15.2) H 10/12/24 11:52 Plt Count 255 thou/uL (152-406) 10/12/24 11:52 MPV 9.3 fL (7.6-11.3) 10/12/24 11:52 Neutrophils % 92.3 % (41.7-73.7) H 10/12/24 11:52 Lymphocytes % 1.3 % (15.3-44.8) L 10/12/24 11:52 Monocytes % 6.2 % (3.3-12.3) 10/12/24 11:52 Eosinophils % 0.1 % (0-4.4) 10/12/24 11:52 Basophils % 0.1 % (0-1.3) 10/12/24 11:52 Absolute Neutrophils 5.7 K/uL (1.8-8.0) 10/12/24 11:52 Segmented Neutrophils 18 % (40-80) L 10/12/24 11:52 Band Neutrophils 55 % (0-1) H 10/12/24 11:52 Absolute Lymphocytes 0.1 K/uL (0.7-4.9) L 10/12/24 11:52 Lymphocytes 8 % (15-42) L 10/12/24 11:52 Monocytes 4 % (0-10) 10/12/24 11:52 Absolute Monocytes 0.4 K/uL (0.1-1.3) 10/12/24 11:52 Absolute Eosinophils 0.0 K/uL (0-0.5) 10/12/24 11:52 Absolute Basophils 0.0 K/uL (0-0.5) 10/12/24 11:52 Metamyelocytes 2 % (0-0) H 10/12/24 11:52 Myelocytes 2 % (0-0) H 10/12/24 11:52 Reactive Lymphocytes 11 % 10/12/24 11:52 Toxic Granulation 2+ 10/12/24 11:52 Platelet Estimate Adeq 10/12/24 11:52 Anisocytosis 1+ 10/12/24 11:52 Tear Drop Cells 1+ 10/12/24 11:52 Morphology Comment Noted (NOT SEEN) 10/12/24 11:52 PT 18.2 SECONDS (9.4-12.5) H 10/12/24 11:52 INR 1.65 10/12/24 11:52 APTT 29.4 SECONDS (24.3-36.9) 10/12/24 11:52 pH 7.29 (7.35-7.45) L 10/12/24 13:24 pCO2 49.3 mmHG (35-45) H 10/12/24 13:24 pO2 76.8 mmHG (75-100) 10/12/24 13:24 HCO3 22.8 mmol/L (22-28) 10/12/24 13:24 Base Excess -2.8 mmol/L 10/12/24 13:24 Oxyhemoglobin 88.6 % (94-97) L 10/12/24 13:24 ABG O2 Sat (Measured) 90.9 % (92-98.5) L 10/12/24 13:24 ABG Carboxyhemoglobin 0.8 % (0-1.5) 10/12/24 13:24 ABG Methemoglobin 1.7 % (0-1.5) H 10/12/24 13:24 Other Total Hgb 7.4 g/dl (12-18) L 10/12/24 13:24 Inspired O2 40.0 % 10/12/24 13:24 Sodium 135 mEq/L (136-145) L 10/12/24 11:52 Potassium 3.3 mEq/L (3.5-5.1) L 10/12/24 11:52 Chloride 102 mEq/L (98-107) 10/12/24 11:52 Carbon Dioxide 27 mEq/L (21-32) 10/12/24 11:52 Anion Gap 9.3 mEq/L (5.0-15.0) 10/12/24 11:52 BUN 18 mg/dL (7-18) 10/12/24 11:52 Creatinine 0.54 mg/dL (0.55-1.02) L 10/12/24 11:52 Est GFR (CKD-EPI) 97 ml/min (=/>90) 10/12/24 11:52 Glucose 149 mg/dL (74-106) H 10/12/24 11:52 Lactic Acid 1.6 mmol/L (0.4-2.0) 10/12/24 11:52 Calcium 9.0 mg/dL (8.5-10.1) 10/12/24 11:52 Total Bilirubin 0.5 mg/dL (0.2-1.0) 10/12/24 11:52 AST < 10 U/L (15-37) L 10/12/24 11:52 ALT < 14 U/L (13-56) 10/12/24 11:52 Alkaline Phosphatase 75 U/L (45-117) 10/12/24 11:52 NT-Pro-B Natriuret Pep 1889 pg/mL (<125) H 10/12/24 11:52 Serum Total Protein 5.4 g/dL (6.4-8.2) L 10/12/24 11:52 Albumin 2.0 g/dL (3.4-5.0) L 10/12/24 11:52 Globulin 3.4 g/dL (2.3-3.5) 10/12/24 11:52 Albumin/Globulin Ratio 0.6 (1.1-1.8) L 10/12/24 11:52 SARS-CoV-2 Ag (Rapid) Negative (Negative) 10/12/24 14:56 Assessment and plan: Right-sided pneumonia patient currently on IV antibiotic continue for total of 10 days can be switched to orals if patient is stable Hypoxia and sepsis History of lymphoma on chemotherapy Moderate protein calorie malnourishment Continue pulmonary hygiene and antibiotic and supportive care Thank you for consult
[2024-10-15] MEDS ORDERED: ACETAMINOPHEN 500 MG TAB PO PRN (13:10)
[2024-10-15] MEDS: MORPHINE 2 MG/ML SYR IV PRN (13:43)
[2024-10-16 06:21] LABS: Absolute Lymphocytes (CBC) 0.2 K/uL (0.7-4.9); Absolute Monocytes 0.5 K/uL (0.1-1.3); Absolute Neutrophil 10.8 K/uL (1.8-8.0); Basophils % 0.2 % (0-1.3); Eosinophils % 0.3 % (0-4.4); Hematocrit 26.3 % (36.0-45.0); Hemoglobin 8.7 g/dL (12.0-15.0); Lymphocytes % 1.5 % (15.3-44.8); MCHC 33.2 g/dL (32.0-36.0); MCV 90.3 fL (80-100); MPV 9.4 fL (7.6-11.3); Monocytes % 4.4 % (3.3-12.3); Neutrophils % 93.6 % (41.7-73.7); Nucleated Red Blood Cells % 0.1 % (0-0); Platelets 124 thou/uL (152-406); RBC Red Blood Cell Count 2.91 M/uL (3.86-4.86); Red Cell Distribution Width 17.7 % (12.1-15.2)
[2024-10-16 06:47] LABS: AST/SGOT 11 U/L (15-37); Albumin 1.7 g/dL (3.4-5.0); Albumin/Globulin Ratio 0.8 (1.1-1.8); Alkaline Phosphatase 65 U/L (45-117); Anion Gap 8.2 mEq/L (5.0-15.0); BUN Blood Urea Nitrogen 11 mg/dL (7-18); Bicarbonate 29 mEq/L (21-32); Bilirubin Total 0.5 mg/dL (0.2-1.0); Globulin 2.2 g/dL (2.3-3.5); Glomerular Filtration Rate 116 ml/min (=/>90); Glucose Level 91 mg/dL (74-106); Potassium 3.2 mEq/L (3.5-5.1); Protein, Total 3.9 g/dL (6.4-8.2); Sodium Level 136 mEq/L (136-145)
[2024-10-16 06:56] LABS: ALT/SGPT < 14 U/L (13-56)
[2024-10-16] MEDS: POTASSIUM 25 MEQ EFFERV TAB PO ONE (09:35)
[2024-10-16 09:37] LABS: Differential Total Cells Count 100
[2024-10-16 09:38] LABS: Anisocytosis 1+; Band Neutrophils 9 % (0-1); Blood Morphology Comment NOTED (NOT SEEN); Lymphocytes 2 % (15-42); Metamyelocytes 2 % (0-0); Monocytes 4 % (0-10); Myelocytes 1 % (0-0); Platelet Estimate DECR; Segmented Neutrophils 82 % (40-80); Teardrop Cell FEW
[2024-10-16 09:39] LABS: Toxic Granulation 1+
[2024-10-16] MEDS: PIPER TAZO 3.375 GM in NA CHLORIDE 0.9% 100 ML IV SCH (12:36)
[2024-10-16] MEDS: POTASSIUM CL SA 10 MEQ TAB PO ONE (14:27)
--- NOTE | 2024-10-16 16:49 | PN ---
Subjective: The patient is more alert today. Denies any headache, nausea, vomiting, chest pain, abd ominal pain, constipation, or diarrhea. Objective: Vital Signs: Temperature 98, pulse 97, respirations 18, blood pressure 125/64. Lungs: Basal crackles. Heart: S1, S2. Regular. Abdomen: Soft, nontender. Bowel sounds present. Extremities: Trace edema. Laboratory Data: WBC 11.5, hemoglobin 8.7, platelets 124. Chemistry shows BUN of 11, creatinine 0.2 . Micro data; no growth in blood cultures. No new chest x-ray available today. Assessment And Plan: Right lower lobe pneumonia, leukocytosis. History of lymphoma and chemotherapy . Moderate protein-calorie malnourishment. Continue pulmonary hygiene and antibiotic. Leukocytosis and thrombocytopenia; if it continues, need to repeat blood cultures and chest x-ray. We will follo w the patient closely. NF/MODL Voice ID: [id number] Report ID: [id number]
--- NOTE | 2024-10-16 18:59 | P.PN ---
Date of Service: 10/16/24 Subjective: Sleeping but awakens easily On 1.5 LNC this AM no new complaints ROS: 10 point ROS as noted above, otherwise negative Physical exam GEN:Alert and Oriented x3, NAD HEENT: Pale conjunctiva, sclera anicteric, CV: RRR, S1 S2 present , no edema Pulm: Nonlabored respirations, on nasal cannula ABD: Soft on palpation, ND/NT, active bowel sounds MSK: No joint tenderness Integumentary: No rashes,skin pale Neuro: Normal speech, normal affect Vitals reviewed Assessment: Sepsis secondary to right-sided pneumonia Acute hypoxic respiratory failure secondary to above Lymphoma on chemotherapy last dose 09/30/2024 Anemia of chronic disease/malignancy Hypertension Diet controlled diabetes mellitus type 2 Plan: Sepsis secondary to right-sided pneumonia Acute hypoxic respiratory failure secondary to above Continue broad-spectrum antibiotics Blood cultures with no growth in 24 hours Tolerating nasal cannula Pulmonology following DNR/DNI, okay for vasopressor therapy-not necessary to this point Family states patient very sensitive to medications, try low doses first HGB stable PT consulted Lymphoma on chemotherapy last dose 09/30/2024 Family states patient has 1 more chemo in 3 weeks Family reports oncology says during scans they did not see cancer and the chemo is working Anemia of chronic disease/malignancy Ordered 1 unit irradiated PRBC 1/5 H/H stable 10/16 No signs of active bleeding Hypertension continue Home blood pressure medications Diet controlled diabetes mellitus type 2 ACHS Accu-Cheks, sliding scale insulinmild DVT PPX: Lovenox Code status:DNR Discharge Plan: Home Plan to discharge in: Greater than 2 days
[2024-10-17 07:08] LABS: Hematocrit 26.3 % (36.0-45.0); Hemoglobin 8.8 g/dL (12.0-15.0); MCH 30.3 pg (27.0-35.0); MCHC 33.4 g/dL (32.0-36.0); MCV 90.5 fL (80-100); MPV 9.5 fL (7.6-11.3); Platelets 139 thou/uL (152-406); RBC Red Blood Cell Count 2.91 M/uL (3.86-4.86); Red Cell Distribution Width 17.3 % (12.1-15.2)
[2024-10-17 07:13] LABS: Albumin 1.7 g/dL (3.4-5.0); Albumin/Globulin Ratio 0.8 (1.1-1.8); Alkaline Phosphatase 66 U/L (45-117); Anion Gap 5.5 mEq/L (5.0-15.0); BUN Blood Urea Nitrogen 8 mg/dL (7-18); Bicarbonate 33 mEq/L (21-32); Bilirubin Total 0.4 mg/dL (0.2-1.0); Globulin 2.2 g/dL (2.3-3.5); Glomerular Filtration Rate 109 ml/min (=/>90); Glucose Level 104 mg/dL (74-106); Potassium 3.5 mEq/L (3.5-5.1); Protein, Total 3.9 g/dL (6.4-8.2); Sodium Level 137 mEq/L (136-145)
[2024-10-17 07:14] LABS: ALT/SGPT < 14 U/L (13-56); AST/SGOT < 10 U/L (15-37)
[2024-10-17] MEDS: POTASSIUM CL SA 10 MEQ TAB PO ONE (08:32)
--- NOTE | 2024-10-17 08:42 | P.PN ---
Subjective Date of Service: 10/17/24 Chief Complaint: Pneumonia, sepsis Subjective: Improving (She is disoriented does not know why she is in the hospital confused) Review of Systems General: Weakness Respiratory: Shortness of Breath Physical Examination - Vital Signs Temperature: 98.4 F Blood Pressure: 127/59 Pulse: 106 Respirations: 18 Pulse Ox (%): 97 - Physical Exam General: Alert, Delirious Cardiovascular: No edema, Regular rate/rhythm Gastrointestinal: Normal bowel sounds, Soft and benign Assessment And Plan - Current Problems (Diagnosis) (1) Pneumonia Current Visit: Yes Status: Acute Plan: Patient admitted with pneumonia she is currently doing better there is no evidence of sepsis cultures are all negative can change to p.o. levofloxacin charge planning physical therapy signs stable Qualifiers: Pneumonia type: due to unspecified organism Lung location: unspecified part of lung
[2024-10-17 09:24] LABS: Atypical Lymphocytes 1 %; Band Neutrophils 6 % (0-1); Differential Total Cells Count 100; Lymphocytes 1 % (15-42); Metamyelocytes 1 % (0-0); Monocytes 7 % (0-10); Myelocytes 1 % (0-0); Platelet Estimate DECR; Segmented Neutrophils 83 % (40-80)
[2024-10-17 09:25] LABS: Blood Morphology Comment NOT SEEN (NOT SEEN)
[2024-10-17] MEDS: ALBUTEROL 2.5 MG/3 ML NEB SOL NEB PRN (09:57)
[2024-10-17] MEDS: INSULIN REGULAR (HUMAN) 100 UNIT/ML SQ ONE (18:40)
--- NOTE | 2024-10-17 21:04 | P.PN ---
Date of Service: 10/17/24 Subjective: Awake and confused this AM Hungry, repositioned in bed Will discuss discharge placing with the family ROS: 10 point ROS as noted above, otherwise negative Physical exam GEN: Awake and confused, NAD HEENT: Pale conjunctiva, sclera anicteric, CV: Mild tachycardia, S1 S2 present , no edema Pulm: Nonlabored respirations, clear BBS ,on nasal cannula ABD: Soft on palpation, nontender, active bowel sounds MSK: No joint tenderness Integumentary: No rashes,skin pale Neuro: Normal speech, normal affect Vitals reviewed Assessment: Sepsis secondary to right-sided pneumonia Acute hypoxic respiratory failure secondary to above Lymphoma on chemotherapy last dose 09/30/2024 Anemia of chronic disease/malignancy Hypertension Diet controlled diabetes mellitus type 2 Plan: Sepsis secondary to right-sided pneumonia Acute hypoxic respiratory failure secondary to above Continue broad-spectrum antibiotics Blood cultures with no growth Tolerating nasal cannula Pulmonology following DNR/DNI, okay for vasopressor therapy-not necessary to this point Family states patient very sensitive to medications, try low doses first HGB stable PT consulted Lymphoma on chemotherapy last dose 09/30/2024 Family states patient has 1 more chemo in 3 weeks Family reports oncology says during scans they did not see cancer and the chemo is working Anemia of chronic disease/malignancy Ordered 1 unit irradiated PRBC 1/5 H/H stable 10/16 No signs of active bleeding Hypertension continue Home blood pressure medications Diet controlled diabetes mellitus type 2 ACHS Accu-Cheks, sliding scale insulinmild DVT PPX: Lovenox Code status:DNR Discharge Plan: Home Plan to discharge in: Greater than 2 days
[2024-10-18 06:26] LABS: Absolute Lymphocytes (CBC) 0.2 K/uL (0.7-4.9); Absolute Monocytes 0.4 K/uL (0.1-1.3); Basophils % 0.3 % (0-1.3); Eosinophils % 0.5 % (0-4.4); Hematocrit 26.1 % (36.0-45.0); Hemoglobin 8.7 g/dL (12.0-15.0); Lymphocytes % 2.3 % (15.3-44.8); MCH 30.4 pg (27.0-35.0); MCHC 33.3 g/dL (32.0-36.0); MCV 91.1 fL (80-100); MPV 8.2 fL (7.6-11.3); Monocytes % 5.1 % (3.3-12.3); Neutrophils % 91.8 % (41.7-73.7); Nucleated Red Blood Cells % 0.1 % (0-0); Platelets 196 thou/uL (152-406); RBC Red Blood Cell Count 2.87 M/uL (3.86-4.86); Red Cell Distribution Width 17.5 % (12.1-15.2)
[2024-10-18 06:50] LABS: Albumin 1.8 g/dL (3.4-5.0); Albumin/Globulin Ratio 0.8 (1.1-1.8); Alkaline Phosphatase 67 U/L (45-117); Anion Gap 6.5 mEq/L (5.0-15.0); BUN Blood Urea Nitrogen 8 mg/dL (7-18); Bicarbonate 31 mEq/L (21-32); Bilirubin Total 0.5 mg/dL (0.2-1.0); Globulin 2.3 g/dL (2.3-3.5); Glomerular Filtration Rate 106 ml/min (=/>90); Glucose Level 102 mg/dL (74-106); Potassium 3.5 mEq/L (3.5-5.1); Protein, Total 4.1 g/dL (6.4-8.2); Sodium Level 137 mEq/L (136-145)
[2024-10-18 06:53] LABS: ALT/SGPT < 14 U/L (13-56); AST/SGOT < 10 U/L (15-37)
[2024-10-18] MEDS: POTASSIUM CL SA 10 MEQ TAB PO ONE (11:17)
[2024-10-18 20:58] VITALS: BP 134/59; TEMP 98
[2024-10-18 20:59] VITALS: O2SAT 93
[2024-10-18] MEDS ORDERED: ENSURE ENLIVE 237 ML CAN PO SCH (21:00)
--- NOTE | 2024-10-18 21:05 | P.DS ---
Admission Date: 10/12/24 Discharge Date: 10/18/24 Disposition: DC HOME/HOME HEALTH CARE Discharge Condition: FAIR Reason for Admission: Pneumonia, sepsis Brief History of Present Illness: Diagnosis Sepsis secondary to right-sided pneumonia Acute hypoxic respiratory failure secondary to above Lymphoma on chemotherapy last dose 09/30/2024 Anemia of chronic disease/malignancy Hypertension Diet controlled diabetes mellitus type 2 HPI 10/12/24 74-year-old female with history of hypertension, diet-controlled diabetes, lymphoma on chemotherapy presents to the emergency department with chief complaint of shortness of breath. Daughters report that she began having symptoms about 3 days ago, she was seen at an urgent care and given steroids and breathing treatments, subsequently prescribed different steroids and breathing treatments by her PCP but not getting better. She was brought to the emergency department found to be hypoxic and placed on nasal cannula, she was still in respiratory distress despite the use of nasal cannula and for that reason she was placed on BiPAP. Her imaging was significant for a right sided pneumonia. Her last chemotherapy was on September 30, she gets it every 3 weeks and has a port in place. She is a DNI/DNR. Of note she was also treated for C. difficile and ESBL UTI in late August at our facility. She was started on IV antibiotics and placed on BiPAP, will need to be admitted to the ICU for close monitoring/continuous BiPAP. Family states that he be okay with vasopressors, no CPR or intubation. Hospital Course: Selina was treated for Physical exam GEN: Awake and confused, NAD HEENT: Pale conjunctiva, sclera anicteric, CV: Mild tachycardia, S1 S2 present , no edema Pulm: Nonlabored respirations, clear BBS ,on nasal cannula ABD: Soft on palpation, nontender, active bowel sounds MSK: No joint tenderness Integumentary: No rashes,skin pale Neuro: Normal speech, normal affect Vital Signs/Physical Exam: Temp Pulse Resp BP Pulse Ox 98.0 F 96 H 18 134/59 L 93 10/18/24 20:00 10/18/24 20:00 10/18/24 20:00 10/18/24 20:00 10/18/24 20:00 Laboratory Data at Discharge: WBC 8.80 thou/uL (4.3-10.9) 10/18/24 06:16 Hgb 8.7 g/dL (12.0-15.0) L 10/18/24 06:16 Hct 26.1 % (36.0-45.0) L 10/18/24 06:16 Plt Count 196 thou/uL (152-406) D 10/18/24 06:16 PT 18.2 SECONDS (9.4-12.5) H 10/12/24 11:52 INR 1.65 10/12/24 11:52 APTT 29.4 SECONDS (24.3-36.9) 10/12/24 11:52 Sodium 137 mEq/L (136-145) 10/18/24 06:16 Potassium 3.5 mEq/L (3.5-5.1) 10/18/24 06:16 BUN 8 mg/dL (7-18) 10/18/24 06:16 Creatinine 0.38 mg/dL (0.55-1.02) L 10/18/24 06:16 Glucose 102 mg/dL (74-106) 10/18/24 06:16 Total Bilirubin 0.5 mg/dL (0.2-1.0) 10/18/24 06:16 AST < 10 U/L (15-37) L 10/18/24 06:16 ALT < 14 U/L (13-56) 10/18/24 06:16 Alkaline Phosphatase 67 U/L (45-117) 10/18/24 06:16 Home Medications: Duloxetine HCl 90 mg PO DAILY 07/16/24 Loperamide [Imodium*] 2 mg PO Q4H PRN #0 cap 09/04/24 Azithromycin Tab [Zithromax*] 250 mg PO DAILY 10/12/24 Ipratropium/Albuterol Sulfate [Iprat-Albut 0.5-3(2.5) mg/3 ml] 1 amp NEB PRN PRN 10/12/24 Losartan/Hydrochlorothiazide [Losartan-Hctz 50-12.5 mg Tab] 1 tab PO DAILY 10/12/24 Methylprednisolone [Medrol dosepack] 4 mg PO BID 10/12/24 Amox/Clavulanate [Augmentin 875-125 Tab] 1 each PO BID #20 tab 10/18/24 Benzonatate [Tessalon Perle*] 100 mg PO TID #30 cap 10/18/24 Ensure Enlive 237 ml PO BID #30 can 10/18/24 Guaif/Dm [Robitussin Dm*] 10 ml PO Q4HR PRN #237 ml 10/18/24 New Medications: Guaif/Dm [Robitussin Dm*] 10 ml PO Q4HR PRN #237 ml PRN Reason: Cough Amox/Clavulanate [Augmentin 875-125 Tab] 1 each PO BID #20 tab Ensure Enlive 237 ml PO BID #30 can Benzonatate [Tessalon Perle*] 100 mg PO TID #30 cap Diet: Regular Activity: Fall precautions Followup: Salud Herrera MD [ACTIVE - CAN ADMIT] - 1 Week Wang Friedman DO [Primary Care Provider] - 1-2 Weeks
--- NOTE | 2024-10-21 11:18 | EKG ---
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
== END 2024-10-18 20:30 | disposition home health service (06) | DRG 871 ==
LOC: ER 11:27 → ERHOLD 15:47 → 3RD-ICU 17:33 → 4TH 10-15 12:48
PROVIDERS: ADMIT Hospitalist; ATTEND Internal Medicine
PROC: 4A033R1 Measurement of Arterial Saturation, Peripheral, Percutaneous Approach (ICD-10-PCS; principal; 2024-10-12)
PROC: 5A09457 Assistance with Respiratory Ventilation, 24-96 Consecutive Hours, Continuous Positive Airway Pressure (ICD-10-PCS; 2024-10-12)
PROC: 02HV33Z Insertion of Infusion Device into Superior Vena Cava, Percutaneous Approach (ICD-10-PCS; 2024-10-13)
PROC: 30233N1 Transfusion of Nonautologous Red Blood Cells into Peripheral Vein, Percutaneous Approach (ICD-10-PCS; 2024-10-13)
DX: A41.9 Sepsis, unspecified organism (principal); J18.9 Pneumonia, unspecified organism; J96.01 Acute respiratory failure with hypoxia; C85.90 Non-Hodgkin lymphoma, unspecified, unspecified site; E44.0 Moderate protein-calorie malnutrition; E11.9 Type 2 diabetes mellitus without complications; E78.00 Pure hypercholesterolemia, unspecified; I10 Essential (primary) hypertension; D63.0 Anemia in neoplastic disease; E87.6 Hypokalemia; D69.6 Thrombocytopenia, unspecified; R65.20 Severe sepsis without septic shock; Z66 Do not resuscitate; Z88.8 Allergy status to other drugs, medicaments and biological substances; Z11.52 Encounter for screening for COVID-19; Z85.89 Personal history of malignant neoplasm of other organs and systems; Z91.048 Other nonmedicinal substance allergy status; Z79.899 Other long term (current) drug therapy; Z68.24 Body mass index [BMI] 24.0-24.9, adult
CPT/HCPCS: 36415; 36600; 71045; 71275; 80053; 80202; 81001; 82728; 82805; 82947; 83540; 83605; 83880; 84132; 84466; 85014; 85018; 85025; 85610; 85730; 86850; 86900; 86901; 86920; 87040; 87804; 87811; 93005; 94640; 94660; 94668; 94760; 97116; 97161; 97530; 99285; J0692; J0696; J1171; J1650; J2270; J2543; J2919; J7030; J7050; J7613; J7644; P9040; Q9967